=== PATIENT | female | born 1970 | race Caucasian/White ===

== ENCOUNTER 2017-09-24 22:15 | Emergency (ER) | payer MEDICARE, SELFPAY ==
[2017-09-24 22:15] VITALS: BP 140/80; PULSE 106; RESP 19; TEMP 37.3; O2SAT 94; BMI 37.3
--- NOTE | 2017-09-24 23:29 | ED.RN ---
pt reports to this rn that she has not thrown up and has just felt nauseated. pt reports nausea started less than 12hr ago. 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
--- NOTE | 2017-09-24 23:37 | ED.DCSUM_ITS ---
- ER Visit Summary Date of Service: 09/24/17 Chief Complaint: [] Nausea with diarrhea and stomach cramping History of Present Illness: The patient is a 47 F complaining of the above chest since earlier today. She is unsure if she picked something up from a friend who had a stomach flu or if she has food exposure diarrhea. No bad food she can think of however. She has mild diffuse cramps. No home treatment. No recent antibiotics. She has had 3 episodes of loose watery diarrhea Physical Examination: Vital signs reviewed General: Well-nourished well-developed Head: Normocephalic atraumatic Eyes: Pupils equal round and reactive to light extraocular movements intact ENT: TMs clear no hemotympanum no trauma Neck: Nontender full range of motion Cardiovascular: Regular rate rhythm no murmurs normal S1-S2 Respiratory: No distress clear to auscultation bilaterally chest nontender Abdomen: Soft nontender nondistended normal bowel sounds no masses Back: Nontender no CVA tenderness Extremities: Nontender active range of motion ?4 extremities no trauma Skin: Normal color no trauma Neuro alert oriented cranial nerves II through XII intact normal strength sensation reflexes Test Results: [] Emergency Department Course and Treatment: [] Is nontoxic. I do not feel she needs lab work or imaging. She was given intramuscular Toradol and oral Zofran and oral Imodium and will continue Bentyl Zofran and Imodium at home. She will follow-up as an outpatient. This is likely stomach flu. She will return if she worsens. Treatment Plan: [] Disposition: [] Impression: [] Nausea with abdominal cramping and diarrhea This note was generated with [employer] dictation software. It may contain incorrect words, spelling, and punctuation that were not noted in review of the chart prior to signing ED Disposition - Plan for ED Patient: Chief Complaint: Nausea/Vomiting/Diarrhea Referrals: Sourav Forbes MD [Primary Care Provider] -
--- NOTE | 2017-09-24 23:37 | ED.DEP ---
ED Disposition - Plan for ED Patient: Disposition: Home or Assisted Living Chief Complaint: Nausea/Vomiting/Diarrhea Instructions: ED Gastroenteritis Viral Prescriptions: Ondansetron [Zofran Odt] 4 mg PO Q8H PRN PRN #10 tab PRN Reason: Nausea Dicyclomine HCl [Bentyl] 20 mg PO TIDAC #20 cap Referrals: Sourav Forbes MD [Primary Care Provider] -
[2017-09-24] MEDS: Loperamide 2 MG Capsule 4 MG PO (23:47)
[2017-09-24] MEDS: Ketorolac 60 MG/2 ML Vial IM (23:48)
[2017-09-24] MEDS: Ondansetron ODT 4 MG Tablet PO (23:49)
== END 2017-09-24 23:54 | disposition home or self-care (01) ==
LOC: ED 23:49
PROVIDERS: Emergency Provider Emergency Medicine; Family Provider Internal Medicine; PCP Internal Medicine
DX: K52.9 Noninfective gastroenteritis and colitis, unspecified (principal); R11.0 Nausea; R10.9 Unspecified abdominal pain; R19.7 Diarrhea, unspecified; E66.9 Obesity, unspecified; E11.9 Type 2 diabetes mellitus without complications; I10 Essential (primary) hypertension; Z79.84 Long term (current) use of oral hypoglycemic drugs; Z79.899 Other long term (current) drug therapy
CPT/HCPCS: 96372; 99283

== ENCOUNTER 2018-07-26 18:13 | Emergency (ER) | payer MEDICARE, SELFPAY ==
[2018-07-26 18:13] VITALS: BP 123/73; PULSE 103; RESP 16; TEMP 36.3; O2SAT 98; BMI 37.5
--- NOTE | 2018-07-26 18:25 | ED.VISSUMM ---
- ER Visit Summary Date of Service: 07/26/18 Chief Complaint: Dizzy History of Present Illness: The patient is a 48 F who ate to [employer] and [employer], noticed she was feeling slightly dizzy took her blood sugar and it was in the 300s. She feels slightly lightheaded. She has no chest pain shortness of breath fever or chills. She is on oral hypoglycemics at home. She denies any nausea vomiting or abdominal pain. She does admit to not eating healthy recently Physical Examination: Not appear in acute distress. Slightly dry mucous membranes, no obvious facial deformity No C-spine tenderness supple neck. Regular rate and rhythm without any obvious murmurs Clear lungs bilaterally speaking in full sentences without any obvious respiratory distress Abdomen soft and nontender no guarding or rebound Moves all extremities without any difficulty or pain. Skin does not show any obvious rashes or lesions, no trauma. Alert oriented ?3 with no gross focal deficit Emergency Department Course and Treatment: Patient received IV fluids, blood work is unremarkable she feels improved I believe she can be discharged in stable condition he is to follow-up with her doctor, she has an appointment in 5 days. I educated her on somewhat healthy eating. Disposition: d/c in stable condition Impression: Hyperglycemia Dehydration This note was generated with [employer] dictation software. It may contain incorrect words, spelling, and punctuation that were not noted in review of the chart prior to signing ED Disposition - Plan for ED Patient: Disposition: Home or Assisted Living Diagnosis: DM type 2 (diabetes mellitus, type 2) Referrals: Sourav Forbes MD [Primary Care Provider] - 1 Week
[2018-07-26] MEDS: 0.9% Normal Saline 1,000 ML 1000 ML IV (18:39)
[2018-07-26 18:46] LABS: Bedside Glucose 407 mg/dL (70-110)
[2018-07-26 18:47] LABS: Absolute Lymphocyte Count 2.46 X10^3/ul (0.83-4.51); Absolute Neutrophil Count 9.9 X10^3/uL (2.0-7.7); Basophil# 0.05 X10^3/uL; Basophil% 0.4 % (0-1); Eosinophil# 0.07 X10^3/uL; Eosinophils% 0.5 % (0-5); Hematocrit 43.2 % (37-47); Hemoglobin 14.1 g/dl (12.0-15.0); Lymphocyte # 2.46 X10^3/ul (4.0); Lymphocyte % 18.4 % (19-41); Mean Corp Hgb Conc 32.6 g/gl (32-36); Mean Corpuscular Hgb 29.1 pg (27.0-32.0); Mean Corpuscular Volume 89.3 fL (81-99); Mean Platelet Vol. 10.2 fl (6.2-12.0); Monocyte# 0.91 X10^3/uL; Monocyte% 6.8 % (0-10); Neutrophil # 9.88 X10^3/uL (2.7-7.7); Neutrophil % 73.7 % (47-70); Platelet Count 466 K/mm3 (150-450); RBC Distribution Width CV 13.6 % (11.6-14.6); RBC Distribution Width SD 44.4 fl (35.1-43.9); Red Blood Count 4.84 M/mm3 (4.2-5.4); White Blood Count 13.4 K/mm3 (4.4-11.0)
[2018-07-26 18:48] LABS: POSITIVE COUNT NO; POSITIVE DIFFERENTIAL NO; POSITIVE MORPHOLOGY NO
[2018-07-26 19:02] LABS: ALB/GLOB Ratio 1.1 RATIO (0.9-2.4); AST(SGOT) 13 U/L (15-37); Alanine Aminotransfer ALT/SGPT 25 U/L (13-56); Albumin, Serum 4.2 g/dL (3.2-5.0); Alkaline Phosphatase 78 U/L (45-117); Anion Gap 14 (5-15); BUN 24 mg/dL (7-18); BUN/Creat Ratio 17.1 RATIO (10-20); Calcium,Total 9.9 mg/dL (8.5-10.1); Chloride 94 mmol/L (98-107); EST Glomerular Filtration Rate 42 mL/min (>60); Est Glom Filt Rate - Afr Amer 51 mL/min (>60); Estimated Creatinine Clearance 38.44 ml/min; Globulin 3.8 g/dL (2.2-4.2); Glucose 377 mg/dL (74-106); Potassium 3.3 mmol/L (3.5-5.1); Sodium Level 133 mmol/L (136-145)
--- NOTE | 2018-07-26 20:37 | ED.DEP ---
ED Disposition - Plan for ED Patient: Disposition: Home or Assisted Living Diagnosis: DM type 2 (diabetes mellitus, type 2) Referrals: Sourav Forbes MD [Primary Care Provider] - 1 Week
--- NOTE | 2018-07-26 20:39 | ED.DEP ---
ED Disposition - Plan for ED Patient: Disposition: Home or Assisted Living Diagnosis: DM type 2 (diabetes mellitus, type 2) Instructions: ED Hyperglycemia Diabetic Referrals: Sourav Forbes MD [Primary Care Provider] - 1 Week
[2018-07-26 21:01] VITALS: BP 125/60; PULSE 93; RESP 16; O2SAT 96
== END 2018-07-26 21:03 | disposition home or self-care (01) ==
PROVIDERS: Emergency Provider Emergency Medicine; Family Provider Internal Medicine; PCP Internal Medicine
DX: E11.65 Type 2 diabetes mellitus with hyperglycemia (principal); E86.0 Dehydration; Z79.84 Long term (current) use of oral hypoglycemic drugs
CPT/HCPCS: 80053; 82962; 85025; 96360; 96365; 99283; J7030

== ENCOUNTER 2018-12-11 21:48 | Emergency (ER) | payer MEDICARE, SELFPAY ==
[2018-12-11 21:49] VITALS: BP 128/70; PULSE 82; RESP 16; TEMP 36.7; O2SAT 97; BMI 38.9
--- NOTE | 2018-12-11 22:46 | ED.DCSUM_ITS ---
History of Present Illness Chief Complaint: Abscess Informant: Patient Narrative: Stated 5 days ago she developed a small pimple under her right breast fold. It is tender and sore. Is slightly gotten bigger over the last 5 days. No home treatment. She is never had this before. Current severity is mild. No surrounding redness. No fevers or chills.. Hurts to touch. - Past Medical History (1) Chest pain Status: Acute (2) DM type 2 (diabetes mellitus, type 2) Status: Chronic (3) HTN (hypertension), benign Status: Chronic (4) Obesity Status: Chronic Past Medical History - Allergies and Home Meds Allergies/Adverse Reactions: Allergies No Known Allergies Allergy (Verified 12/11/18 21:54) Primary Care Physician: Sourav Forbes MD [Primary Care Provider] - Prior records reviewed: Yes Past Medical History: None Surgical History: - - denies surgical history Lives: Alone Smoking Status: Never smoker Alcohol: None Drugs: None - Family History Maternal Family History: Reports: Heart Disease Paternal Family History: Reports: - - copd Review of Systems General: Denies: Chills, Fever, Sweats Eyes: Denies: Visual changes - bilaterally, Diplopia ENT: Denies: Rhinorrhea, Sore throat Cardiovascular: Denies: Chest pain, Palpitations Respiratory: Denies: Dyspnea, Cough, Dyspnea on exertion Gastrointestinal: Denies: Abdominal pain, Nausea, Vomiting, Diarrhea, Melena, Hematochezia Genitourinary: Denies: Dysuria, Hematuria, Frequency Musculoskeletal: Denies: Back pain, Extremity Pain Skin: Reports: Abscess. Denies: Rash Neurological: Denies: Headache, Weakness, Numbness Physical Exam Vital Signs/Narrative: Vital Signs Temp Pulse Resp BP Pulse Ox 12/11/18 21:49 98.0 F 82 16 128/70 H 97 General: Well nourished, Well developed, No Acute Distress Head: Normocephalic, Atraumatic Eyes: Perrl, EOMI ENT: Moist mucous membranes, No rhinorrhea Neck: Supple, Nontender Cardiovascular: Regular rate, Regular rhythm, No murmurs Respiratory: No distress, CTA bilaterally, Chest nontender Abdomen: Soft, Nontender, Nondistended, Normal bowel sounds Back: Nontender, Normal Inspection Extremities: Nontender, No edema Skin: Normal color, - - Has a superficial boil the size of a dime under her right breast at the skin fold. It is mildly tender. It is more hard than fluctuant. No surrounding cellulitis. Negative for: No rash Neurological: Alert, Oriented x3, Cranial nerves II-XII grossly intact, Normal Strength, Normal Sensation Psychological: Normal affect, Normal Mood Diagnostic/Tx/Re-eval - Medical Decision Making She consented to incision and drainage. Wound washed with chlorhexidine. Anesthetized with 5 cc of 1% lidocaine. Wound was then washed again with chlorhexidine. A linear incision approximately 1 cm was made across the 70% of the surface of the wound. There is mild purulent discharge. This was all sque ezed out. It is too superficial to place a wick. It was washed with saline and chlorhexidine. They will close by secondary intention. Given a dose of Bactrim and will continue this for the next 7 days. She is a diabetic. We will follow- up as an outpatient. ED Disposition - Plan for ED Patient: Disposition: Home or Assisted Living Diagnosis: Skin abscess, Encounter for incision and drainage procedure Instructions: ABSCESS, Incision and Drainage Prescriptions: Smz/Tmp Ds [Bactrim Ds] 1 tab PO BID #14 tab Prescription Printed Referrals: Sourav Forbes MD [Primary Care Provider] -
[2018-12-11] MEDS: Smz/Tmp Ds Tablet 1 TABLET PO (22:57)
[2018-12-11 23:31] VITALS: BP 124/76; PULSE 87; RESP 19; O2SAT 98
== END 2018-12-11 23:57 | disposition home or self-care (01) ==
PROVIDERS: Emergency Provider Emergency Medicine; Family Provider Internal Medicine; PCP Internal Medicine
DX: L02.219 Cutaneous abscess of trunk, unspecified (principal); E11.9 Type 2 diabetes mellitus without complications; I10 Essential (primary) hypertension; E66.9 Obesity, unspecified; Z79.84 Long term (current) use of oral hypoglycemic drugs; Z79.899 Other long term (current) drug therapy
CPT/HCPCS: 10060; 99283

== ENCOUNTER 2019-03-05 20:22 | Emergency (ER) | payer MEDICARE, SELFPAY ==
[2019-03-05 20:22] VITALS: BP 157/81; PULSE 85; RESP 17; TEMP 36.8; O2SAT 96; BMI 38.5
--- NOTE | 2019-03-05 20:25 | RAD_ITS ---
STUDY: X-RAY - RIGHT HAND, ATTENTION FIFTH FINGER REASON FOR EXAM: Female, 48 years old. Fall. Unable to straighten finger. TECHNIQUE: 3 view(s) of the finger were obtained. COMPARISON: None. FINDINGS: Normal metacarpal head. There is dorsal hyperextension all of the metacarpophalangeal joint. Normal proximal phalanx. Normal middle phalanx. Normal distal phalanx. There is a hallmark flexion of the proximal interphalangeal joint. Normal distal interphalangeal joint. The soft tissues are unremarkable. RAD/Finger(s) Min 2 Views IMPRESSION: Findings most suggestive of ligamentous injury along the flexor tendon sheath of the finger with hyperextension. There is no visualized fracture or dislocation. Electronically Signed: Derik Emerson DO at 20:46 EDT Tel [phone], Service support ,
--- NOTE | 2019-03-05 22:08 | DCINST.ED_ITS ---
ED Disposition - Plan for ED Patient: Instructions: Tendon Rupture, Finger Prescriptions: Hydrocodone Bitart/Apap 5-325 [[place] 5MG-325MG] 1 tab PO Q6H PRN PRN 3 Days #10 tab PRN Reason: Pain Prescription Printed Referrals: Garry Greer MD [STAFF PHYSICIAN] -
--- NOTE | 2019-03-05 22:08 | ED.DCSUM_ITS ---
- ER Visit Summary Date of Service: 03/05/19 Chief Complaint: Right pinky injury History of Present Illness: The patient is a 48 F who injured her right pinky finger when she fell today. No other injuries or complaints. Physical Examination: Right small finger is held in flexion at the patient PIP joint, and extension at the MCP joint. Skin is intact. Neurovascular intact distally. Test Results: X-rays show no fracture or dislocation. There is suggestion of a flexor tendon injury. Emergency Department Course and Treatment: Digital block was performed. Examination showed intact range of motion. No deformities. She was splinted in neutral position. Follow-up with hand surgery. Treatment Plan: As above Disposition: Discharge Impression: 1. Right small finger flexor tendon injury This note was generated with [employer] dictation software. It may contain incorrect words, spelling, and punctuation that were not noted in review of the chart prior to signing ED Disposition - Plan for ED Patient: Disposition: Home or Assisted Living Instructions: Tendon Rupture, Finger Prescriptions: Hydrocodone Bitart/Apap 5-325 [[place] 5MG-325MG] 1 tab PO Q6H PRN PRN 3 Days #10 tab PRN Reason: Pain Prescription Printed Referrals: Garry Greer MD [STAFF PHYSICIAN] -
[2019-03-05] MEDS: HYDROcodone Bitartrate/Apap 5/325 Tablet PO (22:23)
[2019-03-05 22:24] VITALS: BP 148/78; PULSE 78; RESP 16; O2SAT 99
== END 2019-03-05 22:25 | disposition home or self-care (01) ==
LOC: ED 21:39
PROVIDERS: Emergency Provider Emergency Medicine; Family Provider Internal Medicine; PCP Internal Medicine
DX: S66.104A Unspecified injury of flexor muscle, fascia and tendon of right ring finger at wrist and hand level, initial encounter (principal); W19.XXXA Unspecified fall, initial encounter; Y93.9 Activity, unspecified; Y92.9 Unspecified place or not applicable; E11.9 Type 2 diabetes mellitus without complications; I10 Essential (primary) hypertension; E78.00 Pure hypercholesterolemia, unspecified; Z79.899 Other long term (current) drug therapy; Z79.84 Long term (current) use of oral hypoglycemic drugs
CPT/HCPCS: 73140; 99282

== ENCOUNTER 2019-04-14 12:00 | Outpatient (RCR) | payer MEDICARE, SELFPAY ==
--- NOTE | 2019-03-20 10:06 | HP.OTEVAL_ITS ---
Patient's Visit Information DAYAMI MONTES is a 49 year old F, referred to Occupational Therapy by Jose Hurley MD, with a diagnosis of boutonniere deformity. Date of Evaluation: 03/19/19 Occupational Therapist: Marian Fu, JENNIFER/Rowdy, CHT - Subjective Subjective: This 49 year old female was seen for OT eval with dx of right LF Boutonniere deformiity. pt states she has increase pain if she has to use her hand. Pt states she had a fall on 03/05/19, and did see on 03/11/19. Pt states she has pain with ADls and IADLs. pt states she is using her orthosis daily. - ADLs Dressing: Bra, Shoes Fasteners: Tie shoes, Buttons, Zippers Bathing: Handle washcloth & soap, Wash hair Toileting: Perineal care Grooming: Comb hair, Squeeze toothpaste on Kitchen: Open jars, Take dish out of oven, Load/unload air conditioning specialist Miscellaneous: Open medication bottle, Write - Pain right LF 0 Pain Intensity Range: 8 - ROM MP: right LF 0/70 left 0/90 PIP: right LF 0/NT left 0/100 DIP: right LF 0/15 left 0/65 ROM Comments: with orthosis off no boutonniere deformity noted. - Strength Slat Basket Maker Machine: right NT left 40# Lateral Pinch: right 4# left 10# Tripod Pinch: right 2# left 8# - Sensation Sensation Comments: denies - Quick DASH-Disab of Arm,Shoulder& Hand Quick DASH Score: 56.8175 - Goals Goal:100% adherence to protocol: Yes Comment: Boutonniere deformity Goal:ROM equal to unaffected hand: Yes Goal:Slat Basket Maker Machine/Pinch strength at least 75% of unaffected hand: Yes Goal:No pain with affected hand use: Yes Goal:PIP Circumferences equal to unaffected hand: Yes Goal:Full use of affected hand in daily activities including: Yes - Rehabilitation General Assessment: Pt has been in orthosis for boutonniere deformity for 1 week. Current orthosis is providing good alignment and protection of PIP. Pt limited with ROM and strength while healing pt needs increase assistance with IADLs and ADLs. Pt would benefit from skilled OT services 1 x week for 6 weeks- Thapist is following acute boutonniere deformity protocol with no active PIP ROM until pt is at 6 weeks unless otherwise advised by dr. Pt demo understanding of DIP and MP ROM ex and use of orthosis and agrees to POC. Rehabilitation Potential: Good - Anticipated Interventions Anticipated Interventions: A/AAROM/PROM, Strengthening, Modalities, Orthoses, J oint Protection/Energy Conservation - Visit Plan Frequency: 1x/Week Duration: 6 Weeks TEXT: Thank you for the opportunity to evaluate your patient. For Medicare and Medicare HMO plans, please review the plan of care and approve it. It will need to be FAXED BACK to us at [phone] for Medicare purposes. Please let me know if there are questions or concerns regarding this plan of care. Physician Signature: Date:
--- NOTE | 2019-04-14 18:36 | HP.OTREVAL ---
Jose Hurley MD, It has been my pleasure to treat DAYAMI MONTES over the last 3 visits for boutonniere deformity. Please see the progress note below for an update on the occupational therapy plan of care! Subjective: pt arrives with orthosis on- states pain when she uses it- pt reports she is wearing splint at all times- pt 6 weeks post injury Objective/Function: right LF PIP .2 larger than unaffected hand. ROM of right LF PIP 0/80. pt demo with good healing and is 6 weeks injury- pt using orthosis and noted redness on dorsal PIP from orthosis. therapist rec'd pt to cont. with ROM ex and wear night orthosis for next 3 weeks. pt demo understanding. Plan Frequency: 1x/Week Duration: 3 Weeks Plan: cont with protocol Anticipated Interventions Anticipated Interventions: A/AAROM/PROM, Strengthening, Modalities, Orthoses, Joint Protection/Energy Conservation Please do not hesitate to contact me at [phone] by phone or if you have questions or concerns regarding this new plan of care! Sincerely, Marian Fu, OTR/L, CHT
--- NOTE | 2019-05-14 18:31 | HP.OT.NRP ---
HP - Discharge Summary - Patient Information DAYAMI MONTES was seen in my office for initial evaluation on 03/19/19. The following Plan of Care was established for this patient: Initial Frequency: 1x/Week Initial Duration: 3 Weeks Plan: cont with protocol - Anticipated Interventions Anticipated Interventions: A/AAROM/PROM, Strengthening, Modalities, Orthoses, Joint Protection/Energy Conservation This patient was last seen in our office 04/14/19. Pertinent comments regarding their Occupational therapy will appear below: Pt seen for 3 visits during her healing phase-pt returned to and has not scheduled further apts. due to time lapse in skilled services pt d/c at this time. At this point I will be discontinuing this patient from occupational therapy. I would be happy to see this patient again in the future if found appropriate by the physician. Thank you! Marian uF, OTR/L, CHT
== END 2019-04-14 19:00 | disposition home or self-care (01) ==
LOC: OT 12:00
PROVIDERS: Family Provider Internal Medicine; PCP Internal Medicine; Referring Provider Orthopaedic Surgery Hand Surgery; Visit Provider Orthopaedic Surgery Hand Surgery
DX: M20.021 Boutonniere deformity of right finger(s) (principal)
CPT/HCPCS: 97110; 97166; 97530

== ENCOUNTER 2019-05-28 14:05 | Emergency (ER) | payer MEDICARE, SELFPAY ==
[2019-05-28 14:06] VITALS: BP 152/103; PULSE 93; RESP 16; TEMP 36.4; O2SAT 96; BMI 38.5
--- NOTE | 2019-05-28 14:25 | VDLE_ITS ---
Reason For Study: Pain Procedure LEFT Exam performed portable in ED. GSV is normal. Lt FV distal visualized with color only, pt CFV is compressible, spontaneous, phasic, unable to tolerate compression. competent, and demonstrates normal A preliminary report was called and/or faxed augmentation. to [facility]. FV is compressible, spontaneous, phasic, competent and demonstrates normal augmentation. POP V is compressible, spontaneous, phasic, competent and demonstrates normal augmentation. T/P Trunk is compressible. PTV is compressible. LT PerV is compressible. Interpretation Summary There is no evidence of left lower extremity deep vein thrombosis. Left great saphenous vein appears patent and compressible segmentally. Limitation noted of left femoral vein distal inspection with patient unable to tolerate compression. Ordering Physician: Robyn Burgos Referring Physician: Sourav Forbes M.D. Performed By: Lynn Espinal RVT
--- NOTE | 2019-05-28 14:27 | ED.VIS.GEN ---
History of Present Illness Chief Complaint: Lower Extremity Injury Detail of Chief Complaint: Left leg pain Informant: Patient Onset: Days - 2 to 3 days Context: Gradual Onset Timing: Waxes and wanes Current Severity: Mild Maximum Severity: Moderate Narrative: Patient describes a waxing and waning pain to the posterior left knee and along the medial calf that is been ongoing for the past 2 or 3 days. She denies any known injury. No history of blood clots and no risk factors. Patient states she went to urgent care but was told they could not rule out a blood clot was sent to the emergency room. - Past Medical History (1) High cholesterol Status: Chronic (2) DM type 2 (diabetes mellitus, type 2) Status: Chronic (3) HTN (hypertension), benign Status: Chronic Past Medical History - Allergies and Home Meds Allergies/Adverse Reactions: Allergies No Known Allergies Allergy (Verified 05/28/19 14:05) Primary Care Physician: Sourav Forbes MD [Primary Care Provider] - Prior records reviewed: Yes Surgical History: - - denies surgical history Smoking Status: Never smoker - Family History Maternal Family History: Reports: Heart Disease Paternal Family History: Reports: - - copd Review of Systems General: Denies: Chills, Fever Eyes: Denies: Visual changes - bilaterally ENT: Denies: Bilateral ear pain Cardiovascular: Denies: Chest pain, Palpitations Respiratory: Denies: Dyspnea, Cough Gastrointestinal: Denies: Abdominal pain, Nausea, Vomiting Musculoskeletal: Reports: Swelling, Extremity Pain Skin: Denies: Rash Neurological: Denies: Headache Hematologic: Denies: Easy bruising Allergy: Denies: Uticaria Physical Exam Vital Signs/Narrative: Vital Signs Temp Pulse Resp BP Pulse Ox 05/28/19 14:06 97.5 F L 93 16 152/103 H 96 Inital Vital Signs reviewed: Yes General: Well nourished, Well developed Head: Normocephalic ENT: Moist mucous membranes Neck: Supple Cardiovascular: Regular rate, Regular rhythm Respiratory: No distress, CTA bilaterally Abdomen: Soft, Nontender Extremities: - - Mild tenderness palpation posterior left knee. No palpable masses. No significant edema is noted of the left leg when compared to right. No skin changes. Strong distal pulses are noted. There is good range of motion of the joints. Skin: Normal color, No rash Neurological: Alert, Oriented x3, Normal Strength, Normal Sensation Psychological: Normal affect Diagnostic/Tx/Re-eval Venous ultrasound of the left lower extremity is obtained and reveals no evidence of DVT or Acosta's cyst. - Medical Decision Making Test results are discussed with patient at bedside. She has had no recent injury do not think x-rays be beneficial. She will be given an Nicolas wrap and advised ice and elevate her knee. If symptoms worsen she is to follow-up for repeat testing. ED Disposition - Plan for ED Patient: Disposition: Home or Assisted Living Diagnosis: Knee sprain Instructions: Knee Sprain Referrals: Sourav Forbes MD [Primary Care Provider] - 1 Week if not improving
== END 2019-05-28 15:39 | disposition home or self-care (01) ==
PROVIDERS: Emergency Provider Emergency Medicine; Family Provider Internal Medicine; PCP Internal Medicine
DX: S83.92XA Sprain of unspecified site of left knee, initial encounter (principal); X58.XXXA Exposure to other specified factors, initial encounter; Y93.9 Activity, unspecified; Y92.9 Unspecified place or not applicable; E78.00 Pure hypercholesterolemia, unspecified; E11.9 Type 2 diabetes mellitus without complications; I10 Essential (primary) hypertension; Z79.84 Long term (current) use of oral hypoglycemic drugs; Z79.899 Other long term (current) drug therapy; M79.89 Other specified soft tissue disorders
CPT/HCPCS: 93971; 99282

== ENCOUNTER 2019-08-13 23:09 | Observation (INO) | payer MEDICARE, SELFPAY ==
[2019-08-13 23:10] VITALS: BP 124/61; PULSE 102; RESP 16; TEMP 36.5; O2SAT 99; BMI 39.3
--- NOTE | 2019-08-13 23:24 | RAD_ITS ---
STUDY: X-RAY CHEST REASON FOR EXAM: Female, 49 years old. cp that started tonight TECHNIQUE: Single frontal view of the chest. COMPARISON: 02/17/2017 FINDINGS: The lungs are clear and expanded. There is no demonstrated pleural abnormality. Normal size heart. Normal mediastinum and mahendra. Normal visualized pulmonary arteries. Normal visualized aortic arch and descending thoracic aorta. Normal visualized thoracic spine. Normal visualized ribs, clavicles, and shoulders. There is no demonstrated abnormality of the visualized soft tissue structures of the upper abdomen. RAD/Chest 1 View (Portable) IMPRESSION: Normal x-ray examination of the chest. Electronically Signed: Darin Butler MD at 23:44 EST Tel , Service support ,
--- NOTE | 2019-08-13 23:24 | EKG12_ITS ---
Test Reason : CP ADMISSION Blood Pressure : / mmHG Vent. Rate : 080 BPM Atrial Rate : 080 BPM P-R Int : 160 ms QRS Dur : 088 ms QT Int : 394 ms P-R-T Axes : -04 052 026 degrees QTc Int : 454 ms Normal sinus rhythm Normal ECG When compared with ECG of 14-AUG-2019 01:08, MANUAL COMPARISON REQUIRED, DATA IS UNCONFIRMED Confirmed by CASTRO [place], CHRISTA ([id number]), city editor AMARILIS GEORGE ([id number]) on 08/18/2019 2:50:50 PM Referred By: LESLIE Confirmed By:JEZ ERAZO MD
--- NOTE | 2019-08-13 23:25 | ED.VIS.GEN ---
History of Present Illness Chief Complaint: Chest Pain Informant: Patient Onset: Today Current Severity: Mild Maximum Severity: Moderate Narrative: Patient presents with epigastric and substernal chest pressure that started approximate 45 minutes prior to arrival. She states she has had decreased p.o. intake lately. She ate approximately 3 bites of her dinner and then developed this chest pressure. She has no known history of reflux disease. She does report that it feels similar to heartburn. - Past Medical History (1) DM type 2 (diabetes mellitus, type 2) Status: Chronic (2) HTN (hypertension), benign Status: Chronic (3) High cholesterol Status: Chronic (4) Obesity Status: Chronic Past Medical History - Allergies and Home Meds Allergies/Adverse Reactions: Allergies No Known Allergies Allergy (Verified 08/13/19 23:18) Primary Care Physician: Sourav Forbes MD [Primary Care Provider] - Prior records reviewed: Yes Surgical History: - - denies surgical history Lives: Spouse/ Significant Other Smoking Status: Never smoker - Family History Maternal Family History: Reports: Heart Disease Paternal Family History: Reports: - - copd Review of Systems General: Denies: Chills, Fever Eyes: Denies: Visual changes - bilaterally ENT: Denies: Bilateral ear pain Cardiovascular: Reports: Chest pain Respiratory: Denies: Dyspnea, Cough Gastrointestinal: Reports: Abdominal pain. Denies: Nausea, Vomiting, Diarrhea Musculoskeletal: Denies: Extremity Pain Skin: Denies: Rash Neurological: Denies: Headache Allergy: Denies: Uticaria Physical Exam Vital Signs/Narrative: Vital Signs Temp Pulse Resp BP Pulse Ox 08/13/19 23:10 97.7 F L 102 H 16 124/61 H 99 Inital Vital Signs reviewed: Yes General: Well nourished, Well developed Head: Normocephalic ENT: Moist mucous membranes Cardiovascular: Regular rate, Regular rhythm Respiratory: No distress, CTA bilaterally, Chest tenderness - Chest tenderness over the sternum. Abdomen: Soft, Normal bowel sounds, Tender - Epigastric tenderness.. Negative for: Guarding, Rebound tenderness Extremities: Nontender Skin: Normal color Neurological: Alert, Oriented x3 Psychological: Normal affect Diagnostic/Tx/Re-eval Impressions Chest X-Ray 08/13/19 23:24 IMPRESSION: Normal x-ray examination of the chest. Electronically Signed: Darin Butler MD at 23:44 EST Tel , Service support , 08/13/19 23:24 Chest 1 View (Portable) [RAD] Stat Laboratory Results 08/13/19 08/13/19 23:57 23:57 WBC 13.9 H RBC 4.17 L Hgb 12.9 Hct 38.7 MCV 92.8 MCH 30.9 MCHC 33.3 RDW Std Deviation 45.8 H RDW Coeff of Kaushik 13.6 Plt Count 470 H MPV 9.9 Immature Gran % (Auto) 0.300 Neut % (Auto) 61.5 Lymph % (Auto) 28.7 [place] % (Auto) 7.6 Eos % (Auto) 1.5 Baso % (Auto) 0.4 Absolute Neuts (auto) 8.5 H Absolute Lymphs (auto) 3.98 Nucleated RBC % 0 Sodium 136 Potassium 4.2 Chloride 102 Carbon Dioxide 26.0 Anion Gap 8 BUN 20 H Creatinine 0.83 Estim Creat Clear Calc 64.13 Est GFR (MDRD) Af Amer 93 Est GFR (MDRD) Non-Af 77 BUN/Creatinine Ratio 24.0 H Glucose 154 H Calcium 9.7 Troponin I < 0.015 - EKG Initial EKG Interpretation: Sinus Rhythm - Sinus at 99. No obvious ST change. - Medical Decision Making Patient was given aspirin along with a GI cocktail. On repeat evaluation she reported no change in her symptoms. Initial blood work is negative, however patient did come in very quickly after onset of symptoms. With no history of reflux and no change with GI cocktail, I cannot clearly state that this is GERD. Repeat EKG will be obtained at this time, patient be given a dose of morphine, and she will be admitted for observation overnight. ED Disposition - Plan for ED Patient: Disposition: Acute Care Hospital [facility] Diagnosis: Chest pain Referrals: Sourav Forbes MD [Primary Care Provider] -
[2019-08-13 23:46] VITALS: O2SAT 97
[2019-08-13] MEDS: Aspirin 81 MG TAB.CHEW 324 MG PO (23:52)
[2019-08-13] MEDS: Mag Hydrox/Al Hydrox/Simeth 30 ML UDC PO (23:53)
[2019-08-13] MEDS: 0.9% Normal Saline 1,000 ML 150 ML IV (23:57)
[2019-08-14] VITALS (12 sets, daily range): BP systolic 84–129; BP diastolic 42–74; PULSE 74–95; RESP 14–20; TEMP 36.5–36.7; O2SAT 94–100; BMI 39.1; BMI 39.2
[2019-08-14 00:04] LABS: Absolute Lymphocyte Count 3.98 X10^3/uL (0.83-4.51); Absolute Neutrophil Count 8.5 X10^3/uL (2.0-7.7); Basophil# 0.06 X10^3/uL; Basophil% 0.4 % (0-1); Eosinophil# 0.21 X10^3/uL; Eosinophils% 1.5 % (0-5); Hematocrit 38.7 % (37-47); Hemoglobin 12.9 g/dL (12.0-15.0); Lymphocyte # 3.98 X10^3/ul (4.0); Lymphocyte % 28.7 % (19-41); Mean Corp Hgb Conc 33.3 g/dL (32-36); Mean Corpuscular Hgb 30.9 pg (27.0-32.0); Mean Corpuscular Volume 92.8 fL (81-99); Mean Platelet Vol. 9.9 fl (6.2-12.0); Monocyte# 1.05 X10^3/uL; Monocyte% 7.6 % (0-10); NRBC Flagged by Analyzer 0 % (0-5); Neutrophil # 8.54 X10^3/uL (2.7-7.7); Neutrophil % 61.5 % (47-70); Platelet Count 470 K/mm3 (150-450); RBC Distribution Width CV 13.6 % (11.6-14.6); RBC Distribution Width SD 45.8 fl (35.1-43.9); Red Blood Count 4.17 M/mm3 (4.2-5.4); White Blood Count 13.9 K/mm3 (4.4-11.0)
[2019-08-14 00:23] LABS: Anion Gap 8 (5-15); BUN 20 mg/dL (7-18); Calcium,Total 9.7 mg/dL (8.5-10.1); Chloride 102 mmol/L (98-107); Creatinine, Serum 0.83 mg/dL (0.55-1.02); EST Glomerular Filtration Rate 77 mL/min (>60); Est Glom Filt Rate - Afr Amer 93 mL/min (>60); Estimated Creatinine Clearance 64.13 ml/min; Glucose 154 mg/dL (74-106); Potassium 4.2 mmol/L (3.5-5.1); Sodium Level 136 mmol/L (136-145)
--- NOTE | 2019-08-14 00:58 | EKG12_ITS ---
Test Reason : REPEAT Blood Pressure : / mmHG Vent. Rate : 088 BPM Atrial Rate : 088 BPM P-R Int : 150 ms QRS Dur : 088 ms QT Int : 364 ms P-R-T Axes : -03 047 015 degrees QTc Int : 440 ms Normal sinus rhythm Nonspecific ST abnormality Abnormal ECG Confirmed by CASTRO [place], CHRISTA ([id number]), scientific publications editor AMARILIS GEORGE ([id number]) on 08/18/2019 2:33:53 PM Referred By: ARCHANA Confirmed By:JEZ ERAZO MD
--- NOTE | 2019-08-14 00:58 | PCM.HP.STD ---
Problem List (1) High cholesterol Status: Chronic (2) Obesity Status: Chronic (3) HTN (hypertension), benign Status: Chronic (4) DM type 2 (diabetes mellitus, type 2) Status: Chronic (5) Chest pain Status: Acute History of Present Illness Date of Admission: 08/14/19 Chief Complaint: Chest Pain The patient is a 49 year old F with a significant history of hypertension; diabetes mellitus; hyperlipidemia; depression and arthritis who presents emergency department with progressively worsening substernal chest pain that started about 15 to 20 minutes before presentation. She describes her chest pain as sharp; and also as a heartburn.. Her chest pain worsens when she sits back. She denies any ameliorating factors. Chest pain started a few minutes (about 5 minutes) before she started eating goulash. However her chest pain worsened while she was eating to the point that she had to stop. Because of the pain she could not swallow. Her chest pain radiated from her sternum upwards. At the emergency department she was given some GI cocktail which did not help her. She also received some morphine that gave her some mild relief. She reports epigastric pain that started about 2 days ago. About 3 to 4 years ago she had a normal stress test. Past Medical History Past Medical History (Chronic Problems): Chronic Problems High cholesterol (Chronic) Obesity (Chronic) HTN (hypertension), benign (Chronic) DM type 2 (diabetes mellitus, type 2) (Chronic) Allergies No Known Allergies Allergy (Verified 08/13/19 23:18) Home Medications: Ambulatory Orders Medication Instructions Recorded Fluoxetine [Prozac] 20 mg PO DAILY 03/17/16 Hydrochlorothiazide [Hctz] 25 mg PO DAILY 03/17/16 Lisinopril [Zestril] 40 mg PO DAILY 03/17/16 Oxybutynin Chloride [Ditropan Xl] 10 mg PO DAILY 03/17/16 Pravastatin [Pravachol] 40 mg PO DAILY 03/17/16 metFORMIN HCl [Glucophage] 1,000 mg PO BID 03/17/16 Glipizide [Glipizide ER] 10 mg PO DAILY 12/11/18 Surgical History: tonsillectomy, - Lives: Spouse/ Significant Other Smoking Status: Never smoker Alcohol: None - *Family History Maternal History Items: Heart Disease - Her mother had atrial fibrillation. Paternal History Items: Pulmonary Disease - COPD, - Review of Systems Constitutional: Denies: Chills, Fever, Weight Change HEENT: Denies: Head Aches, Sinus Congestion, Sinus Drainage Cardiovascular: Reports: Chest Pain. Denies: Palpitations Respiratory: Reports: Shortness of Breath. Denies: Cough, Shortness of breath at rest, Sputum production Gastrointestinal: Denies: Abdominal Pain, Nausea, Vomiting Genitourinary: Denies: Dysuria Musculoskeletal: Denies: Joint Pain, Joint Tenderness Skin: Denies: Rash, Wounds Neurological: Denies: Numbness, Tingling, Focal weakness Psychiatric: Denies: Anxiety, Depression, Homicidal Ideations, Suicidal Ideations Hematologic/ Lymphatic: Denies: Easy Bruising, Easy Bleeding VTE Information - Inpt Only VTE Present on Admission: No VTE Mechan Device Prophylaxis: SCD's VTE Pharm Prophylaxis ordered?: No Patient Problems: Active and Suspected Problems Chest pain (Acute) - Physical Exam Vitals/I&O's: Vital Signs Temp Pulse Resp BP Pulse Ox 97.7 F L 95 19 H 121/74 H 97 08/13/19 23:10 08/14/19 00:29 08/14/19 00:29 08/14/19 00:29 08/14/19 00:29 Oxygen Delivery Method Room Air Weight: 97.6 kg Body Mass Index (BMI) 39.3 Finger Stick Blood Glucose 407 General: Alert, Oriented x3, Cooperative HEENT: Atraumatic, PERRLA, EOMI, Normocephalic Neck: Supple, No JVD, Negative Carotid Bruits Lungs: Clear to auscultation, Normal air movement, - - Tender chest Cardiovascular: Regular rate, Normal S1, Normal S2, No murmurs Abdomen: Bowel Sounds Present, Soft, Non Tender Extremities: No edema, Capillary Refill Less than 3 Seconds Skin: No rashes, No breakdown Musculoskeletal: No Tenderness to Palpation of Joints or Extremities Neurological: Cranial nerves II-XII grossly intact Psych/Mental Status: Normal Affect, Appropriate Laboratory Results 08/13/19 23:57: WBC 13.9 H, RBC 4.17 L, Hgb 12.9, Hct 38.7, MCV 92.8, MCH 30.9, MCHC 33.3, RDW Std Deviation 45.8 H, RDW Coeff of Kaushik 13.6, Plt Count 470 H, MPV 9.9, Immature Gran % (Auto) 0.300, Neut % (Auto) 61.5, Lymph % (Auto) 28.7, [place] % (Auto) 7.6, Eos % (Auto) 1.5, Baso % (Auto) 0.4, Absolute Neuts (auto) 8.5 H, Absolute Lymphs (auto) 3.98, Nucleated RBC % 0 08/13/19 23:57: Sodium 136, Potassium 4.2, Chloride 102, Carbon Dioxide 26.0, Anion Gap 8, BUN 20 H, Creatinine 0.83, Estim Creat Clear Calc 64.13, Est GFR (MDRD) Af Amer 93, Est GFR (MDRD) Non-Af 77, BUN/Creatinine Ratio 24.0 H, Glucose 154 H, Calcium 9.7, Troponin I < 0.015 Current Medications Sodium Chloride () 1,000 mls @ 150 mls/hr IV .Q6H40M ИРИНА Last Admin: 08/13/19 23:57 Dose: 150 mls/hr Documented by: Morphine Sulfate () 4 mg IV X1 ONE Stop: 08/14/19 00:58 Ondansetron HCl (Zofran) 4 mg IV X1 ONE Stop: 08/14/19 00:59 Assessment/Plan All Active Problems Chest pain (Acute) The patient is a 49 year old F with a significant history of hypertension; diabetes mellitus; hyperlipidemia; depression and arthritis who presents at the emergency department with progressively worsening substernal chest pain Chest pain Place on a monitored bed at the PCU CXR independently reviewed confirms no acute cardiopulmonary process. EKG independently reviewed confirms T wave flattening in inferior and anterior leads compared with EKG on 17 February 2017. Received aspirin 324 mg in emergency department ASA 81 mg p.o. daily ordered. Morphine as needed for pain We will check lipid panel. Statin: Continue home pravastatin. Initial cardiac enzymes was unremarkable. Serial cardiac enzymes Stat EKG as needed for chest pain Lisinopril continued. Chemical stress test in the AM if the cardiac enzymes are negative. Of note patient has bilateral knee arthritis and is not be optimal for patient to do treadmill stress test. Hypertension On presentation blood pressure was fairly stable Elevators and lisinopril continued. Trend blood pressure and adjust blood pressure medication. Depression: Prozac continued Diabetes mellitus with hyperglycemia: Glipizide continued. Hold metformin. Accu-Chek with correction scale insulin. Overactive bladder: Ditropan continued Morbid obesity: BMI of 39.4. Complicates care. DVT prophylaxis SCD while planning for cardiac work up for chest pain Code Visit OBSV E&M: 04141 Initial observation care L2
[2019-08-14] MEDS: Ondansetron 4 MG/2 ML Vial IV (01:04)
[2019-08-14] MEDS: Morphine 4 MG/ML Syringe IV (01:04)
--- NOTE | 2019-08-14 01:38 | EKG12_ITS ---
Test Reason : CP Blood Pressure : / mmHG Vent. Rate : 099 BPM Atrial Rate : 099 BPM P-R Int : 144 ms QRS Dur : 074 ms QT Int : 370 ms P-R-T Axes : 005 077 038 degrees QTc Int : 474 ms Normal sinus rhythm Nonspecific ST and T wave abnormality Abnormal ECG Confirmed by CASTRO [place], CHRISTA ([id number]), editor book AMARILIS GEORGE ([id number]) on 08/18/2019 2:33:42 PM Referred By: ARCHANA Confirmed By:JEZ ERAZO MD
[2019-08-14 06:16] LABS: Absolute Lymphocyte Count 3.45 X10^3/uL (0.83-4.51); Basophil# 0.05 X10^3/uL; Basophil% 0.5 % (0-1); Eosinophil# 0.11 X10^3/uL; Eosinophils% 1.1 % (0-5); Hematocrit 35.2 % (37-47); Hemoglobin 11.6 g/dL (12.0-15.0); Lymphocyte # 3.45 X10^3/ul (4.0); Lymphocyte % 33.3 % (19-41); Mean Corpuscular Hgb 30.5 pg (27.0-32.0); Mean Corpuscular Volume 92.6 fL (81-99); Mean Platelet Vol. 9.6 fl (6.2-12.0); Monocyte# 0.75 X10^3/uL; Monocyte% 7.2 % (0-10); NRBC Flagged by Analyzer 0 % (0-5); Neutrophil # 5.96 X10^3/uL (2.7-7.7); Neutrophil % 57.6 % (47-70); Platelet Count 396 K/mm3 (150-450); RBC Distribution Width CV 13.6 % (11.6-14.6); RBC Distribution Width SD 46.2 fl (35.1-43.9); White Blood Count 10.4 K/mm3 (4.4-11.0)
[2019-08-14] MEDS: Aspirin E.C. 81 MG Tablet PO (06:23)
[2019-08-14] MEDS: Lisinopril 40 MG Tablet PO (06:23)
[2019-08-14 06:35] LABS: Cholesterol 129 mg/dL (200); High Density Lipoprotein 61 mg/dL; Triglycerides 68 mg/dL; Very Low Density Lipoprotein 14 mg/dL (5-40)
[2019-08-14 06:45] LABS: Bedside Glucose 108 mg/dL (70-110)
--- NOTE | 2019-08-14 11:08 | STRESSREP ---
Stress Test Report Date: 08/14/2019 Procedure: Pharmacologic stress nuclear imaging study Indications: [Chest pain] Consent: Per the patient Procedure: The patient underwent pharmacologic (Regadenoson) evaluation with a peak heart rate of 106 beats per minute (62 %predicted maximal heart rate) and a peak blood pressure of 104/58 mmHg. The baseline ECG demonstrated [normal sinus rhythm]. EKG during lexiscan infusion revealed no significant ischemic changes. EKG post infusion revealed no significant ischemic changes. [There were no cardiac dysrhythmias pretest, during pharmacologic infusion, or recovery]. [There was no complaint of chest discomfort during pharmacologic infusion or recovery]. The examination was discontinued secondary to completion of protocol. Impression: 1. Lexiscan stress test test is negative for Lexiscan infusion induced EKG changes of ischemia. 2. Lexiscan stress test test is negative for Lexiscan infusion induced chest pain. 3. Results of the nuclear portion of the test is as below Myocardial perfusion imaging study: Technique: The patient was injected with 14.1 millicuries of technetium 99m Cardiolite and subsequently rest SPECT Cardiolite nuclear imaging was obtained in the horizontal long, vertical long, and short axis views. The patient underwent pharmacologic (Regadenoson) evaluation. Please see above for details. The patient was injected with 44.3 millicuries of technetium 99m Cardiolite and subsequently stress SPECT Cardiolite nuclear imaging was obtained in the horizontal long, vertical long, and short axis views. A gated Cardiolite study at peak stress was obtained. Interpretation: Rest and stress SPECT Cardiolite nuclear imaging status post realignment, normalization, and attenuation correction demonstrate normal myocardial radioisotope uptake. Gated images reveal septal hypokinesis which could be artifactual. The reported LVEF is 46 %. Impression: 1. There is no evidence of ischemia or infarction. 2. Estimated ejection fraction is 46%. Consider 2D echo for correlation. This note was generated with [employer] software. It may contain incorrect words, spelling, and punctuation that were not noted in checking the note before signing.
--- NOTE | 2019-08-14 11:19 | ECHOCS_ITS ---
Reason For Study: CHEST PAIN Procedure This was a 2D Doppler, Color Flow transthoracic echocardiogram. The study was technically difficult. Contrast injection was performed. Exam performed portable in patient room. Left Ventricle Normal LV size. The estimated ejection fraction is 55 %. Normal diastology for age. No regional wall motion abnormalities noted. Right Ventricle Normal RV size. Normal systolic function. Atria Normal left atrium. Normal right atrium. No doppler evidence for ASD. Mitral Valve There is no mitral valve stenosis. No mitral valve insufficiency. Tricuspid Valve There is no tricuspid stenosis. Trivial tricuspid valve insufficiency. Unable to estimate RV systolic pressure due to insufficient tricuspid regurgitant envelope. Aortic Valve Trisinus/trileaflet aortic valve. There is no aortic stenosis. No aortic valve insufficiency. Pulmonic Valve There is no pulmonic valvular stenosis. No pulmonic valve insufficiency. Great Vessels Normal aortic root. Pericardium/Pleural No pericardial effusion. Medication Diluted definity 4.0ml given slow IV push to enhance endocardial definition. MMode/2D Measurements & Calculations LVIDd: 5.1 cm IVSd: 0.73 cm Ao root diam: 2.9 cm LVIDs: 3.5 cm LVPWd: 0.81 cm RVDd: 3.5 cm FS: 31.7 % LAV(MOD-bp): 40.1 ml EDV(MOD-sp4): 110.8 ml EDV(MOD-sp2): 108.2 ml LAV(MOD-bp) Indexed: 20.4 ml/m2 ESV(MOD-sp4): 43.1 ml EF(MOD-sp2): 57.0 % LAV(MOD-sp2): 35.2 ml EF(MOD-sp4): 61.1 % LAV(MOD-sp4): 39.7 ml SV(MOD-sp4): 67.7 ml SV(MOD-sp2): 61.7 ml LA A4 area: 16.6 cm2 LA dimension(2D): 3.7 cm RA A4 area: 13.9 cm2 Time Measurements MV dec time: 0.21 sec Doppler Measurements & Calculations MV E max magdi: 80.1 cm/sec Lat Peak E' Magdi: 15.6 cm/sec Med Peak E' Magdi: 8.5 cm/sec MV A max magdi: 93.3 cm/sec E/E' lat: 5.1 E/E' med: 9.5 MV E/A: 0.86 Ao V2 max: 140.3 cm/sec LV V1 max: 102.9 cm/sec PA V2 max: 127.9 cm/sec Ao max P.9 mmHg LV V1 max P.2 mmHg TR max magdi: 246.6 cm/sec TR max P.3 mmHg Interpretation Summary The estimated ejection fraction is 55 %. Normal diastology for age. Ordering Physician: Jatin Mathews Referring Physician: Sourav Forbes M.D. Performed By: Karen Hernandez, CABRERA, RVT
[2019-08-14] MEDS: FLUoxetine 20 MG Capsule PO (11:55)
[2019-08-14] MEDS: glipiZIDE XL 5 MG Tablet 10 MG PO (11:55)
[2019-08-14] MEDS: Tolterodine Tartrate 2 MG CAP.SA PO (11:55)
[2019-08-14 12:06] LABS: Bedside Glucose 108 mg/dL (70-110)
--- NOTE | 2019-08-14 13:50 | PN_ITS ---
<Jatin Matehws - Last Filed: 08/14/19 13:50> Patient Problems: Active and Suspected Problems Chest pain (Acute) Reason for Visit: chest pain Subjective: chest pain resolved today. Pt resting comfortably in bed NAD. Stress test this AM with no ischemia however possible hypokinesis and echo recommended. Pt now awaiting echo. Vitals/I&O's: Vital Signs Temp Pulse Resp BP Pulse Ox 97.8 F 78 16 101/43 L 95 08/14/19 13:46 08/14/19 13:46 08/14/19 13:46 08/14/19 13:46 08/14/19 13:46 Oxygen Delivery Method Room Air Weight: 214 lb 1.102 oz Body Mass Index (BMI) 39.1 Finger Stick Blood Glucose 407 Intake and Output for Last 24 Hours 08/12/19 08/13/19 08/14/19 23:59 23:59 23:59 Intake Total 857.5 / 857.5 Balance 857.5 / 857.5 General: Alert, Oriented x3, Cooperative HEENT: Atraumatic, PERRLA, EOMI, Normocephalic Neck: Supple, No JVD, Negative Carotid Bruits Lungs: Clear to auscultation, Normal air movement Cardiovascular: Regular rate, No murmurs Abdomen: Bowel Sounds Present, Soft, Non Tender Extremities: No edema, Capillary Refill Less than 3 Seconds Skin: No rashes, No breakdown Musculoskeletal: No Tenderness to Palpation of Joints or Extremities Neurological: Cranial nerves II-XII grossly intact Psych/Mental Status: Normal Affect, Appropriate, Alert and oriented to time, place, person, mood and affect Laboratory Results 08/13/19 23:57: WBC 13.9 H, RBC 4.17 L, Hgb 12.9, Hct 38.7, MCV 92.8, MCH 30.9, MCHC 33.3, RDW Std Deviation 45.8 H, RDW Coeff of Kaushik 13.6, Plt Count 470 H, MPV 9.9, Immature Gran % (Auto) 0.300, Neut % (Auto) 61.5, Lymph % (Auto) 28.7, [place] % (Auto) 7.6, Eos % (Auto) 1.5, Baso % (Auto) 0.4, Absolute Neuts (auto) 8.5 H, Absolute Lymphs (auto) 3.98, Nucleated RBC % 0 08/13/19 23:57: Sodium 136, Potassium 4.2, Chloride 102, Carbon Dioxide 26.0, Anion Gap 8, BUN 20 H, Creatinine 0.83, Estim Creat Clear Calc 64.13, Est GFR (MDRD) Af Amer 93, Est GFR (MDRD) Non-Af 77, BUN/Creatinine Ratio 24.0 H, Glucose 154 H, Calcium 9.7, Troponin I < 0.015 08/14/19 03:06: Troponin I < 0.015 08/14/19 05:55: WBC 10.4, RBC 3.80 L, Hgb 11.6 L, Hct 35.2 L, MCV 92.6, MCH 30.5, MCHC 33.0, RDW Std Deviation 46.2 H, RDW Coeff of Kaushik 13.6, Plt Count 396, MPV 9.6, Immature Gran % (Auto) 0.300, Neut % (Auto) 57.6, Lymph % (Auto) 33.3, [place] % (Auto) 7.2, Eos % (Auto) 1.1, Baso % (Auto) 0.5, Absolute Neuts (auto) 6.0, Absolute Lymphs (auto) 3.45, Nucleated RBC % 0 08/14/19 05:55: Troponin I < 0.015, Triglycerides 68, Cholesterol 129, LDL Cholesterol 54, VLDL Cholesterol 14, HDL Cholesterol 61 08/14/19 06:23: POC Glucose 108 08/14/19 11:58: POC Glucose 108 Current Medications Acetaminophen (Tylenol) 650 mg PO Q6H PRN PRN PRN Reason: Pain Score 1-10/Temp > 100.7 F Aspirin (Ecotrin) 81 mg PO DAILY@0800 [facility] Last Admin: 08/14/19 06:23 Dose: 81 mg Documented by: Fluoxetine HCl (Prozac) 20 mg PO DAILY [facility] Last Admin: 08/14/19 11:55 Dose: 20 mg Documented by: Glipizide (Glucotrol Xl) 10 mg PO DAILYCM [facility] Last Admin: 08/14/19 11:55 Dose: 10 mg Documented by: Glucagon () 1 mg IM .X1 PRN PRN Reason: Hypoglycemia Hydrochlorothiazide (Hctz) 25 mg PO DAILY [facility] Last Admin: 08/14/19 11:53 Dose: Not Given Documented by: Sodium Chloride () 250 mls @ 15 mls/hr IV .[id number] PRN PRN Reason: Saline Flush Sodium Chloride () 250 mls @ 15 mls/hr IV .[id number] PRN PRN Reason: Additional IVPB Infusion Dextrose (Dextrose 10%-Water) 250 mls @ 999 mls/hr IV .Q16M PRN; Protocol PRN Reason: HYPOGLYCEMIA Insulin Human Lispro (Humalog Kwikpen (Bkc)) 0 unit SC Q6 [facility]; Protocol Last Admin: 08/14/19 11:59 Dose: Not Given Documented by: Lisinopril (Zestril) 40 mg PO DAILY [facility] Last Admin: 08/14/19 06:23 Dose: 40 mg Documented by: Melatonin (Melatonin) 3 mg PO QHS PRN PRN PRN Reason: INSOMNIA Morphine Sulfate () 2 mg IV Q3H PRN PRN PRN Reason: Pain Score 6-10/10 Ondansetron HCl (Zofran) 4 mg IV Q8H PRN PRN PRN Reason: NAUSEA/VOMITING Pravastatin Sodium (Pravachol) 40 mg PO DAILY@2200 [facility] Senna/Docusate Sodium (Senokot-S, Cecilia-Colace) 2 tablet PO BID PRN PRN PRN Reason: Constipation Sodium Chloride () 10 - 40 ml IV UD PRN PRN Reason: SALINE FLUSH Tolterodine Tartrate (Detrol La) 2 mg PO DAILY [facility] Last Admin: 08/14/19 11:55 Dose: 2 mg Documented by: STROKE Vital Signs/Narrative: Vital Signs Temp Pulse Resp BP Pulse Ox 08/14/19 13:46 97.8 F 78 16 101/43 L 95 08/14/19 11:49 97.9 F 74 14 84/42 L 94 Medical Necessity - Tobacco Use Smoking Status: Never smoker Assessment/Plan All Active Problems Chest pain (Acute) 1. Chest pain - trop neg x 3, SR on monitor. Neg EKG, neg CXR. Stres test shows no evidence of ischemia however noted decreased LVEF and possible septal hypokinesis. Echo pending. Risk factors include HTN, HLD, DMt2, + family hx, obesity, exposure to secondhand smoke as child -continue aspirin + home BP meds. 2. HTN - lisinopril, hctz 3. HLD - pravastatin 4. DMt2 with morbid obesity - glipizide, SSI 5. Depression - prozac 6. Overactive bladder - detrol DVT ppx: DC planning: This patient was seen by Jatin Mathews PA-C under the supervision of Dr. Llody. <Trae Lloyd - Last Filed: 08/14/19 15:11> Subjective: still with midsternal chest pain. Concerned, as it seems to have started when she started phentermine Vitals/I&O's: Vital Signs Temp Pulse Resp BP Pulse Ox 36.6 C 78 16 101/43 L 95 08/14/19 13:46 08/14/19 13:46 08/14/19 13:46 08/14/19 13:46 08/14/19 13:46 Oxygen Delivery Method Room Air Weight: 97.1 kg Body Mass Index (BMI) 39.1 Finger Stick Blood Glucose 407 Intake and Output for Last 24 Hours 08/12/19 08/13/19 08/14/19 23:59 23:59 23:59 Intake Total 857.5 / 857.5 Balance 857.5 / 857.5 General: Alert, Cooperative HEENT: Atraumatic, Normocephalic Neck: No Nodes, Trachea Midline Lungs: Clear to auscultation, Normal air movement, No rhonchi, No wheeze, No rales Cardiovascular: Regular rate, Regular Rhythm, Normal S1, Normal S2, No murmurs Abdomen: Bowel Sounds Present, Soft, Non Tender, Non-Distended Extremities: No edema, No Calf Tenderness Psych/Mental Status: Normal Affect, Appropriate Laboratory Results 08/13/19 23:57: WBC 13.9 H, RBC 4.17 L, Hgb 12.9, Hct 38.7, MCV 92.8, MCH 30.9, MCHC 33.3, RDW Std Deviation 45.8 H, RDW Coeff of Kaushik 13.6, Plt Count 470 H, MPV 9.9, Immature Gran % (Auto) 0.300, Neut % (Auto) 61.5, Lymph % (Auto) 28.7, [place] % (Auto) 7.6, Eos % (Auto) 1.5, Baso % (Auto) 0.4, Absolute Neuts (auto) 8.5 H, Absolute Lymphs (auto) 3.98, Nucleated RBC % 0 08/13/19 23:57: Sodium 136, Potassium 4.2, Chloride 102, Carbon Dioxide 26.0, Anion Gap 8, BUN 20 H, Creatinine 0.83, Estim Creat Clear Calc 64.13, Est GFR (MDRD) Af Amer 93, Est GFR (MDRD) Non-Af 77, BUN/Creatinine Ratio 24.0 H, Glucose 154 H, Calcium 9.7, Troponin I < 0.015 08/14/19 03:06: Troponin I < 0.015 08/14/19 05:55: WBC 10.4, RBC 3.80 L, Hgb 11.6 L, Hct 35.2 L, MCV 92.6, MCH 30.5, MCHC 33.0, RDW Std Deviation 46.2 H, RDW Coeff of Kaushik 13.6, Plt Count 396, MPV 9.6, Immature Gran % (Auto) 0.300, Neut % (Auto) 57.6, Lymph % (Auto) 33.3, [place] % (Auto) 7.2, Eos % (Auto) 1.1, Baso % (Auto) 0.5, Absolute Neuts (auto) 6.0, Absolute Lymphs (auto) 3.45, Nucleated RBC % 0 08/14/19 05:55: Troponin I < 0.015, Triglycerides 68, Cholesterol 129, LDL C holesterol 54, VLDL Cholesterol 14, HDL Cholesterol 61 08/14/19 06:23: POC Glucose 108 08/14/19 11:58: POC Glucose 108 Current Medications Acetaminophen (Tylenol) 650 mg PO Q6H PRN PRN PRN Reason: Pain Score 1-10/Temp > 100.7 F Aspirin (Ecotrin) 81 mg PO DAILY@0800 [facility] Last Admin: 08/14/19 06:23 Dose: 81 mg Documented by: Fluoxetine HCl (Prozac) 20 mg PO DAILY [facility] Last Admin: 08/14/19 11:55 Dose: 20 mg Documented by: Glipizide (Glucotrol Xl) 10 mg PO DAILYCM [facility] Last Admin: 08/14/19 11:55 Dose: 10 mg Documented by: Glucagon () 1 mg IM .X1 PRN PRN Reason: Hypoglycemia Hydrochlorothiazide (Hctz) 25 mg PO DAILY [facility] Last Admin: 08/14/19 11:53 Dose: Not Given Documented by: Sodium Chloride () 250 mls @ 15 mls/hr IV .[id number] PRN PRN Reason: Saline Flush Sodium Chloride () 250 mls @ 15 mls/hr IV .[id number] PRN PRN Reason: Additional IVPB Infusion Dextrose (Dextrose 10%-Water) 250 mls @ 999 mls/hr IV .Q16M PRN; Protocol PRN Reason: HYPOGLYCEMIA Insulin Human Lispro (Humalog Kwikpen (Bkc)) 0 unit SC Q6 [facility]; Protocol Last Admin: 08/14/19 11:59 Dose: Not Given Documented by: Lisinopril (Zestril) 40 mg PO DAILY [facility] Last Admin: 08/14/19 06:23 Dose: 40 mg Documented by: Melatonin (Melatonin) 3 mg PO QHS PRN PRN PRN Reason: INSOMNIA Morphine Sulfate () 2 mg IV Q3H PRN PRN PRN Reason: Pain Score 6-10/10 Ondansetron HCl (Zofran) 4 mg IV Q8H PRN PRN PRN Reason: NAUSEA/VOMITING Pravastatin Sodium (Pravachol) 40 mg PO DAILY@2200 [facility] Senna/Docusate Sodium (Senokot-S, Cecilia-Colace) 2 tablet PO BID PRN PRN PRN Reason: Constipation Sodium Chloride () 10 - 40 ml IV UD PRN PRN Reason: SALINE FLUSH Tolterodine Tartrate (Detrol La) 2 mg PO DAILY [facility] Last Admin: 08/14/19 11:55 Dose: 2 mg Documented by: STROKE Vital Signs/Narrative: Vital Signs Temp Pulse Resp BP Pulse Ox 08/14/19 13:46 36.6 C 78 16 101/43 L 95 08/14/19 11:49 36.6 C 74 14 84/42 L 94 Assessment/Plan Patient seen and examined independently. Data reviewed. I agree with the above note by the physician credit control assistant. 1. chest pain: atypical. stress normal, but low EF. Will check echo to see if may be an error. Suspect GI. Code Visit OBSV E&M: 36146 Subsequent observation care L2
--- NOTE | 2019-08-14 17:15 | DCINST_ITS ---
- Discharge Diagnoses Current Active Problems: Current Active and Chronic Problems Chest pain (Acute) You will use the following diet at home:: Calorie/Carbohydrate Controlled (specify 1200, 1400, etc) - 1800 sean / day, Cardiac Your food should be the consistency of: Regular Your liquids should be the consistency of: Regular/Thin Discharge Activity: Return to Normal Activity Call your doctor if you observe: Chest pain Allergies/Adverse Reactions: Allergies No Known Allergies Allergy (Verified 08/13/19 23:18) Medications to take at Discharge Fluoxetine [Prozac] 20 mg PO DAILY 03/17/16 Hydrochlorothiazide [Hctz] 25 mg PO DAILY 03/17/16 Lisinopril [Zestril] 40 mg PO DAILY 03/17/16 Oxybutynin Chloride [Ditropan Xl] 10 mg PO DAILY 03/17/16 Pravastatin [Pravachol] 40 mg PO DAILY 03/17/16 metFORMIN HCl [Glucophage] 1,000 mg PO BID 03/17/16 Glipizide [Glipizide ER] 10 mg PO DAILY 12/11/18 Phentermine HCl 15 mg PO DAILY 08/14/19 Semaglutide [Ozempic] 1 mg SQ QWEEK 08/14/19 Primary Care Physician: Sourav Forbes MD [Primary Care Provider] - Please follow up with your Primary Care Physician in: 1-2 weeks Test Results: Test results from this visit will be discussed in further detail at your follow- up appointment, if applicable. Proposed Discharge Date: 08/14/19
--- NOTE | 2019-08-14 17:18 | DS.PCM_ITS ---
Discharge Date and Diagnosis - Problem List Patient Problems: Active and Suspected Problems Chest pain (Acute) Date of Admission: 08/14/19 Date of Discharge: 08/14/19 - Primary Discharge Diagnosis Active and Suspected Problems Chest pain (Acute), musculoskeletal HTN HLD DMt2 with morbid obesity - Secondary Discharge Diagnosis Chronic Problems High cholesterol (Chronic) Obesity (Chronic) HTN (hypertension), benign (Chronic) DM type 2 (diabetes mellitus, type 2) (Chronic) Hospital Course and Treatment Imaging Results: DIAGNOSTICS Stress test: Impression: 1. There is no evidence of ischemia or infarction. 2. Estimated ejection fraction is 46%. Consider 2D echo for correlation. 08/14/19 11:19 Echo Complete W/ Contrast [ECHO] Routine Interpretation Summary The estimated ejection fraction is 55 %. Normal diastology for age. RAD/Chest 1 View (Portable) IMPRESSION: Normal x-ray examination of the chest. Operations: None Procedures: 2-D Echocardiogram, Stress test Summary of Care Provided: Hospital Course: The patient is a 49 year old F with pmhx of HTN, HLD, DMt2, obesity who presented to the ER with c/o chest pain. This was described as a substernal sharp pain occurring right as she sat down to start eating goulash. She took several bites and the pain became worse. She described it as heartburn. It was worse sitting back. In the ER, troponin was negative, CXR was negative, and EKG was negative. She was admitted for CP workup. No events on tele. Trop neg x 3. Stress test the following morning showed no ischemia, however it showed EF of 46% and possible septal hypokinesis possibly artifact, and an echo was suggested. This was obtained and was unremarkable. I recommended the patient follow up with her PCP in 1-2 weeks. I recommended that she try over the counter omeprazole if the symptoms return. This may be related to heartburn or musculoskeletal pain, it is unclear at this time. She was discharged home in stable condition. This patient was seen by Jatin Mathews PA-C under the supervision of Dr. Lloyd. [] Patient Problems: Active and Suspected Problems Chest pain (Acute) - Physical Exam Vitals/I&O's: Vital Signs Temp Pulse Resp BP Pulse Ox 97.8 F 85 16 101/43 L 95 08/14/19 13:46 08/14/19 15:00 08/14/19 13:46 08/14/19 13:46 08/14/19 13:46 Oxygen Delivery Method Room Air Weight: 214 lb 1.102 oz Body Mass Index (BMI) 39.1 Finger Stick Blood Glucose 407 Intake and Output for Last 24 Hours 08/12/19 08/13/19 08/14/19 23:59 23:59 23:59 Intake Total 857.5 / 857.5 Balance 857.5 / 857.5 General: Alert, Oriented x3, Cooperative HEENT: Atraumatic, PERRLA, EOMI, Normocephalic Neck: Supple, No JVD, Negative Carotid Bruits Lungs: Clear to auscultation, Normal air movement Cardiovascular: Regular rate, No murmurs Abdomen: Bowel Sounds Present, Soft, Non Tender, Obese Extremities: No edema, Capillary Refill Less than 3 Seconds Skin: No rashes, No breakdown Musculoskeletal: No Tenderness to Palpation of Joints or Extremities Neurological: Cranial nerves II-XII grossly intact Psych/Mental Status: Normal Affect, Appropriate Laboratory Results 08/13/19 23:57: WBC 13.9 H, RBC 4.17 L, Hgb 12.9, Hct 38.7, MCV 92.8, MCH 30.9, MCHC 33.3, RDW Std Deviation 45.8 H, RDW Coeff of Kaushik 13.6, Plt Count 470 H, MPV 9.9, Immature Gran % (Auto) 0.300, Neut % (Auto) 61.5, Lymph % (Auto) 28.7, [place] % (Auto) 7.6, Eos % (Auto) 1.5, Baso % (Auto) 0.4, Absolute Neuts (auto) 8.5 H, Absolute Lymphs (auto) 3.98, Nucleated RBC % 0 08/13/19 23:57: Sodium 136, Potassium 4.2, Chloride 102, Carbon Dioxide 26.0, Anion Gap 8, BUN 20 H, Creatinine 0.83, Estim Creat Clear Calc 64.13, Est GFR (MDRD) Af Amer 93, Est GFR (MDRD) Non-Af 77, BUN/Creatinine Ratio 24.0 H, Glucose 154 H, Calcium 9.7, Troponin I < 0.015 08/14/19 03:06: Troponin I < 0.015 08/14/19 05:55: WBC 10.4, RBC 3.80 L, Hgb 11.6 L, Hct 35.2 L, MCV 92.6, MCH 30.5, MCHC 33.0, RDW Std Deviation 46.2 H, RDW Coeff of Kaushik 13.6, Plt Count 396, MPV 9.6, Immature Gran % (Auto) 0.300, Neut % (Auto) 57.6, Lymph % (Auto) 33.3, [place] % (Auto) 7.2, Eos % (Auto) 1.1, Baso % (Auto) 0.5, Absolute Neuts (auto) 6.0, Absolute Lymphs (auto) 3.45, Nucleated RBC % 0 08/14/19 05:55: Troponin I < 0.015, Triglycerides 68, Cholesterol 129, LDL Cholesterol 54, VLDL Cholesterol 14, HDL Cholesterol 61 08/14/19 06:23: POC Glucose 108 08/14/19 11:58: POC Glucose 108 Current Medications Acetaminophen (Tylenol) 650 mg PO Q6H PRN PRN PRN Reason: Pain Score 1-10/Temp > 100.7 F Aspirin (Ecotrin) 81 mg PO DAILY@0800 [facility] Last Admin: 08/14/19 06:23 Dose: 81 mg Documented by: Fluoxetine HCl (Prozac) 20 mg PO DAILY [facility] Last Admin: 08/14/19 11:55 Dose: 20 mg Documented by: Glipizide (Glucotrol Xl) 10 mg PO DAILYCM [facility] Last Admin: 08/14/19 11:55 Dose: 10 mg Documented by: Glucagon () 1 mg IM .X1 PRN PRN Reason: Hypoglycemia Hydrochlorothiazide (Hctz) 25 mg PO DAILY [facility] Last Admin: 08/14/19 11:53 Dose: Not Given Documented by: Sodium Chloride () 250 mls @ 15 mls/hr IV .[id number] PRN PRN Reason: Saline Flush Sodium Chloride () 250 mls @ 15 mls/hr IV .[id number] PRN PRN Reason: Additional IVPB Infusion Dextrose (Dextrose 10%-Water) 250 mls @ 999 mls/hr IV .Q16M PRN; Protocol PRN Reason: HYPOGLYCEMIA Insulin Human Lispro (Humalog Kelseypen (Bkc)) 0 unit SC Q6 [facility]; Protocol Last Admin: 08/14/19 11:59 Dose: Not Given Documented by: Lisinopril (Zestril) 40 mg PO DAILY [facility] Last Admin: 08/14/19 06:23 Dose: 40 mg Documented by: Melatonin (Melatonin) 3 mg PO QHS PRN PRN PRN Reason: INSOMNIA Morphine Sulfate () 2 mg IV Q3H PRN PRN PRN Reason: Pain Score 6-10/10 Ondansetron HCl (Zofran) 4 mg IV Q8H PRN PRN PRN Reason: NAUSEA/VOMITING Pravastatin Sodium (Pravachol) 40 mg PO DAILY@2200 [facility] Senna/Docusate Sodium (Senokot-S, Cecilia-Colace) 2 tablet PO BID PRN PRN PRN Reason: Constipation Sodium Chloride () 10 - 40 ml IV UD PRN PRN Reason: SALINE FLUSH Tolterodine Tartrate (Detrol La) 2 mg PO DAILY [facility] Last Admin: 08/14/19 11:55 Dose: 2 mg Documented by: Discharge Diet: Low fat/ Low Cholesterol, 1800 Calorie Control Diet, 2000 mg Sodium Diet Discharge Activity: Return to Normal Activity Call your doctor if you observe: Chest pain Home Medications: Medications to take at Discharge Fluoxetine [Prozac] 20 mg PO DAILY 03/17/16 Hydrochlorothiazide [Hctz] 25 mg PO DAILY 03/17/16 Lisinopril [Zestril] 40 mg PO DAILY 03/17/16 Oxybutynin Chloride [Ditropan Xl] 10 mg PO DAILY 03/17/16 Pravastatin [Pravachol] 40 mg PO DAILY 03/17/16 metFORMIN HCl [Glucophage] 1,000 mg PO BID 03/17/16 Glipizide [Glipizide ER] 10 mg PO DAILY 12/11/18 Phentermine HCl 15 mg PO DAILY 08/14/19 Semaglutide [Ozempic] 1 mg SQ QWEEK 08/14/19 Primary Care Physician: Sourav Forbes MD [Primary Care Provider] - Please follow up with your Primary Care Physician in: 1-2 weeks Disposition: Home Minutes spent on discharge:: 35 Patient Condition:: Stable Medical Necessity - Tobacco Use Smoking Status: Never smoker Meaningful Use Info Meaningful Use Diagnoses (Choose all that apply): None applicable
== END 2019-08-14 17:16 | disposition home or self-care (01) ==
LOC: ED 08-14 00:52 → PCU 08-14 01:42
PROVIDERS: Admitting Provider Hospitalist; Emergency Provider Emergency Medicine; PCP Internal Medicine
DX: R07.89 Other chest pain (principal); I10 Essential (primary) hypertension; E66.9 Obesity, unspecified; E11.65 Type 2 diabetes mellitus with hyperglycemia; M19.90 Unspecified osteoarthritis, unspecified site; E78.5 Hyperlipidemia, unspecified; F32.9 Major depressive disorder, single episode, unspecified; N32.81 Overactive bladder; E66.01 Morbid (severe) obesity due to excess calories; Z68.39 Body mass index [BMI] 39.0-39.9, adult; Z71.3 Dietary counseling and surveillance; Z79.899 Other long term (current) drug therapy; Z79.84 Long term (current) use of oral hypoglycemic drugs
CPT/HCPCS: 36415; 71045; 78452; 80048; 80061; 82962; 84484; 85025; 93005; 93017; 93306; 96361; 96374; 96375; 99218; 99285; A9500; J7030; J7040; Q9957; A4216; C8929; G0378; J2405; J2785

== ENCOUNTER → 2019-12-31 | Outpatient (CLI) | payer MEDICARE, SELFPAY ==
[2019-08-14 01:55] VITALS: BMI 39.1
== END | disposition home or self-care (01) ==
LOC: LABSPEC 17:39
PROVIDERS: PCP Internal Medicine; Referring Provider Internal Medicine; Visit Provider Internal Medicine
DX: R11.2 Nausea with vomiting, unspecified (principal); R43.2 Parageusia
CPT/HCPCS: 87635; G2023; U0003

== ENCOUNTER 2020-02-03 01:07 | Emergency (ER) | payer MEDICARE, SELFPAY ==
[2020-01-28 09:05] VITALS: BMI 39.1
[2020-02-03 01:10] VITALS: BP 132/84; PULSE 110; RESP 16; TEMP 36.6; O2SAT 94; BMI 36.8
[2020-02-03 01:16] LABS: Bedside Glucose > 500 mg/dL (70-110)
--- NOTE | 2020-02-03 01:37 | ED.VIS.GEN ---
History of Present Illness Chief Complaint: Hyperglycemia Informant: Patient Onset: Today - Last several hours Context: Gradual Onset Timing: Continuous Quality: Sweaty Location: All over Current Severity: Mild Maximum Severity: Moderate Worsened by: Unknown Relieved by: Nothing Associated Symptoms: None acutely Narrative: Patient states she checked her blood sugar and it was 574 at home, hence coming to the hospital. She felt sweaty and thought maybe it was going to be low as a result. In the past month or so, she lost her sense of smell and taste. She was tested for COVID-19 as a result and it was negative. She has had a hard time eating, but states today she ate some potato sticks as well as Jell-O and orange sherbet and suspects maybe that is why her blood sugar is high. She denies any recent illness symptoms otherwise. She has had urinary frequency but that is not new, she states she has an overactive bladder and she drinks a lot of water each day. She is compliant with her medications, which includes metformin for diabetes, she is not on insulin. - Past Medical History (1) DM type 2 (diabetes mellitus, type 2) Status: Chronic (2) HTN (hypertension), benign Status: Chronic (3) High cholesterol Status: Chronic Past Medical History - Allergies and Home Meds Allergies/Adverse Reactions: Allergies No Known Allergies Allergy (Verified 02/03/20 01:12) Primary Care Physician: Sourav Forbes MD [Primary Care Provider] - Surgical History: tonsillectomy, - Smoking Status: Never smoker - Family History Maternal Family History: Family History (Last Updated 01/28/20 @ 08:58 by Tavia Mccoy) Mother Hypertension Heart disease Family History: Reports: Heart Disease Paternal Family History: Family History (Last Updated 01/28/20 @ 08:58 by Tavia Mccoy) Mother Hypertension Heart disease Family History: Reports: Pulmonary Disease, - Review of Systems General: Reports: Malaise, Sweats. Denies: Chills, Fever Eyes: Denies: Visual changes - bilaterally, Diplopia ENT: Denies: Rhinorrhea, Sore throat Cardiovascular: Denies: Chest pain, Palpitations Respiratory: Denies: Dyspnea, Cough, Dyspnea on exertion Gastrointestinal: Denies: Abdominal pain, Nausea, Vomiting, Diarrhea, Melena, Hematochezia Genitourinary: Reports: Frequency. Denies: Dysuria, Hematuria Musculoskeletal: Denies: Back pain, Swelling, Extremity Pain Skin: Denies: Rash, Wounds Neurological: Denies: Headache, Weakness, Numbness Physical Exam Vital Signs/Narrative: Vital Signs Temp Pulse Resp BP Pulse Ox 02/03/20 01:10 97.9 F 110 H 16 132/84 H 94 Inital Vital Signs reviewed: Yes General: Well nourished, Well developed, Obese, No Acute Distress Head: Normocephalic, Atraumatic Eyes: Perrl, EOMI ENT: Moist mucous membranes, No rhinorrhea Neck: Supple, Nontender Cardiovascular: Regular rate, Regular rhythm, No murmurs, Tachycardia Respiratory: No distress, CTA bilaterally, Chest nontender Abdomen: Soft, Nontender, Nondistended, Normal bowel sounds Back: Nontender, Normal Inspection Extremities: Nontender, No edema. Negative for: Calf Tenderness Skin: Normal color, No rash, No Trauma Neurological: Alert, Oriented x3, Cranial nerves II-XII grossly intact, Normal Strength, Normal Sensation, Normal Gait Psychological: Normal affect, Normal Mood Diagnostic/Tx/Re-eval Laboratory Tests 02/03/20 02/03/20 02/03/20 Range/Units 01:50 01:45 01:45 WBC 12.2 H (4.4-11.0) K/mm3 RBC 4.68 (4.2-5.4) M/mm3 Hgb 14.2 (12.0-15.0) g/dL Hct 43.1 (37-47) % MCV 92.1 (81-99) fL MCH 30.3 (27.0-32.0) pg MCHC 32.9 (32-36) g/dL RDW Std Deviation 44.6 H (35.1-43.9) fl RDW Coeff of Kaushik 13.2 (11.6-14.6) % Plt Count 300 (150-450) K/mm3 MPV 11.7 (6.2-12.0) fl Immature Gran % (Auto) 0.300 (0.0-0.9) % Neut % (Auto) 65.4 (47-70) % Lymph % (Auto) 24.1 (19-41) % [place] % (Auto) 9.2 (0-10) % Eos % (Auto) 0.6 (0-5) % Baso % (Auto) 0.4 (0-1) % Absolute Neuts (auto) 8.0 H (2.0-7.7) X10^3/uL Absolute Lymphs (auto) 2.94 (0.83-4.51) X10^3/uL Nucleated RBC % 0 (0-5) % Differential Comment SCANNED Sodium 128 L (136-145) mmol/L Potassium 4.4 (3.5-5.1) mmol/L Chloride 93 L (98-107) mmol/L Carbon Dioxide 24.0 (21.0-32.0) mmol/L Anion Gap 11 (5-15) BUN 7 (7-18) mg/dL Creatinine 1.14 H (0.55-1.02) mg/dL Estim Creat Clear Calc 46.69 ml/min Est GFR (MDRD) Af Amer 65 (>60) mL/min Est GFR (MDRD) Non-Af 53 L (>60) mL/min BUN/Creatinine Ratio 6.1 L (10-20) RATIO Glucose 646 H* (74-106) mg/dL Calcium 10.4 H (8.5-10.1) mg/dL Urine Color Yellow (Yellow) Urine Clarity Clear (Clear) Urine pH 6.0 (5.0 - 8.0) Ur Specific [place] 1.010 (1.002-1.030) Urine Protein Negative (Negative) mg/dl Urine Glucose (UA) 1000 H (Normal) mg/dl Urine Ketones 5 H (Negative) mg/dl Urine Occult Blood Negative (Negative) /ul Urine Nitrite Negative (Negative) Urine Bilirubin Negative (Negative) mg/dL Urine Urobilinogen Normal (Normal) mg/dl Ur Leukocyte Esterase 25 H (Negative) /ul Urine RBC 0 SEEN (0-5) /hpf Urine WBC 0-5 SEEN (0-5) /hpf Ur Squamous Epith Cells 5-10 SEEN (5-10) /hpf Urine Bacteria 0 SEEN (None Seen) /hpf Urine Mucus 0 SEEN (<or=2+) /hpf POC Glucose (70-110) mg/dL 02/03/20 Range/Units 01:11 WBC (4.4-11.0) K/mm3 RBC (4.2-5.4) M/mm3 Hgb (12.0-15.0) g/dL Hct (37-47) % MCV (81-99) fL MCH (27.0-32.0) pg MCHC (32-36) g/dL RDW Std Deviation (35.1-43.9) fl RDW Coeff of Kaushik (11.6-14.6) % Plt Count (150-450) K/mm3 MPV (6.2-12.0) fl Immature Gran % (Auto) (0.0-0.9) % Neut % (Auto) (47-70) % Lymph % (Auto) (19-41) % [place] % (Auto) (0-10) % Eos % (Auto) (0-5) % Baso % (Auto) (0-1) % Absolute Neuts (auto) (2.0-7.7) X10^3/uL Absolute Lymphs (auto) (0.83-4.51) X10^3/uL Nucleated RBC % (0-5) % Differential Comment Sodium (136-145) mmol/L Potassium (3.5-5.1) mmol/L Chloride (98-107) mmol/L Carbon Dioxide (21.0-32.0) mmol/L Anion Gap (5-15) BUN (7-18) mg/dL Creatinine (0.55-1.02) mg/dL Estim Creat Clear Calc ml/min Est GFR (MDRD) Af Amer (>60) mL/min Est GFR (MDRD) Non-Af (>60) mL/min BUN/Creatinine Ratio (10-20) RATIO Glucose (74-106) mg/dL Calcium (8.5-10.1) mg/dL Urine Color (Yellow) Urine Clarity (Clear) Urine pH (5.0 - 8.0) Ur Specific [place] (1.002-1.030) Urine Protein (Negative) mg/dl Urine Glucose (UA) (Normal) mg/dl Urine Ketones (Negative) mg/dl Urine Occult Blood (Negative) /ul Urine Nitrite (Negative) Urine Bilirubin (Negative) mg/dL Urine Urobilinogen (Normal) mg/dl Ur Leukocyte Esterase (Negative) /ul Urine RBC (0-5) /hpf Urine WBC (0-5) /hpf Ur Squamous Epith Cells (5-10) /hpf Urine Bacteria (None Seen) /hpf Urine Mucus (<or=2+) /hpf POC Glucose > 500 H* (70-110) mg/dL - Medical Decision Making Labs show glucose in the 620s. With 14 units of lispro, we were able to get her down to the 300s. She feels better. Urine shows no infection. She does have mildly elevated calcium at 10.4. This will need to be reevaluated as an outpatient. Advised to follow-up, she is comfortable with that plan and does feel better. Of note, we were not able to get an IV on her easily, or to give her IV fluids as a result of that, but she is well-hydrated and able to drink. ED Disposition - Plan for ED Patient: Disposition: Home or Assisted Living Diagnosis: Hyperglycemia, DM type 2 (diabetes mellitus, type 2), Hypercalcemia Instructions: ED Diabetic Hyperglycemia, ED DIET Diabetic Referrals: Sourav Forbes MD [Primary Care Provider] - 3-5 Days
[2020-02-03] MEDS: Insulin Lispro 100 UNIT/ML INSULN.PEN 14 UNIT SC (01:47)
[2020-02-03 01:57] LABS: Bacteria 0 SEEN /hpf (None Seen); Mucous, Urine 0 SEEN /hpf (<or=2+); Red Blood Cells-Urine 0 SEEN /hpf (0-5)
[2020-02-03 01:59] LABS: Absolute Lymphocyte Count 2.94 X10^3/uL (0.83-4.51); Basophil# 0.05 X10^3/uL; Basophil% 0.4 % (0-1); Eosinophil# 0.07 X10^3/uL; Eosinophils% 0.6 % (0-5); Hematocrit 43.1 % (37-47); Hemoglobin 14.2 g/dL (12.0-15.0); Lymphocyte # 2.94 X10^3/ul (4.0); Lymphocyte % 24.1 % (19-41); Mean Corp Hgb Conc 32.9 g/dL (32-36); Mean Corpuscular Hgb 30.3 pg (27.0-32.0); Mean Corpuscular Volume 92.1 fL (81-99); Mean Platelet Vol. 11.7 fl (6.2-12.0); Monocyte# 1.12 X10^3/uL; Monocyte% 9.2 % (0-10); NRBC Flagged by Analyzer 0 % (0-5); Neutrophil # 7.97 X10^3/uL (2.7-7.7); Neutrophil % 65.4 % (47-70); POSITIVE COUNT YES; Platelet Count 300 K/mm3 (150-450); RBC Distribution Width CV 13.2 % (11.6-14.6); RBC Distribution Width SD 44.6 fl (35.1-43.9); Red Blood Count 4.68 M/mm3 (4.2-5.4); White Blood Count 12.2 K/mm3 (4.4-11.0)
[2020-02-03 01:59] LABS: Color, Urine Yellow (Yellow); Glucose, Dipstick 1000 mg/dl (Normal); Ketone-Dipstick 5 mg/dl (Negative); Leukocyte Esterase-Dipstick 25 /ul (Negative); Nitrite-Dipstick Negative (Negative); Occult Blood-Urine Negative /ul (Negative); Protein-Dipstick Negative (Negative); Urine Bilirubin Dipstick Negative (Negative); Urine Clarity Clear (Clear); Urine Urobilinogen Normal (Normal)
[2020-02-03 02:02] LABS: Differential Indicated SCAN CRITERIA MET
[2020-02-03 02:11] LABS: Squamous Epithelial Cells - UA 5-10 SEEN /hpf (5-10); White Blood Cells 0-5 SEEN /hpf (0-5)
[2020-02-03 02:18] LABS: Differential Comment SCANNED
[2020-02-03 02:27] LABS: Anion Gap 11 (5-15); BUN 7 mg/dL (7-18); BUN/Creat Ratio 6.1 RATIO (10-20); Calcium,Total 10.4 mg/dL (8.5-10.1); Chloride 93 mmol/L (98-107); Creatinine, Serum 1.14 mg/dL (0.55-1.02); EST Glomerular Filtration Rate 53 mL/min (>60); Est Glom Filt Rate - Afr Amer 65 mL/min (>60); Estimated Creatinine Clearance 46.69 ml/min; Glucose 646 mg/dL (74-106); Potassium 4.4 mmol/L (3.5-5.1); Sodium Level 128 mmol/L (136-145)
[2020-02-03 03:26] LABS: Bedside Glucose 326 mg/dL (70-110)
[2020-02-03 03:54] VITALS: BP 159/89; PULSE 110; RESP 18; O2SAT 100
== END 2020-02-03 03:54 | disposition home or self-care (01) ==
PROVIDERS: Emergency Provider Emergency Medicine; PCP Internal Medicine
DX: E11.65 Type 2 diabetes mellitus with hyperglycemia (principal); E83.52 Hypercalcemia; E66.9 Obesity, unspecified; I10 Essential (primary) hypertension; E78.00 Pure hypercholesterolemia, unspecified; Z79.84 Long term (current) use of oral hypoglycemic drugs; Z79.899 Other long term (current) drug therapy
CPT/HCPCS: 80048; 81001; 82962; 85025; 96372; 99283; J7040; A4216

== ENCOUNTER → 2020-02-19 13:00 | Outpatient (CLI) | payer MEDICARE, SELFPAY ==
--- NOTE | 2020-01-28 09:19 | HP_ITS ---
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 Accompanied by: Is patient in pain?: No Allergies No Known Allergies Allergy (Verified 01/28/20 09:00) Medications Fluoxetine [Prozac] 20 mg PO DAILY 03/17/16 [History Confirmed 01/28/20] Hydrochlorothiazide [Hctz] 25 mg PO DAILY 03/17/16 [History Confirmed 01/28/20] Lisinopril [Zestril] 40 mg PO DAILY 03/17/16 [History Confirmed 01/28/20] Oxybutynin Chloride [Ditropan Xl] 10 mg PO DAILY 03/17/16 [History Confirmed 01/28/20] Pravastatin [Pravachol] 40 mg PO DAILY 03/17/16 [History Confirmed 01/28/20] metFORMIN HCl [Glucophage] 1,000 mg PO BID 03/17/16 [History Confirmed 01/28/20] Glipizide [Glipizide ER] 10 mg PO DAILY 12/11/18 [History Confirmed 01/28/20] Semaglutide [Ozempic] 1 mg SQ QWEEK 08/14/19 [History Confirmed 01/28/20] acetaminophen 325 mg capsule 325 mg PO Q4H PRN cap 01/28/20 [History Confirmed 01/28/20] aspirin 81 mg tablet,delayed release 81 mg PO DAILY 01/28/20 [History Confirmed 01/28/20] sucralfate 1 gram tablet 1 g PO QACHS #100 tab 01/28/20 [Rx Confirmed 01/28/20] PFSH Medical History High cholesterol (Chronic) Obesity (Chronic) HTN (hypertension), benign (Chronic) DM type 2 (diabetes mellitus, type 2) (Chronic) Chest pain (Acute) Arthritis (Acute) Biliary dyskinesia (Acute) Depression (Acute) Sleep apnea (Acute) Surgical History (Updated 01/28/20 @ 08:58 by Tavia Mccoy) No history of previous surgery (Acute) Family History (Updated 01/28/20 @ 08:58 by Tavia Mccoy) Mother Hypertension Heart disease Social History (Updated 01/28/20 @ 09:[address] Angel Mittal MD) Smoking Status: Never smoker alcohol intake: never substance use type: does not use HPI HPI HPI: DAYAMI MONTES, is a 49 F who presents to the office today for HPI HPI Surgical H&P: Yes HPI: DAYAMI MONTES, is a 49 F who presents to the office today for Epigastric pain and right upper quadrant pain. The patient has been having epigastric and right upper quadrant pain for some time now. She does say that she vomited once. She is not having any melena or blood in her stool. She describes the pain as aching and it happens whenever she eats certain foods. She says she is able to tolerate ice cream well but she is not able to eat Posta. She says this usually happens when she eats. ROS General General: Yes weight change; no appetite, fatigue, colon cancer, breast cancer or weakness HEENT HEENT: No difficulty swallowing, eye injury, eye surgery, swollen glands or hoarseness Endo Endocrine: Yes diabetes mellitus; no thyroid disease, thyroid cancer, Hair loss, heat intolerance or cold intolerance Skin Skin: No rash or changing moles Breast Breast: No left breast lump, right breast lump, nipple discharge, breast pain, abnormal mammogram, abnormal US or breast enlargement Musc Musculoskeletal: Yes arthritis; no back problems, rheumatoid arthritis, gout or joint pain Cardio Cardiovascular: Yes high blood pressure; no murmur, pacemaker, heart disease, atrial fibrillation, heart attack, heart stent, palpitations, shortness of breat with exertion or chest pain Psych Psychiatric: Yes depression; no anxiety or hearing voices Resp Respiratory: No shortness of breath, Yes sleep apnea, No cough, No COPD, No asthma, No emphysema, No wheezing Gastro Gastrointestinal: Yes abdominal pain, No nausea or vomiting, No diarrhea, No constipation, No blood in stool, No acid reflux, No hemorrhoids, No ulcers, Yes gallbladder problem, No black,tarry stools Johnathon Hematologic: No blood thinners, No blood disorders, No bleeding, No anemia, No blood clots Neuro Neurologic: No system reviewed and no additional complaints, except as docu, No as per HPI, No abnormal walking, No abnormal hearing, No abnormal movements, No abnormal speech, No behavioral changes, No burning sensations, No confusion, No seizure-like activity, No unsteadiness, No dizziness, No localized weakness, No frequent falls, No headache(s), No lack of coordination, No loss of vision, No memory loss, No numbness, No other visual disturbances, No radiating pain, No restless legs, No sensory deficit, No fainting, No tingling, No tremor(s), No weakness, No other Exam Const General: cooperative Orientation: alert, oriented x3 Chest Breast Palpation: No nipple discharge Resp Effort & Inspection: normal respiratory effort Auscultation: clear to auscultation bilaterally Cardio Rate: regular rate Rhythm: regular rhythm Heart Sounds: no murmurs GI Inspection: non-distended Palpation: soft, tender in the epigastrum and in the RUQ Assessment & Plan Problems 1. Screen for colon cancer Z12.11 2. Epigastric pain R10.13 3. Abnormal biliary HIDA scan R94.8 Plan The patient is having epigastric and right upper quadrant pain. It is that her tolerated diet includes ice cream but she is unable to tolerate Posta. The symptoms more point toward gastritis and peptic ulcer disease. The patient says that when she tried a PPI she felt very nauseous and stopped it and the nausea went away when she stopped her PPI. I recommend performing an EGD before performing laparoscopic cholecystectomy. The patient had an ultrasound which did not show any stones and she had a HIDA scan which showed an ejection fraction of 22%. If EGD is normal I will proceed with laparoscopic cholecystectomy. I also prescribed the patient some Carafate to try in the interim before her scopes could be performed. Patient has never had screening colonoscopy. Recommend perform a colonoscopy at the same time as EGD. I explained endoscopy in detail to the patient. I explained the risks including but not limited to stroke or heart attack with anesthesia, perforation of the GI tract, bleeding, infection. I explained that any of these could necessitate further emergency surgery. The patient understands and all questions were answered sufficiently. The patient wishes to proceed with procedure. We discussed the current risks associated with COVID-19. While it is understood that there is a community spread of COVID-19, the risk of diana COVID-19 while at [facility] ([facility] is very low; however, the risk cannot be completely mitigated because of the community spread of the disease. We discussed in detail the risk of exposure to and/or potential harm posed by the COVID-19 virus with having a surgery/procedure at this time versus the risk of delaying the surgery/procedure. It is not possible to know either the risk of delaying the surgery or procedure or chance of getting an infection with perfect accuracy, but a joint decision was made to proceed at this time with the scheduled surgery/procedure as indicated on the consent form. Patient was notified that we will need to comply with any screening or testing [facility] wishes to perform or that surgery may be delayed for any positive results. Angel Mittal MD Pager: [facility] [address] [place] [address], [address] [place] [address] Office: Orders Orders: Colonoscopy Today Z12.11 EGD Today R10.13 Medications New: sucralfate (Carafate) 1 g PO QACHS 100 tabs 0RF Coding Level of Care Code Off vis,new,level 4 Diagnoses Screen for colon cancer Z12.11 Epigastric pain R10.13 Abnormal biliary HIDA scan R94.8 Time Spent (min) 45 01/28/20 0919 <Electronically signed by Angel box MD> Date _ Angel Mittal MD
[2020-02-13 09:16] VITALS: BMI 35.5
--- NOTE | 2020-02-20 10:15 | EKG12_ITS ---
Test Reason : PRE-OP Blood Pressure : / mmHG Vent. Rate : 077 BPM Atrial Rate : 077 BPM P-R Int : 156 ms QRS Dur : 088 ms QT Int : 398 ms P-R-T Axes : 021 050 039 degrees QTc Int : 450 ms Normal sinus rhythm Normal ECG Confirmed by KARYN COLORADO, SANDRA ([id number]), news copy editor AMARILIS GEORGE ([id number]) on 02/23/2020 1:57:34 PM Referred By: Angel Mittal Confirmed By:SANDRA BOSS MD
[2020-02-20 10:35] LABS: Prothrombin Time (Protime)PT. 12.5 SECONDS (11.7-14.9)
[2020-02-20 10:36] LABS: Partial Thromboplast Time 25.8 Seconds (24.1-36.2)
[2020-02-20 11:04] LABS: AST(SGOT) 17 U/L (15-37); Alanine Aminotransfer ALT/SGPT 34 U/L (13-56); Albumin, Serum 3.4 g/dL (3.2-5.0); Alkaline Phosphatase 67 U/L (45-117); Anion Gap 4 (5-15); BUN 10 mg/dL (7-18); BUN/Creat Ratio 19.1 RATIO (10-20); Bilirubin, Direct 0.12 mg/dL (0.00-0.30); Calcium,Total 9.3 mg/dL (8.5-10.1); Chloride 101 mmol/L (98-107); Creatinine, Serum 0.52 mg/dL (0.55-1.02); EST Glomerular Filtration Rate 131 mL/min (>60); Est Glom Filt Rate - Afr Amer 159 mL/min (>60); Globulin 3.4 g/dL (2.2-4.2); Glucose 308 mg/dL (74-106); Protein, Total 6.8 g/dL (6.4-8.2); Sodium Level 132 mmol/L (136-145)
[2020-02-20 11:06] LABS: Hemoglobin A1c 12.4 % (3.8-5.6)
== END ==
LOC: PAT 03-26 13:12
PROVIDERS: Anesthesiology; PCP Internal Medicine; Referring Provider Surgery; Visit Provider Surgery
DX: Z01.818 Encounter for other preprocedural examination (principal); Z11.59 Encounter for screening for other viral diseases
CPT/HCPCS: 36415; 80048; 80076; 83036; 85610; 85730; 93005; 94799

== ENCOUNTER → 2020-02-20 10:40 | Outpatient (CLI) | payer MEDICARE, SELFPAY ==
[2020-01-28 09:05] VITALS: BMI 39.1
--- NOTE | 2020-01-28 09:19 | HP_ITS ---
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 Accompanied by: Is patient in pain?: No Allergies No Known Allergies Allergy (Verified 01/28/20 09:00) Medications Fluoxetine [Prozac] 20 mg PO DAILY 03/17/16 [History Confirmed 01/28/20] Hydrochlorothiazide [Hctz] 25 mg PO DAILY 03/17/16 [History Confirmed 01/28/20] Lisinopril [Zestril] 40 mg PO DAILY 03/17/16 [History Confirmed 01/28/20] Oxybutynin Chloride [Ditropan Xl] 10 mg PO DAILY 03/17/16 [History Confirmed 01/28/20] Pravastatin [Pravachol] 40 mg PO DAILY 03/17/16 [History Confirmed 01/28/20] metFORMIN HCl [Glucophage] 1,000 mg PO BID 03/17/16 [History Confirmed 01/28/20] Glipizide [Glipizide ER] 10 mg PO DAILY 12/11/18 [History Confirmed 01/28/20] Semaglutide [Ozempic] 1 mg SQ QWEEK 08/14/19 [History Confirmed 01/28/20] acetaminophen 325 mg capsule 325 mg PO Q4H PRN cap 01/28/20 [History Confirmed 01/28/20] aspirin 81 mg tablet,delayed release 81 mg PO DAILY 01/28/20 [History Confirmed 01/28/20] sucralfate 1 gram tablet 1 g PO QACHS #100 tab 01/28/20 [Rx Confirmed 01/28/20] PFSH Medical History High cholesterol (Chronic) Obesity (Chronic) HTN (hypertension), benign (Chronic) DM type 2 (diabetes mellitus, type 2) (Chronic) Chest pain (Acute) Arthritis (Acute) Biliary dyskinesia (Acute) Depression (Acute) Sleep apnea (Acute) Surgical History (Updated 01/28/20 @ 08:58 by Tavia Mccoy) No history of previous surgery (Acute) Family History (Updated 01/28/20 @ 08:58 by Tavia Mccoy) Mother Hypertension Heart disease Social History (Updated 01/28/20 @ 09:[address] Angel Mittal MD) Smoking Status: Never smoker alcohol intake: never substance use type: does not use HPI HPI HPI: DAYAMI MONTES, is a 49 F who presents to the office today for HPI HPI Surgical H&P: Yes HPI: DAYAMI MONTES, is a 49 F who presents to the office today for Epigastric pain and right upper quadrant pain. The patient has been having epigastric and right upper quadrant pain for some time now. She does say that she vomited once. She is not having any melena or blood in her stool. She describes the pain as aching and it happens whenever she eats certain foods. She says she is able to tolerate ice cream well but she is not able to eat Posta. She says this usually happens when she eats. ROS General General: Yes weight change; no appetite, fatigue, colon cancer, breast cancer or weakness HEENT HEENT: No difficulty swallowing, eye injury, eye surgery, swollen glands or hoarseness Endo Endocrine: Yes diabetes mellitus; no thyroid disease, thyroid cancer, Hair loss, heat intolerance or cold intolerance Skin Skin: No rash or changing moles Breast Breast: No left breast lump, right breast lump, nipple discharge, breast pain, abnormal mammogram, abnormal US or breast enlargement Musc Musculoskeletal: Yes arthritis; no back problems, rheumatoid arthritis, gout or joint pain Cardio Cardiovascular: Yes high blood pressure; no murmur, pacemaker, heart disease, atrial fibrillation, heart attack, heart stent, palpitations, shortness of breat with exertion or chest pain Psych Psychiatric: Yes depression; no anxiety or hearing voices Resp Respiratory: No shortness of breath, Yes sleep apnea, No cough, No COPD, No asthma, No emphysema, No wheezing Gastro Gastrointestinal: Yes abdominal pain, No nausea or vomiting, No diarrhea, No constipation, No blood in stool, No acid reflux, No hemorrhoids, No ulcers, Yes gallbladder problem, No black,tarry stools Johnathon Hematologic: No blood thinners, No blood disorders, No bleeding, No anemia, No blood clots Neuro Neurologic: No system reviewed and no additional complaints, except as docu, No as per HPI, No abnormal walking, No abnormal hearing, No abnormal movements, No abnormal speech, No behavioral changes, No burning sensations, No confusion, No seizure-like activity, No unsteadiness, No dizziness, No localized weakness, No frequent falls, No headache(s), No lack of coordination, No loss of vision, No memory loss, No numbness, No other visual disturbances, No radiating pain, No restless legs, No sensory deficit, No fainting, No tingling, No tremor(s), No weakness, No other Exam Const General: cooperative Orientation: alert, oriented x3 Chest Breast Palpation: No nipple discharge Resp Effort & Inspection: normal respiratory effort Auscultation: clear to auscultation bilaterally Cardio Rate: regular rate Rhythm: regular rhythm Heart Sounds: no murmurs GI Inspection: non-distended Palpation: soft, tender in the epigastrum and in the RUQ Assessment & Plan Problems 1. Screen for colon cancer Z12.11 2. Epigastric pain R10.13 3. Abnormal biliary HIDA scan R94.8 Plan The patient is having epigastric and right upper quadrant pain. It is that her tolerated diet includes ice cream but she is unable to tolerate Posta. The symptoms more point toward gastritis and peptic ulcer disease. The patient says that when she tried a PPI she felt very nauseous and stopped it and the nausea went away when she stopped her PPI. I recommend performing an EGD before performing laparoscopic cholecystectomy. The patient had an ultrasound which did not show any stones and she had a HIDA scan which showed an ejection fraction of 22%. If EGD is normal I will proceed with laparoscopic cholecystectomy. I also prescribed the patient some Carafate to try in the interim before her scopes could be performed. Patient has never had screening colonoscopy. Recommend perform a colonoscopy at the same time as EGD. I explained endoscopy in detail to the patient. I explained the risks including but not limited to stroke or heart attack with anesthesia, perforation of the GI tract, bleeding, infection. I explained that any of these could necessitate further emergency surgery. The patient understands and all questions were answered sufficiently. The patient wishes to proceed with procedure. We discussed the current risks associated with COVID-19. While it is understood that there is a community spread of COVID-19, the risk of diana COVID-19 while at [facility] ([facility]) is very low; however, the risk cannot be completely mitigated because of the community spread of the disease. We discussed in detail the risk of exposure to and/or potential harm posed by the COVID-19 virus with having a surgery/procedure at this time versus the risk of delaying the surgery/procedure. It is not possible to know either the risk of delaying the surgery or procedure or chance of getting an infection with perfect accuracy, but a joint decision was made to proceed at this time with the scheduled surgery/procedure as indicated on the consent form. Patient was notified that we will need to comply with any screening or testing [facility] wishes to perform or that surgery may be delayed for any positive results. Angel Mittal MD Pager: [facility] [address] [place] [address], [address] [place] [address] Office: Orders Orders: Colonoscopy Today Z12.11 EGD Today R10.13 Medications New: sucralfate (Carafate) 1 g PO QACHS 100 tabs 0RF Coding Level of Care Code Off vis,new,level 4 Diagnoses Screen for colon cancer Z12.11 Epigastric pain R10.13 Abnormal biliary HIDA scan R94.8 Time Spent (min) 45 01/28/20 0919 <Electronically signed by Angel box MD> Date _ Angel Mittal MD I have re-examined the patient. There are no clinical changes since date of exam.
[2020-02-03 01:10] VITALS: BMI 36.8
[2020-02-13] VITALS (7 sets, daily range): BP systolic 116–146; BP diastolic 63–75; PULSE 69–90; RESP 16; TEMP 36.1–36.9; O2SAT 96–98; BMI 35.5
--- NOTE | 2020-02-13 | GASB_PTH ---
PATIENT: DAYAMI MONTES [place]: [facility] [place] U[place][id number] AGE/SX: 55/F ROOM: RE02/20/[address]: Dr. Angel Mittal MD : 1970 BED: DIS: SPEC #: [id number] RECD: 02/13/20 13:45 STATUS: CORRINA RAS #: [id number] LANE: 02/13/20 00:[address]: Angel Mittal DEPT: SURGICAL PATHOLOGY RECD BY: Nicolás Bradshaw ENTERED: 02/13/20 13:45 SP TYPE: Gastric Bx OTHR DR: Dr. Sourav Forbes MD Tissues: Gastric mucous membrane Procedures: Surgery Specimen Level IV HEADER OPERATION: Colonoscopy, EGD [place] [place] PRE-OP DIAGNOSIS: Abnormal biliary HIDA, epigastric pain, screening TISSUE SUBMITTED: Antrum biopsy for H. pylori and path MICROSCOPIC DIAGNOSIS Antrum biopsy: Mild gastritis. See microscopic description and comment. SJ:miguelina 02/16/20 COMMENT The results of immunohistochemistry for Helicobacter pylori will be reported separately ([id number]). MICROSCOPIC DESCRIPTION Slides are reviewed. The specimen shows fragments of gastric mucosa with chronic inflammatory cell infiltrates in the lamina propria consisting of lymphocytes and plasma cells, consistent with mild chronic gastritis. GROSS DESCRIPTION Received in fixative is one container labeled with the patient's name and designated antrum biopsy. The specimen consists of one irregular fragment of light palmer soft tissue that measures 0.5 x 0.3 x 0.1 cm. The specimen is totally submitted in one cassette. / LANDY:miguelina 02/13/20 TC:3 CPT: 98756
[2020-02-13 09:20] LABS: Internal QC Validated? YES +Cl - CLEAR BKGD; Pregnancy, Urine Negative Negative
[2020-02-13] MEDS: Lactated Ringers 1,000 ML 100 ML IV (09:21)
--- NOTE | 2020-02-13 10:00 | IMM_PTH ---
PATIENT: DAYAMI MONTES [place] [facility] [place][id number] AGE/SX: 55/F ROOM: RE02/20/[address]: Dr. Angel Mittal MD : 1970 BED: DIS: SPEC #: [id number] RECD: 02/13/20 14:03 STATUS: CORRINA REYasmeen #: [id number] LANE: 02/13/20 10:[address]: Angel Mittal DEPT: IMMUNOHISTOCHEMISTRY RECD BY: Anais Sierra ENTERED: 02/13/20 14:03 SP TYPE: IMMUNO OTHR DR: Dr. Sourav Forbes MD Tissues: Stomach, NOS Procedures: H Pylori (initial) PHYSICIAN & INSTITUTION [place] [id number] SPECIMEN INFORMATION: Tissue Source: Antrum biopsy Clinical Info: Abnormal biliary HIDA, epigastric pain, screening Specimen Number: [id number] CPT code: 60029 METHODOLOGY: Deparaffinized sections of prefer/formalin-fixed tissue or PAP/DQ stained slides are incubated with monoclonal/polyclonal antibodies/oligonucleotide probes. Localization is made via biotin free immunoperoxidase method. Appropriate controls are performed and reacted as expected. Results on target cell population are indicated in the following table: RESULTS: ANTIBODY / CLONE RESULT H Pylori (polyclonal) negative These tests were developed and their performance characteristics determined by [facility]. They may not have been cleared or approved by the U.S. Food and Drug Administration. The FDA has determined that such clearance or approval is not necessary. INTERPRETATION: Antrum biopsy: Negative for Helicobacter pylori organisms. LANDY:miguelina 02/17/20
[2020-02-13 11:00] LABS: Bedside Glucose 328 mg/dL (70-110)
--- NOTE | 2020-02-13 11:13 | OP.EGD_ITS ---
Patient Name: Jenn Adair Procedure Date: 02/13/2020 10:11 AM Date of : 1970 Age: 49 Procedure: Upper GI endoscopy Indications: Epigastric abdominal pain, Abdominal pain in the right upper quadrant Providers: Angel Mittal MD Referring MD: Sourav Forbes Medicines: Monitored Anesthesia Care Patient Profile: This is a 49 year old female. Refer to note in patient chart for documentation of history and physical. Complications: No immediate complications. Procedure: Pre-Anesthesia Assessment: - Prior to the procedure, a History and Physical was performed, and patient medications and allergies were reviewed. The patient's tolerance of previous anesthesia was also reviewed. The risks and benefits of the procedure and the sedation options and risks were discussed with the patient. All questions were answered, and informed consent was obtained. Prior Anticoagulants: The patient has taken no previous anticoagulant or antiplatelet agents. After reviewing the risks and benefits, the patient was deemed in satisfactory condition to undergo the procedure. After obtaining informed consent, the endoscope was passed under direct vision. Throughout the procedure, the patient's blood pressure, pulse, and oxygen saturations were monitored continuously. The gastroscope was introduced through the mouth, and advanced to the second part of duodenum. The upper GI endoscopy was accomplished without difficulty. The patient tolerated the procedure well. Scope In: 10:26:10 AM Scope Out: 10:28:59 AM Total Procedure Duration Time 0 hours 2 minutes 49 seconds Findings: The esophagus was normal. The stomach was normal. The examined duodenum was normal. Biopsies were taken with a cold forceps in the gastric antrum for Helicobacter pylori testing. Impression: - Normal esophagus. - Normal stomach. - Normal examined duodenum. - Biopsies were taken with a cold forceps for Helicobacter pylori testing. Recommendation: - Discharge patient to home. - Resume previous diet. - Continue present medications. Procedure Code(s): --- Professional --- 31165, Esophagogastroduodenoscopy, flexible, transoral; with biopsy, single or multiple Diagnosis Code(s): --- Professional --- R10.13, Epigastric pain R10.11, Right upper quadrant pain CPT copyright 2017 [employer]. All rights reserved. The codes documented in this report are preliminary and upon docent coordinator review may be revised to meet current compliance requirements. Angel Mittal MD 02/13/2020 11:13:30 AM This report has been signed electronically. Number of Addenda: 0 Note Initiated On: 02/13/2020 10:11 AM
--- NOTE | 2020-02-13 11:14 | OP.CCLET_ITS ---
02/13/2020 Sourav Forbes [address] [place] [address] Re : Upper GI endoscopy procedure for Jenn Adair Dear Dr. Forbes This procedure was performed on Thursday, February 13, 2020. My impressions and recommendations are as follows: Impressions : - Normal esophagus. - Normal stomach. - Normal examined duodenum. - Biopsies were taken with a cold forceps for Helicobacter pylori testing. Recommendations : - Discharge patient to home. - Resume previous diet. - Continue present medications. My findings are described in the full procedure note, which is enclosed. If I can be of further assistance, please feel free to contact me at Doctor phone number(s): , Work: . Sincerely, Angel Mittal MD 02/13/2020 11:13:30 AM This report has been signed electronically.
--- NOTE | 2020-02-13 11:15 | OP.CCLET_ITS ---
02/13/2020 Sourav Forbes [address] [place] [address] Re : Colonoscopy procedure for Jenn Adair Dear Dr. Forbes This procedure was performed on Thursday, February 13, 2020. My impressions and recommendations are as follows: Impressions : - The entire examined colon is normal on direct and retroflexion views. - No specimens collected. Recommendations : - Discharge patient to home. - Resume previous diet. - Continue present medications. - Repeat colonoscopy in 10 years for screening purposes. My findings are described in the full procedure note, which is enclosed. If I can be of further assistance, please feel free to contact me at Doctor phone number(s): , Work: . Sincerely, Angel Mittal MD 02/13/2020 11:14:50 AM This report has been signed electronically.
--- NOTE | 2020-02-13 11:15 | OP.COLON_ITS ---
Patient Name: Jenn Adair Procedure Date: 02/13/2020 10:29 AM Date of : 1970 Age: 49 Procedure: Colonoscopy Indications: Screening for colorectal malignant neoplasm Providers: Angel Mittal MD Referring MD: Sourav Forbes Medicines: Monitored Anesthesia Care Patient Profile: This is a 49 year old female. Refer to note in patient chart for documentation of history and physical. Last Colonoscopy: none. The patient's first colonoscopy is today. Complications: No immediate complications. Procedure: Pre-Anesthesia Assessment: - Prior to the procedure, a History and Physical was performed, and patient medications and allergies were reviewed. The patient's tolerance of previous anesthesia was also reviewed. The risks and benefits of the procedure and the sedation options and risks were discussed with the patient. All questions were answered, and informed consent was obtained. Prior Anticoagulants: The patient has taken no previous anticoagulant or antiplatelet agents. After reviewing the risks and benefits, the patient was deemed in satisfactory condition to undergo the procedure. After I obtained informed consent, the scope was passed under direct vision. Throughout the procedure, the patient's blood pressure, pulse, and oxygen saturations were monitored continuously. The colonoscope was introduced through the anus and advanced to the cecum, identified by appendiceal orifice and ileocecal valve. The colonoscopy was performed without difficulty. The patient tolerated the procedure well. The quality of the bowel preparation was adequate. Scope In: 10:31:05 AM Scope Withdrawal Time 0 hours 6 minutes 43 seconds Scope Out: 10:42:07 AM Total Procedure Duration Time 0 hours 11 minutes 2 seconds Findings: The entire examined colon appeared normal on direct and retroflexion views. Impression: - The entire examined colon is normal on direct and retroflexion views. - No specimens collected. Recommendation: - Discharge patient to home. - Resume previous diet. - Continue present medications. - Repeat colonoscopy in 10 years for screening purposes. Procedure Code(s): --- Professional --- 00204, Colonoscopy, flexible; diagnostic, including collection of specimen(s) by brushing or washing, when performed (separate procedure) Diagnosis Code(s): --- Professional --- Z12.11, Encounter for screening for malignant neoplasm of colon CPT copyright 2017 [employer]. All rights reserved. The codes documented in this report are preliminary and upon drop count associate review may be revised to meet current compliance requirements. Angel Mittal MD 02/13/2020 11:14:50 AM This report has been signed electronically. Number of Addenda: 0 Note Initiated On: 02/13/2020 10:29 AM
== END ==
LOC: EN 02-13 08:53 → AC 02-13 08:54 → SDC 10:40
PROVIDERS: Anesthesiology; PCP Internal Medicine; Referring Provider Internal Medicine; Visit Provider Surgery
PROC: 0DJD8ZZ Inspection of Lower Intestinal Tract, Via Natural or Artificial Opening Endoscopic (ICD-10-PCS; CPT 45378; principal; 2020-02-13 09:55)
DX: Z12.11 Encounter for screening for malignant neoplasm of colon (principal); K29.70 Gastritis, unspecified, without bleeding; Z11.59 Encounter for screening for other viral diseases; I10 Essential (primary) hypertension; E78.00 Pure hypercholesterolemia, unspecified; E66.9 Obesity, unspecified; Z68.36 Body mass index [BMI] 36.0-36.9, adult; E11.9 Type 2 diabetes mellitus without complications; M19.90 Unspecified osteoarthritis, unspecified site; G47.30 Sleep apnea, unspecified; F41.9 Anxiety disorder, unspecified; F32.9 Major depressive disorder, single episode, unspecified; Z79.82 Long term (current) use of aspirin; Z79.84 Long term (current) use of oral hypoglycemic drugs; Z79.899 Other long term (current) drug therapy
CPT/HCPCS: 43239; G0121; 81025; 82962; 87635; 88305; 88342; 94799; J7120; J2405; U0003

== ENCOUNTER 2020-06-10 11:00 | Outpatient (RCR) | payer MEDICARE, SELFPAY ==
[2020-02-13 09:16] VITALS: BMI 35.5
== END 2020-06-24 23:59 ==
LOC: DC 11:00
PROVIDERS: PCP Internal Medicine; Visit Provider Orthopaedic Surgery
DX: Z71.3 Dietary counseling and surveillance (principal); E11.9 Type 2 diabetes mellitus without complications; E66.9 Obesity, unspecified; Z68.41 Body mass index [BMI] 40.0-44.9, adult
CPT/HCPCS: 97802; G0108

== ENCOUNTER 2020-06-28 10:37 | Outpatient (RCR) | payer MEDICARE, SELFPAY ==
[2020-02-13 09:16] VITALS: BMI 35.5
== END 2020-07-25 23:59 ==
LOC: DC 10:37
PROVIDERS: PCP Internal Medicine; Visit Provider Orthopaedic Surgery
DX: Z71.3 Dietary counseling and surveillance (principal); E11.9 Type 2 diabetes mellitus without complications; Z68.41 Body mass index [BMI] 40.0-44.9, adult
CPT/HCPCS: 97803

== ENCOUNTER 2020-07-06 10:02 | Day surgery (SDC) | payer MEDICARE, SELFPAY ==
[2020-02-13 09:16] VITALS: BMI 35.5
--- NOTE | 2020-06-30 12:42 | PCM.HP.BLA ---
History and Physical Date of Admission: 07/06/20 HISTORY AND PHYSICAL Jenn Adair 1970 REFERRING PHYSICIAN: Sourav Forbes MD CHIEF COMPLAINT: No chief complaint on file. HPI: The patient is a 50 year old female presents with complaint of epigastric abdominal pain. She describes the pain as a severe ache, with occasional sharp twinges. She has noted this for about a year. She also notes acid indigestion and heartburn, but rare, about twice per month. She denies nausea/emesis. She states that pain is worsened with eating, lasting most of the day. Sleeping makes the pain better, it is usually better in the night. Trigger foods - meat and spicy foods US RUQ abdomen 01/10/2020 IMPRESSION: Hepatic steatosis. No evidence for cholelithiasis. HIDA scan 01/22/2020 IMPRESSION: DECREASED GALLBLADDER RESPONSE TO CCK (After CCK was administered IV, the calculated gallbladder ejection fraction was 22% (normal range, >35%). COMPATIBLE WITH CHRONIC CHOLECYSTITIS IN THE APPROPRIATE CLINICAL SETTING. NO SCINTIGRAPHIC EVIDENCE TO SUPPORT THE DIAGNOSIS OF ACUTE CHOLECYSTITIS. NO EVIDENCE FOR DUODENOGASTRIC BILIARY REFLUX. PAST MEDICAL HISTORY Diagnosis Date ? Bilateral chronic knee pain 04/22/2012 ? Depression 04/22/2012 ? Diabetes mellitus (HCC) 03/14/2012 ? HTN (hypertension) 03/14/2012 ? Hyperlipidemia 03/14/2012 ? Lumbago ? RODGER on CPAP 07/26/2012 ? Osteoarthrosis involving, or with mention of more than one site, but not specified as generalized, site unspecified(715.80) ARTHRITIS MULTIPLE SITES (NOT GENERL)( Site Unspecified) ? Urge incontinence of urine 04/22/2012 ? Urinary calculus, unspecified Renal stones ? Urinary tract infection, site not specified Recurrent UTI's PAST SURGICAL HISTORY Procedure Laterality Date ? COLONOSCOP W/ OR W/O BRSH SPEC 02/13/2020 Colonoscopy repeat in 10 years ? EGD 02/13/2020 mild gastritis, Hpylori negative ? GLOBAL ESWL KIDNEY Left side ? REMOVE TONSILS/ADENOIDS,12+ Y/O 1982 T/A (over age 11 years) Current Outpatient Medications Medication Sig ? semaglutide (OZEMPIC) 0.25 mg or 0.5 mg(2 mg/1.5 mL) pnij Inject 0.5 mg subcutaneously one time a week. ? insulin lispro (HUMALOG KWIKPEN INSULIN) 100 unit/mL Inject 8 Units subcutaneously three times daily with meals. ? ibuprofen (MOTRIN) 800 mg tablet Take 1 tablet by mouth every 8 hours as needed for Pain (with food.). ? oxybutynin ER (DITROPAN XL) 10 mg 24 hr tablet Take 1 tablet by mouth every evening ? metFORMIN (GLUCOPHAGE) 1,000 mg tablet Take 1 tablet by mouth twice daily with meals. ? hydroCHLOROthiazide (HYDRODIURIL, ESIDRIX) 25 mg tablet Take 1 tablet by mouth once daily. ? insulin needles, DISPOSABLE, (PEN NEEDLE) 31 gauge x 5/16 Use one needle per dose. once per day. ? blood sugar diagnostic (BLOOD GLUCOSE TEST) test strip Test blood sugar(s) 2 times daily. Dx: Type 2 DM - Uncontrolled E11.65 Insulin: Yes ? cyclobenzaprine (FLEXERIL) 10 mg tablet Take 1 tablet by mouth three times daily as needed for Muscle Spasm. ? insulin glargine (LANTUS SOLOSTAR U-100 INSULIN) 100 unit/mL (3 mL) Inject 15 Units subcutaneously daily at bedtime. ? oxybutynin ER (DITROPAN XL) 15 mg 24 hr Extended Rel Tab Take 1 tablet by mouth every morning ? pravastatin (PRAVACHOL) 40 mg tablet Take 1 tablet by mouth once daily. ? FLUoxetine (PROZAC) 20 mg capsule Take 1 capsule by mouth once daily. ? lisinopril (ZESTRIL) 40 mg tablet Take 1 tablet by mouth once daily. ? COMPOUNDED PRESCRIPTION Weight goal: 200 pounds. ? aspirin, enteric coated (ASPIR-LOW) 81 mg EC tablet Take 1 tablet by mouth once daily. ALLERGIES: Patient has no known allergies. PERSONAL HISTORY: Social History Tobacco Use ? Smoking status: Never Smoker ? Smokeless tobacco: Never Used Substance Use Topics ? Alcohol use: No ? Drug use: No FAMILY HISTORY Problem Relation Age of Onset ? Hypertension Mother ? Heart Mother Heart failure. A.fib. ? COPD Father ? Diabetes Maternal Grandmother ? Breast Cancer Maternal Aunt ? None Brother ? None Brother REVIEW OF SYSTEMS: General - denies fevers/chills, denies anorexia, denies weight loss Cardiovascular - denies chest pain, denies history of SD Pulmonary - has shortness of breath with exertion, denies coughing up blood Gastrointestinal -see HPI, denies hematemesis, denies blood in stools Neurological - has neuropathy due to diabetes, denies seizures, denies chronic numbness/weakness of extremities except for diabetic neuropathy Genitourinary - stress urinary incontinence, denies burning with urination, denies blood in urine Hematological - denies spontaneous/prolonged bleeding Skin - denies nonhealing skin wounds Musculoskeletal - no new muscle/bone pain Endocrine - has diabetes, no thyroid problems, last menstrual period 10/08/2019 Psychological ? has known depression disorder, denies hallucinations PHYSICAL EXAMINATION: General: The patient is 50 year old female, well nourished, well hydrated in no acute distress. The patient is oriented to time, place, and person. VITALS: Pulse 96, temperature 36.3 ?C (97.4 ?F), temperature source Temporal Artery, weight 102.7 kg (226 lb 6.4 oz), SpO2 98 %. Body mass index is 41.41 kg/m?. Head ? Normocephalic. EOM intact with sclera clear and no icterus noted. Mouth with mucus membranes moist. Neck - supple with no jugular venous distention noted. Trachea is midline. Lungs ? clear to auscultation. Normal breath sounds. No rales/rhonchi/wheezing noted. No labored breathing noted, such as retractions. No cough heard. Heart ? normal S1 and S2 auscultated. No rubs/clicks/murmurs noted. Regular rate. Abdomen ? soft and benign. Normal bowel sounds. No abdominal bruits noted. Difficult to determine if any masses or organomegaly due to body habitus. Extremities ? no calf tenderness noted. No pitting edema noted. Skin ? normal skin integrity. Neurological ? gait normal, no focal deficits noted. Psych ? calm and appropriate RADIOLOGIC STUDIES: As Noted IMPRESSION: epigastric abdominal pain, abnormal HIDA scan PLAN: I have discussed the above with the patient. I have offered laparoscopic cholecystectomy, possible cholangiograms I have explained the procedure to the patient. I have counseled the patient as to the risks of the procedure, including but not limited to: infection, bleeding, injury to any blood vessels/nerves, scar tissue, injury to any intrabdominal organs, injury to bowel/bladder, injury to the common bile duct/biliary tree, bile leakage, intraabdominal abscess/bleeding, hernias at incisional sites, wound infections, complications of anesthesia, non resolution of symptoms, etc. ? the patient understands. . The patient was offered a surgery/procedure The provider and patient have discussed in detail the risk of exposure to and/or potential harm posed by the COVID-19 virus with having a surgery/procedure at this time versus the risk of delaying the surgery/procedure. It is not possible to know either the risk of delaying the surgery or procedure or chance of getting an infection with perfect accuracy, but a joint decision was made between the patient and the provider to proceed at this time with the scheduled surgery/procedure. The patient wishes to proceed. Told patient to stop taking aspirin on Sunday. Patient acknowledges above. I have answered all questions to the patient?s satisfaction and the patient has no further questions. . Diagnoses: (R10.13) Epigastric abdominal pain (primary encounter diagnosis) (R94.8) Abnormal biliary HIDA scan (Z79.82) On aspirin at home (E66.01) Morbid obesity (HCC) Return to Clinic: The patient is instructed to follow-up with me after the procedure
--- NOTE | 2020-07-01 09:06 | EKG12_ITS ---
Test Reason : PRE OP Blood Pressure : / mmHG Vent. Rate : 079 BPM Atrial Rate : 079 BPM P-R Int : 154 ms QRS Dur : 086 ms QT Int : 388 ms P-R-T Axes : -07 042 029 degrees QTc Int : 444 ms Sinus rhythm with occasional Premature ventricular complexes Otherwise normal ECG Confirmed by SUDHIR COLORADO, JUSTO ([id number]), editor at large AMARILIS GEORGE ([id number]) on 07/02/2020 8:29:09 AM Referred By: Erica Dailey Confirmed By:JUSTO PEGUERO MD
[2020-07-01 09:58] LABS: Hematocrit 39.3 % (37-47); Hemoglobin 12.6 g/dL (12.0-15.0); Mean Corp Hgb Conc 32.1 g/dL (32-36); Mean Corpuscular Hgb 29.8 pg (27.0-32.0); Mean Corpuscular Volume 92.9 fL (81-99); Mean Platelet Vol. 9.6 fl (6.2-12.0); Platelet Count 518 K/mm3 (150-450); RBC Distribution Width CV 13.1 % (11.6-14.6); RBC Distribution Width SD 44.8 fl (35.1-43.9); Red Blood Count 4.23 M/mm3 (4.2-5.4); White Blood Count 8.9 K/mm3 (4.4-11.0)
[2020-07-01 10:31] LABS: Anion Gap 4 (5-15); BUN 26 mg/dL (7-18); BUN/Creat Ratio 43.4 RATIO (10-20); Calcium,Total 9.5 mg/dL (8.5-10.1); Chloride 104 mmol/L (98-107); EST Glomerular Filtration Rate 112 mL/min (>60); Est Glom Filt Rate - Afr Amer 136 mL/min (>60); Glucose 130 mg/dL (74-106); Potassium 3.8 mmol/L (3.5-5.1); Sodium Level 137 mmol/L (136-145)
[2020-07-06] VITALS (11 sets, daily range): BP systolic 120–151; BP diastolic 63–75; PULSE 76–94; RESP 14–16; TEMP 36.4–36.6; O2SAT 94–98; BMI 41.2
--- NOTE | 2020-07-06 | GALL_PTH ---
PATIENT: DAYAMI MONTES LOC: [facility] [place] U#:[id number] AGE/SX: 50/F ROOM: RE07/06/[address]: Dr. Erica Dailey MD : 1970 BED: DIS: 07/06/2020 SPEC #: [id number] RECD: 07/06/20 14:45 STATUS: CORRINA REYasmeen #: [id number] LANE: 07/06/20 00:[address]: Erica Dailey DEPT: SURGICAL PATHOLOGY RECD BY: Nicolás Bradshaw ENTERED: 07/07/20 08:47 SP TYPE: ABAD TSE DR: Dr. Sourav Forbes MD Tissues: Gallbladder, NOS Procedures: Surgery Specimen Level III HEADER OPERATION: Laparoscopic cholecystectomy with IOC PRE-OP DIAGNOSIS: Epigastric abdominal pain, abnormal HIDA scan TISSUE SUBMITTED: Gallbladder MICROSCOPIC DIAGNOSIS Gallbladder, cholecystectomy: Chronic cholecystitis and cholesterolosis. No stones are identified in the container or in the gallbladder. SJ:miguelina 07/08/2020 MICROSCOPIC DESCRIPTION Slides are reviewed. GROSS DESCRIPTION Received is one container labeled with the patient's name and designated gallbladder. The specimen consists of a gallbladder measuring 7 x 2.5 x 1 cm. The external surface is smooth and glistening. Focally, it is granular, hemorrhagic and contains cautery artifact. The lumen of the gallbladder contains yellow-green mucoid bile and no calculi. The mucosa is bile-stained and without any mass lesions. The gallbladder wall averages 0.2 cm in thickness and is free of mass lesions. Ship Construction Teacher sections of the gallbladder and the cystic duct at margin of resection are submitted in one cassette. / AM:miguelina 07/07/20 TC:3 CPT: 54408
[2020-07-06 10:38] LABS: Internal QC Validated? YES +Cl - CLEAR BKGD; Pregnancy, Urine Negative Negative
[2020-07-06] MEDS: Lactated Ringers 1,000 ML 75 ML IV ×2 (10:48→14:56)
[2020-07-06 11:05] LABS: Bedside Glucose 102 mg/dL (70-110)
--- NOTE | 2020-07-06 11:27 | PCM.DC.GB ---
Discharge Diet: No Restrictions - drink plenty of fluids, avoid carbonated beverages for a couple of days Discharge Activity: Return to Normal Activity Lifting Restrictions: no lifting greater than 20 pounds for two weeks Call your doctor if your incision/area has: Continuous Slow Oozing, Foul Smelling Discharge Additional Instructions: Recommended pain control regimen - May take 600 mg ibuprofen (Motrin) and then in 3-4 hours, may take 650 mg acetaminophen (Tylenol), then in 3-4 hours may take 600 mg ibuprofen, then in 3-4 hours may take 650 mg acetaminophen and so on for 2-3 days May take narcotic pain medication for pain that is not controlled by above and at night for comfort through the night Leave dressings in place May get dressings wet in shower - do not scrub in the area and pat dry Do not soak - no tub baths/swimming If dressing appears to be soiled/open at one end/no longer sealed - may remove dressing but leave site uncovered (do not replace with any type of dressing) - leave steristrips in place - may get wet but do not scrub in the area and pat dry Allergies/Adverse Reactions: Allergies No Known Allergies Allergy (Verified 07/06/20 10:15) Medications to take at Discharge Fluoxetine [Prozac] 20 mg PO DAILY 03/17/16 Hydrochlorothiazide [Hctz] 25 mg PO DAILY 03/17/16 Lisinopril [Zestril] 40 mg PO DAILY 03/17/16 Oxybutynin Chloride [Ditropan Xl] 10 mg PO DAILY 03/17/16 Pravastatin [Pravachol] 40 mg PO DAILY 03/17/16 metFORMIN HCl [Glucophage] 1,000 mg PO BID 03/17/16 Glipizide [Glipizide ER] 10 mg PO DAILY 12/11/18 Semaglutide [Ozempic] 1 mg SQ QWEEK 08/14/19 acetaminophen 325 mg capsule 325 mg PO Q4H PRN cap 01/28/20 aspirin 81 mg tablet,delayed release 81 mg PO DAILY 01/28/20 Hydrocodone Bitart/Apap 5-325 [[place] 5MG-325MG] 1 tablet PO Q8H PRN PRN 5 Days #15 tablet 07/06/20 The following prescriptions were given: Hydrocodone Bitart/Apap 5-325 [[place] 5MG-325MG] 1 tablet PO Q8H PRN PRN 5 Days #15 tablet PRN Reason: Pain Score 4-10 Transmission Status: Sent to [facility] #30 Primary Care Physician: Sourav Forbes MD [Primary Care Provider] - Test Results: Test results from this visit will be discussed in further detail at your follow-up appointment, if applicable. Please Follow Up With: Erica Dailey MD - When: to be seen in 1-2 weeks, please call for date and time, thank you
--- NOTE | 2020-07-06 11:45 | RAD_ITS ---
STUDY: INTRAOPERATIVE CHOLANGIOGRAM. REASON FOR EXAM: Female, 50 years old. PAIN. IOC. 1 IMAGE FLUOROSCOPY TIME (if supplied): ( 1.5 seconds ) minutes/seconds TECHNIQUE: An intraoperative cholangiogram was performed by the surgeon. A single image was submitted. COMPARISON: None. FINDINGS: The visualized intrahepatic biliary ducts as well as the common bile duct are unremarkable. No intraluminal filling defects are seen. RAD/Cholangiogram/ O R,Initial IMPRESSION: Unremarkable intraoperative cholangiogram. Electronically Signed: Andres Morgan, at 14:18 EST , Service support ,
[2020-07-06] MEDS: Bupiv/Epi 0.25% 30 ML Vial (12:26)
[2020-07-06] MEDS: Ketorolac 15 MG/ML Vial IV (13:21)
[2020-07-06 13:50] LABS: Bedside Glucose 189 mg/dL (70-110)
--- NOTE | 2020-07-06 15:04 | OP.PCM_ITS ---
Report of Operation Date of Procedure: 07/06/20 Pre-Operative Diagnosis: RUQ abdominal pain, abnormal biliary HIDA scan Post-Operative Diagnosis: same Surgery/Procedure Performed:: laparoscopic cholecystectomy with intraoperative cholangiograms Description of Surgical Findings:: normal intraoperative cholangiograms acoustical installer: James Carter Type of Anesthesia:: General Anesthesiologist: Kaveh Bonner Specimen's removed: gallbladder and contents Estimated Blood Loss (mL): < 20 ml Fluids Replaced: see anesthesia note Description of Procedure: After informed consent was given, the patient was brought to the Operating Room. Appropriate time out protocol was followed. The patient was placed in the supine position. The patient was then placed under general endotracheal anesthesia by the anesthesia provider. The abdomen was then prepped with a ster ile surgical skin preparation and sterile surgical drapes were placed. An area superior to the umbilical dimple was grasped with penetrating clamps and the skin and subcutaneous tissues were infiltrated with 0.25% marcaine with epinephrine. A skin incision was then made with a 15 blade scalpel. The anterior abdominal wall was elevated. Under direct visualization, the fascia was divided sharply until the intraabdominal cavity was entered. An 11 mm trocar was then placed in the intraabdominal cavity. A CO2 pneumoperitoneum was then created. A 10mm laparoscope was then inserted into the trocar and careful attention was directed to the intraabdominal contents. There was no evidence of injury to any intraabdominal organs from insertion of the trocar. Under direct visualization, a 5mm subxiphoid trocar and two lateral 5mm right subcostal trocars were placed. The skin and subcutaneous tissues at these sites were infiltrated with 0.25% marcaine with epinephrine prior to placement of these trocars. Attention was then directed to the right upper quadrant of the abdomen. Graspers were placed in the lateral trocars to grasp the distal aspect of the gallbladder and direct it cephalad and to grasp the gallbladder at Hernández?s pouch and direct it laterally. There was some omental adhesions to the gallbladder on its free surface proximally. Dissection then began on the proximal gallbladder continuing down to the area of the triangle of Calot to bluntly dissect out the cystic duct. The neck of the gallbladder was identified and blunt dissection continued to dissect out a segment of the cystic duct. A clip was then placed on the neck of the gallbladder. A small ductotomy was then made. A Ranfac catheter was brought in through a separate skin incision and placed into the cystic duct. An intraoperative cholangiogram was performed under fluoroscopy. The xray revealed no lesions in the common bile duct, arborization of the biliary tree and good flow into the duodenum. The Ranfac catheter was then removed and two clips were placed proximal to the ductotomy and the cystic duct was then transected. The cystic artery was visualized and bluntly isolated and then two clips were placed proximally and one clip distally and then it was transected between the proximal and distal clips. The gallbladder was then from the liver bed using electrocautery. Once from the liver bed, it was placed in an Endobag. It was then brought out via the umbilical port. It was then forwarded to pathology for analysis. The liver bed was carefully examined. There was no evidence of bile leakage or bleeding. The cystic duct stump and cystic artery stump had their clips intact and there was no evidence of bile leakage or bleeding. The remainder of the abdomen was grossly normal. The CO2 was released and all trocars removed intact. The periumbilical fascia was approximated with a [id number] 0 vicryl suture. All skin incision were closed with 4-0 monocryl in a subdermal fashion. Cavilol and Steristrips were used to reinforce the skin closure. Sterile dressings were applied to all wounds. Sponge, needle and instrument count was verified and correct at time of skin closure. The patient was extubated and brought to the Recovery Room in stable condition. - Complications none noted - Admit VTE Documentation VTE Present on Admission: Yes VTE Mechan Device Prophylaxis: SCD's
[2020-07-06] MEDS: HYDROcodone Bitartrate/Apap 5/325 Tablet PO (18:03)
--- NOTE | 2020-07-06 18:35 | SUR.PHASEII ---
spoke to patient about going home without voiding. Patient states she does not feel comfortable going home without urinating first. Informed patient that according to the bladder scan she only has a little over 200cc in bladder and that Dr Dailey feels she would be fine to go home without voiding. Pt states that she has never had trouble voiding after a procedure in the past. Pt states she would rather be straight cathed. Straight cathed patient for 200 cc boni urine
== END 2020-07-06 18:39 | disposition home or self-care (01) ==
LOC: SDC 10:12 → AC 10:12
PROVIDERS: Anesthesiology; PCP Internal Medicine; Referring Provider Surgery; Visit Provider Surgery
PROC: (CPT 47610; principal; 2020-07-06 11:30)
DX: K81.1 Chronic cholecystitis (principal); Z20.828 Contact with and (suspected) exposure to other viral communicable diseases; E66.01 Morbid (severe) obesity due to excess calories; F32.9 Major depressive disorder, single episode, unspecified; I10 Essential (primary) hypertension; E78.5 Hyperlipidemia, unspecified; E11.9 Type 2 diabetes mellitus without complications; G47.33 Obstructive sleep apnea (adult) (pediatric); E78.00 Pure hypercholesterolemia, unspecified; Z87.440 Personal history of urinary (tract) infections; Z79.4 Long term (current) use of insulin; Z79.899 Other long term (current) drug therapy
CPT/HCPCS: 00790; 47563; 36415; 74300; 76000; 80048; 81025; 82962; 83036; 85027; 87426; 88304; 93005; C9803; J7120; J2405

== ENCOUNTER 2020-07-29 10:49 | Outpatient (RCR) | payer MEDICARE, SELFPAY ==
[2020-07-06 10:48] VITALS: BMI 41.2
== END 2020-07-29 23:59 | disposition home or self-care (01) ==
LOC: DC 10:49
PROVIDERS: PCP Internal Medicine; Visit Provider Orthopaedic Surgery
DX: Z71.3 Dietary counseling and surveillance (principal); E11.9 Type 2 diabetes mellitus without complications; E66.9 Obesity, unspecified; Z68.41 Body mass index [BMI] 40.0-44.9, adult
CPT/HCPCS: 97803

== ENCOUNTER 2020-10-08 20:30 | Emergency (ER) | payer MEDICARE, SELFPAY ==
[2020-07-06 10:48] VITALS: BMI 41.2
[2020-10-08 20:31] VITALS: BP 160/73; PULSE 98; RESP 18; TEMP 36.4; O2SAT 97; BMI 41.7
[2020-10-08 20:52] VITALS: O2SAT 97
--- NOTE | 2020-10-08 21:05 | ED.DCSUM_ITS ---
History of Present Illness Chief Complaint: Cough Informant: Patient Onset: Days - 5 Narrative: 5-day history of nonproductive cough sinus congestion. No fevers myalgias headaches rhinorrhea or sore throat. No vomiting or diarrhea. Denies any dyspnea. States seen in urgent care yesterday told us a head cold with no testing. However states her significant other had symptoms the next day that were similar and was tested in urgent care and it returned positive. History of hypertension and diabetes. History of sleep apnea. Denies tobacco history. Denies any immunosuppression history. Prior similar symptoms: No Past Medical History - Allergies and Home Meds Allergies/Adverse Reactions: Allergies No Known Allergies Allergy (Verified 10/08/20 20:33) Primary Care Physician: Sourav Forbes MD [Primary Care Provider] - Past Medical History: - - Hypertension, diabetes, sleep apnea Surgical History: tonsillectomy, - Smoking Status: Never smoker - Family History Maternal Family History: Family History (Last Updated 01/28/20 @ 08:58 by Tavia Mccoy) Mother Hypertension Heart disease Family History: Reports: Heart Disease Paternal Family History: Family History (Last Updated 01/28/20 @ 08:58 by Tavia Mccoy) Mother Hypertension Heart disease Family History: Reports: Pulmonary Disease, - Review of Systems General: Denies: Chills, Fever, Sweats Eyes: Denies: Visual changes - bilaterally, Diplopia ENT: Denies: Rhinorrhea, Sore throat Cardiovascular: Denies: Chest pain, Palpitations Respiratory: Reports: Cough. Denies: Dyspnea, Dyspnea on exertion Gastrointestinal: Denies: Abdominal pain, Nausea, Vomiting, Diarrhea, Melena, Hematochezia Genitourinary: Denies: Dysuria, Hematuria, Frequency Musculoskeletal: Denies: Back pain, Extremity Pain Skin: Denies: Rash, Wounds Neurological: Denies: Headache, Weakness, Numbness Physical Exam Vital Signs/Narrative: Vital Signs Temp Pulse Resp BP Pulse Ox 10/08/20 20:31 97.6 F L 98 18 160/73 H 97 Inital Vital Signs reviewed: Yes General: Well nourished, Well developed, No Acute Distress Head: Normocephalic, Atraumatic Eyes: Perrl, EOMI ENT: Moist mucous membranes, No rhinorrhea Neck: Supple, Nontender Cardiovascular: Regular rate, Regular rhythm, No murmurs Respiratory: No distress, CTA bilaterally, Chest nontender Abdomen: Soft, Nontender, Nondistended, Normal bowel sounds Back: Nontender, Normal Inspection Extremities: Nontender, No edema Skin: Normal color, No rash Neurological: Alert, Oriented x3, Cranial nerves II-XII grossly intact, Normal Strength, Normal Sensation Psychological: Normal affect, Normal Mood Diagnostic/Tx/Re-eval - Medical Decision Making Patient nontoxic vital signs stable. Pulse ox 97% on room air. No respiratory symptoms. Covid testing obtained and returned positive. She does not require oxygen she is a diabetic, discussed with patient that she is a possible candidate for monoclonal antibody treatment as an outpatient. She agrees to be evaluated therefore referral was placed in the system to contact the patient. Patient is currently on day 5. Isolation precautions and strict return precau tions. Patient is being discharged under pandemic conditions under declared global, national and state disaster activation, with limited medical resources. Patient and community understands this. Results discussed in layman's terms to the patient satisfaction. All questions answered in layman's terms. Patient understands importance of follow-up care as directed. Patient has been instructed to return to the ED immediately if new symptoms, problems, or questions occur. We mutually agree with the plan of disposition. The patient understand that they may call or return with any questions or concerns at any time. ED Disposition - Plan for ED Patient: Disposition: Home or Assisted Living Diagnosis: COVID-19 virus infection Instructions: Coronavirus Disease 2019 (COVID-19): Caring for Yourself or Others Referrals: Sourav Forbes MD [Primary Care Provider] - 5-7 Days Additional Instructions: Referral made to contact you for potential monoclonal antibody treatment as an outpatient.
[2020-10-08 22:14] VITALS: RESP 18
== END 2020-10-08 22:15 | disposition home or self-care (01) ==
PROVIDERS: Emergency Provider Emergency Medicine; PCP Internal Medicine
DX: U07.1 COVID-19 (principal); I10 Essential (primary) hypertension; E11.9 Type 2 diabetes mellitus without complications; G47.30 Sleep apnea, unspecified; Z79.4 Long term (current) use of insulin; Z79.82 Long term (current) use of aspirin; Z79.899 Other long term (current) drug therapy
CPT/HCPCS: 87426; 99283

== ENCOUNTER 2020-11-06 23:58 | Emergency (ER) | payer MEDICARE, SELFPAY ==
[2020-11-06 23:59] VITALS: BP 161/81; PULSE 83; RESP 16; TEMP 37.2; O2SAT 95; BMI 41.3
--- NOTE | 2020-11-07 00:32 | EX.ED.DYSGE1 ---
HPI History of Present Illness Chief Complaint: Abd Pain Narrative Narrative: Presents with abdominal discomfort. Is been bothering her since dinnertime approximately 7 hours ago. Describes as sharp pain in the left upper quadrant. No nausea or vomiting. No radiation. Reproducible with pushing on it. No history of gastritis or GERD per patient. She has recently several months ago had her gallbladder taken out. She denies any pain on the opposite side. Comes in for further evaluation. No home treatment. Current severity is mild to moderate. [facility] Medical History Arthritis Biliary dyskinesia Chest pain Depression DM type 2 (diabetes mellitus, type 2) High cholesterol HTN (hypertension), benign Obesity Sleep apnea Home Medications fluoxetine 20 mg PO DAILY 03/17/16 [History Last Taken Unknown] hydrochlorothiazide 25 mg PO DAILY 03/17/16 [History Last Taken Unknown] lisinopril 40 mg PO DAILY 03/17/16 [History Last Taken 07/06/20] metformin 1,000 mg PO BID 03/17/16 [History Last Taken Unknown] oxybutynin chloride 10 mg PO DAILY 03/17/16 [History Last Taken Unknown] pravastatin 40 mg PO DAILY 03/17/16 [History Last Taken Unknown] glipizide 10 mg PO DAILY 12/11/18 [History Last Taken Unknown] semaglutide 1 mg SQ QWEEK 08/14/19 [History Last Taken Unknown] acetaminophen 325 mg capsule 325 mg PO Q4H PRN cap 01/28/20 [History Last Taken Unknown] aspirin 81 mg tablet,delayed release 81 mg PO DAILY 01/28/20 [History Last Taken Unknown] insulin glargine 18 units SQ QHS 10/08/20 [History Last Taken Unknown] insulin lispro 8 unit SQ TIDCM 10/08/20 [History Last Taken Unknown] meclizine 12.5 mg PO 10/08/20 [History Last Taken Unknown] Allergy/AdvReac Type Severity Reaction Status Date / Time No Known Allergies Allergy Verified 11/07/20 00:00 Family History Mother Hypertension Heart disease Surgical History No history of previous surgery Social History Smoking Status: Never smoker alcohol intake: never substance use type: does not use ROS ROS ED ROS Narrative ROS General: Denies fever, chills, sweats Eyes: Denies visual changes, blurred vision, double vision ENT: Denies ear pain, rhinorrhea, sore throat Cardiovascular: Denies chest pain, palpitations, heart racing Respiratory: Denies dyspnea, cough, sputum, dyspnea on exertion, orthopnea,PND GI: See HPI : Denies dysuria, hematuria, frequency Musculoskeletal: Denies myalgias, arthralgias, neck pain, back pain Skin: Denies rash, abscess, abrasions Neuro: Denies headache, weakness, paresthesia Psych: Denies depression, anxiety Endo: Denies polyuria, polydipsia, polyphagia Heme: Denies easy bruising, easy bleeding, lymphadenopathy Allergy: Denies hives, swelling EXAM Physical Exam Narrative Exam Narrative: Vital signs reviewed General: Well-nourished well-developed Head: Normocephalic atraumatic Eyes: Pupils equal round and reactive to light extraocular movements intact ENT: TMs clear no hemotympanum no trauma Neck: Nontender full range of motion Cardiovascular: Regular rate rhythm no murmurs normal S1-S2 Respiratory: No distress clear to auscultation bilaterally chest nontender Abdomen: Soft tender left upper quadrant without guarding or rebound nondistended normal bowel sounds no masses Back: Nontender no CVA tenderness Extremities: Nontender active range of motion ?4 extremities no trauma Skin: Normal color no trauma Neuro alert oriented cranial nerves II through XII intact normal strength sensation reflexes Const Vital Signs: 11/06/20 23:59 Temperature 98.9 F Temperature Source Temporal Pulse Rate 83 Respiratory Rate 16 Blood Pressure 161/81 H Blood Pressure Mean 107 Pulse Ox 95 Oxygen Delivery Method Room Air MDM MDM MDM Narrative Medical decision making narrative: IV established and given Toradol morphine and GI cocktail. Lab work obtained. Patient felt much better after treatment. Still with some very mild left upper quadrant discomfort. Lab work shows a very mild leukocytosis without left shift. Liver function test lipase electrolytes unremarkable. At this time I feel she can be discharged. Will be given a short course of Bentyl and Zofran. This may be gastritis related. Have a low suspicion for acute coronary syndrome PE or dissection. No chest discomfort noted. We will follow-up as an outpatient Lab Data Labs: Laboratory Results - last 24 hr 11/07/20 11/07/20 00:49 00:49 WBC 11.6 H RBC 4.37 Hgb 13.2 Hct 40.6 MCV 92.9 MCH 30.2 MCHC 32.5 RDW Std Deviation 45.1 H RDW Coeff of Kaushik 13.2 Plt Count 455 H MPV 10.0 Immature Gran % (Auto) 0.300 Neut % (Auto) 56.3 Lymph % (Auto) 34.7 [place] % (Auto) 6.4 Eos % (Auto) 1.8 Baso % (Auto) 0.5 Absolute Neuts (auto) 6.5 Absolute Lymphs (auto) 4.02 Nucleated RBC % 0 Sodium 138 Potassium 3.7 Chloride 103 Carbon Dioxide 29.0 Anion Gap 6 BUN 13 Creatinine 0.69 Estim Creat Clear Calc 76.29 Est GFR (MDRD) Af Amer 114 Est GFR (MDRD) Non-Af 94 BUN/Creatinine Ratio 18.7 Glucose 266 H Calcium 10.0 Total Bilirubin 0.20 AST 11 L ALT 22 Alkaline Phosphatase 101 Total Protein 7.7 Albumin 3.6 Globulin 4.1 Albumin/Globulin Ratio 0.9 Lipase 49 L Discharge Plan Triage Chief Complaint: Abd Pain ED Provider: Tino Damon Dx/Rx/DC Orders Prescriptions: No Action aspirin [Adult Low Dose Aspirin] 81 mg tablet,delayed release (DR/EC) 81 mg PO DAILY RF: 0 acetaminophen [Tylenol] 325 mg capsule 325 mg PO Q4H PRN (Reason: Pain Or Fever) RF: 0 oxybutynin chloride 10 MG tablet extended release 24hr 10 mg PO DAILY RF: 0 pravastatin 40 MG tablet 40 mg PO DAILY RF: 0 metformin 1,000 MG tablet 1,000 mg PO BID RF: 0 hydrochlorothiazide 25 MG tablet 25 mg PO DAILY RF: 0 lisinopril 40 MG tablet 40 mg PO DAILY RF: 0 fluoxetine 20 MG capsule 20 mg PO DAILY RF: 0 glipizide 10 MG tablet extended release 24hr 10 mg PO DAILY RF: 0 semaglutide 1 MG/0.75 ML pen injector 1 mg SQ QWEEK RF: 0 meclizine 12.5 MG tablet 12.5 mg PO RF: 0 insulin lispro 100 UNIT/ML insulin pen 8 unit SQ TIDCM RF: 0 insulin glargine 100 UNITS/ML insulin pen 18 units SQ QHS RF: 0 Primary Care Provider: Sourav Forbes
[2020-11-07] MEDS: Mag Hydrox/Al Hydrox/Simeth 30 ML UDC PO (00:47)
[2020-11-07] MEDS: Ketorolac 15 MG/ML Vial IV (00:49)
[2020-11-07] MEDS: Morphine 4 MG/ML Syringe IV (00:50)
[2020-11-07 00:56] LABS: Absolute Lymphocyte Count 4.02 X10^3/uL (0.83-4.51); Absolute Neutrophil Count 6.5 X10^3/uL (2.0-7.7); Basophil# 0.06 X10^3/uL; Basophil% 0.5 % (0-1); Eosinophil# 0.21 X10^3/uL; Eosinophils% 1.8 % (0-5); Hematocrit 40.6 % (37-47); Hemoglobin 13.2 g/dL (12.0-15.0); Lymphocyte # 4.02 X10^3/ul (0.83-4.51); Lymphocyte % 34.7 % (19-41); Mean Corp Hgb Conc 32.5 g/dL (32-36); Mean Corpuscular Hgb 30.2 pg (27.0-32.0); Mean Corpuscular Volume 92.9 fL (81-99); Monocyte# 0.74 X10^3/uL; Monocyte% 6.4 % (0-10); NRBC Flagged by Analyzer 0 % (0-5); Neutrophil # 6.52 X10^3/uL (2.7-7.7); Neutrophil % 56.3 % (47-70); Platelet Count 455 K/mm3 (150-450); RBC Distribution Width CV 13.2 % (11.6-14.6); RBC Distribution Width SD 45.1 fl (35.1-43.9); Red Blood Count 4.37 M/mm3 (4.2-5.4); White Blood Count 11.6 K/mm3 (4.4-11.0)
[2020-11-07 01:11] LABS: ALB/GLOB Ratio 0.9 RATIO (0.9-2.4); AST(SGOT) 11 U/L (15-37); Alanine Aminotransfer ALT/SGPT 22 U/L (13-56); Albumin, Serum 3.6 g/dL (3.2-5.0); Alkaline Phosphatase 101 U/L (45-117); Anion Gap 6 (5-15); BUN 13 mg/dL (7-18); BUN/Creat Ratio 18.7 RATIO (10-20); Chloride 103 mmol/L (98-107); Creatinine, Serum 0.69 mg/dL (0.55-1.02); EST Glomerular Filtration Rate 94 mL/min (>60); Est Glom Filt Rate - Afr Amer 114 mL/min (>60); Estimated Creatinine Clearance 76.29 ml/min; Globulin 4.1 g/dL (2.2-4.2); Glucose 266 mg/dL (74-106); Lipase 49 U/L (73-393); Potassium 3.7 mmol/L (3.5-5.1); Protein, Total 7.7 g/dL (6.4-8.2); Sodium Level 138 mmol/L (136-145)
[2020-11-07 01:46] VITALS: BP 120/72; PULSE 78; RESP 16; O2SAT 98
== END 2020-11-07 01:47 | disposition home or self-care (01) ==
PROVIDERS: Emergency Provider Emergency Medicine; PCP Internal Medicine
DX: R10.12 Left upper quadrant pain (principal); I10 Essential (primary) hypertension; E11.9 Type 2 diabetes mellitus without complications; E66.9 Obesity, unspecified; Z68.41 Body mass index [BMI] 40.0-44.9, adult; K82.8 Other specified diseases of gallbladder; E78.00 Pure hypercholesterolemia, unspecified; F32.9 Major depressive disorder, single episode, unspecified; G47.30 Sleep apnea, unspecified; M19.90 Unspecified osteoarthritis, unspecified site; Z79.4 Long term (current) use of insulin; Z79.82 Long term (current) use of aspirin; Z79.899 Other long term (current) drug therapy
CPT/HCPCS: 80053; 83690; 85025; 96374; 96375; 99285; A4216

== ENCOUNTER 2021-03-02 14:55 | Emergency (ER) | payer MEDICARE, SELFPAY ==
[2021-03-02 14:56] VITALS: BP 150/95; PULSE 99; RESP 18; TEMP 36.6; O2SAT 90; BMI 42.1
[2021-03-02 14:58] VITALS: O2SAT 100
== END 2021-03-02 16:33 | disposition left against medical advice (07) ==
LOC: ED 16:34
PROVIDERS: PCP Internal Medicine
DX: Z53.21 Procedure and treatment not carried out due to patient leaving prior to being seen by health care provider (principal)

== ENCOUNTER 2021-07-02 00:32 | Emergency (ER) | payer MEDICARE, SELFPAY ==
[2021-07-02 00:33] VITALS: BP 156/94; PULSE 89; RESP 16; TEMP 35.6; O2SAT 96; BMI 44.9
--- NOTE | 2021-07-02 01:14 | CT_ITS ---
HISTORY: dizziness TECHNIQUE: Multiple axial images were obtained of the brain without intravenous contrast. Coronal and sagittal reformats obtained. Bone algorithm axial images obtained. A radiation dose optimization technique was used for this scan. COMPARISON: None FINDINGS: # of images incl. paperwork: 231 HEMORRHAGE: No evidence of acute intracranial hemorrhage. CEREBRAL PARENCHYMA: --Volume: Unremarkable for age. --White matter: Unremarkable. --Mass: Nonspecific 7 x 5 x 8 mm focal hyperattenuation is seen along the right anterior falx is above the cribriform plate, axial image 15 and sagittal image 35. --Stroke: Sofia-white matter differentiation is preserved. VENTRICULAR SYSTEM: No hydrocephalus. MASS EFFECT: No midline shift or focal sulci effacement. Basal cisterns are preserved. SCALP: No large scalp hematoma. CALVARIUM/SKULL BASE: No fracture. PARANASAL SINUSES: Clear. MASTOID AIR CELLS: Clear. ORBITS: Imaged portions are unremarkable. VESSELS: Carotid and vertebral atherosclerosis. ASPECTS acute stroke score: 10 CT/Brain/Head without Contrast IMPRESSION: No CT evidence of acute intracranial hemorrhage or injury. Possible 8 mm mass versus artifact along the anterior inferior right falx, most commonly represent meningioma though not seen on prior CT. Follow-up brain MRI with IV contrast recommended to further evaluate when clinically able. Individualized dose optimization techniques were used for this CT. at 0301 Reported and signed by: Moisés Adames MD N.B. : Galen Bull DO, confirmed on 07/02/2021 03:43:11 (ET) that the healthcare facility has received the radiology report. Electronically Signed: Moisés Adames MD at 2:59 EST Tel , Service support ,
--- NOTE | 2021-07-02 01:14 | EKG12_ITS ---
Test Reason : DYSRHYTHMIA Blood Pressure : / mmHG Vent. Rate : 083 BPM Atrial Rate : 083 BPM P-R Int : 142 ms QRS Dur : 084 ms QT Int : 398 ms P-R-T Axes : -11 059 028 degrees QTc Int : 467 ms Normal sinus rhythm Normal ECG Confirmed by SUDHIR COLORADO, JUSTO ([id number]), social media editor AMARILIS GEORGE ([id number]) on 07/06/2021 11:36:46 AM Referred By: GRETTA Confirmed By:JUSTO PEGUERO MD
[2021-07-02] MEDS: diazePAM 5 MG Tablet PO (01:33)
[2021-07-02] MEDS: 0.9% Normal Saline 1,000 ML 999 ML IV (01:33)
--- NOTE | 2021-07-02 03:25 | MRI_ITS ---
STUDY: MRI BRAIN WITH AND WITHOUT CONTRAST REASON FOR EXAM: Female, [address], brain mass TECHNIQUE: Standardized multiplanar fat and water weighted pulse sequences were obtained. IV Dotarem 20ml was administered for the contrast portion of the examination. COMPARISON: CT FINDINGS: Normal size of the ventricles and extra-axial spaces for the patient''s age. Normal white matter tracts of the supratentorial brain. There is no evidence for recent intracranial ischemia or other cause of cytotoxic edema on diffusion weighted imaging (DWI). Normal T2* images of the brain without demonstrated susceptibility artifact. There is no demonstrated hemosiderin stain. There is 1.1 x 0.9 cm enhancing extra-axial mass of the right frontal region adjacent to the falx, corresponding to the CT abnormality, series 13 image 56/136 through 61/136. Normal bilateral basal ganglia. Normal thalami. There is no extra-axial fluid accumulation. Normal flow voids within the major intracranial circulation suggesting patency by spin echo criteria. Normal venous enhancement. Normal sella turcica, pituitary gland, infundibular stalk, optic chiasm and hypothalamus. Normal tectal plate and pineal gland. Normal midbrain, devi and medulla. Normal cerebellum. Normal basal cisterns. Normal bilateral temporal bones. Normal bilateral internal auditory canals. No demonstrated orbital abnormality, within the constraints of a routine brain study. Normal visualized paranasal sinuses. Normal calvarium and skull base. Normal visualized soft tissue structures. Normal visualized upper cervical spine. MRI/Brain W/WO Contrast IMPRESSION: No acute intracranial abnormality. Right frontal extra-axial mass with probable meningioma. Electronically Signed: Thiago Quiroga MD at 10:58 EST , Service support ,
[2021-07-02 03:28] LABS: Absolute Neutrophil Count 9.5 X10^3/uL (2.0-7.7); Basophil# 0.06 X10^3/uL; Basophil% 0.4 % (0-1); Eosinophils% 1.4 % (0-5); Hematocrit 39.8 % (37-47); Hemoglobin 12.7 g/dL (12.0-15.0); Lymphocyte % 24.1 % (19-41); Mean Corp Hgb Conc 31.9 g/dL (32-36); Mean Corpuscular Hgb 29.7 pg (27.0-32.0); Mean Corpuscular Volume 93.2 fL (81-99); Mean Platelet Vol. 9.7 fl (6.2-12.0); Monocyte# 0.86 X10^3/uL; Monocyte% 6.1 % (0-10); NRBC Flagged by Analyzer 0 % (0-5); Neutrophil # 9.52 X10^3/uL (2.7-7.7); Neutrophil % 67.5 % (47-70); Platelet Count 417 K/mm3 (150-450); RBC Distribution Width CV 12.8 % (11.6-14.6); RBC Distribution Width SD 43.8 fl (35.1-43.9); Red Blood Count 4.27 M/mm3 (4.2-5.4); White Blood Count 14.1 K/mm3 (4.4-11.0)
[2021-07-02 04:09] LABS: Anion Gap 7 (5-15); BUN 17 mg/dL (7-18); Calcium,Total 8.8 mg/dL (8.5-10.1); Chloride 105 mmol/L (98-107); Creatinine, Serum 0.68 mg/dL (0.55-1.02); EST Glomerular Filtration Rate 97 mL/min (>60); Est Glom Filt Rate - Afr Amer 117 mL/min (>60); Estimated Creatinine Clearance 73.03 ml/min; Glucose 127 mg/dL (74-106); Potassium 3.5 mmol/L (3.5-5.1); Sodium Level 141 mmol/L (136-145); Troponin-I HS 4 pg/mL (3.0-54.0)
--- NOTE | 2021-07-02 07:07 | EDS_ITS ---
HPI History of Present Illness Chief Complaint: Dizziness Narrative Narrative: Patient is a 51-year-old female with hypertension hyperlipidemia and diabetes. She states around 1130 this evening she was sitting on her boyfriend's couch watching TV when she felt flushed and developed lig htheadedness/dizziness. She states she was concerned her sugar may be low so she checked it and it was normal at 150. She states her dizziness was persisting however and secondary to this her boyfriend advised her to come to the hospital for evaluation. Patient denies any chest pain or palpitations associated with the dizziness/lightheadedness she denies any tinnitus or recent head trauma. She also denies any sick symptoms [facility] Medical History Arthritis Biliary dyskinesia Chest pain Depression DM type 2 (diabetes mellitus, type 2) High cholesterol HTN (hypertension), benign Obesity Sleep apnea Home Medications fluoxetine 20 mg PO DAILY 03/17/16 [History Last Taken Unknown] hydrochlorothiazide 25 mg PO DAILY 03/17/16 [History Last Taken Unknown] lisinopril 40 mg PO DAILY 03/17/16 [History Last Taken 07/06/20] metformin 1,000 mg PO BID 03/17/16 [History Last Taken Unknown] oxybutynin chloride 10 mg PO DAILY 03/17/16 [History Last Taken Unknown] pravastatin 40 mg PO DAILY 03/17/16 [History Last Taken Unknown] glipizide 10 mg PO DAILY 12/11/18 [History Last Taken Unknown] semaglutide 1 mg SQ QWEEK 08/14/19 [History Last Taken Unknown] acetaminophen 325 mg capsule 325 mg PO Q4H PRN cap 01/28/20 [History Last Taken Unknown] aspirin 81 mg tablet,delayed release 81 mg PO DAILY 01/28/20 [History Last Taken Unknown] insulin glargine 18 units SQ QHS 10/08/20 [History Last Taken Unknown] insulin lispro 8 unit SQ TIDCM 10/08/20 [History Last Taken Unknown] meclizine 12.5 mg PO 10/08/20 [History Last Taken Unknown] dicyclomine 10 mg PO BID #10 cap 11/07/20 [Rx Last Taken Unknown] ondansetron HCl [Zofran] 4 mg PO Q8H #10 tab 11/07/20 [Rx Last Taken Unknown] Allergy/AdvReac Type Severity Reaction Status Date / Time No Known Allergies Allergy Verified 11/07/20 00:00 Family History Mother Hypertension Heart disease Surgical History No history of previous surgery Social History Smoking Status: Never smoker alcohol intake: never substance use type: does not use ROS ROS ED Constitutional Constitutional ED: Denies chills or fever(s) Eyes Eyes: Denies change in vision ENT ENT ED: Denies ear pain or sore throat Cardiovascular Cardiovascular: Denies chest pain, palpitations or racing heartbeat Respiratory/Chest Respiratory/Chest: Denies cough or dyspnea Gastrointestinal Gastrointestinal: Denies abdominal pain, diarrhea, nausea or vomiting Genitourinary Genitourinary ED: Denies dysuria Musculoskeletal Musculoskeletal: Denies myalgias Integumentary Denies rash Neurologic Neurologic: Reports other Details: Positive dizziness/lightheadedness ; Denies headache(s) Hematologic/Lymphatic Hematologic/Lymphatic: Denies easy bleeding or easy bruising EXAM Physical Exam Const Vital Signs: 07/02/21 00:33 07/02/21 00:36 Temperature 96.0 F L Temperature Source Temporal Pulse Rate 89 Respiratory Rate 16 Respiratory Pattern Normal Blood Pressure 156/94 H Blood Pressure Mean 114 Pulse Ox 96 Oxygen Delivery Method Room Air Positive well nourished, well developed and obese General Appearance ED: well developed Nutritional Appearance: obese HEENT Reports dry mucous membranes Mouth ED: Yes dry mucous membranes Mouth: dry mucous membranes Eyes PERRL and EOMs intact bilaterally Neck supple Resp normal respiratory effort and clear to auscultation bilaterally Cardio regular rate and regular rhythm Rate: other Other Details: Radial pulses are plus 2 out of 4 bilaterally are equal and symmetric GI normal to inspection, nondistended, normoactive bowel sounds, non-tender, non- distended and no masses Auscultation: normoactive bowel sounds Palpation: soft Extremity normal to inspection Neuro oriented x3 and CN's II-XII intact bilaterally Neuro Narrative: Patient has horizontal nystagmus noted as well as positive Hallpike [place] exam on right. She does state that she has resolution of her dizziness if she is not moving. Cranial nerves II through XII are grossly intact without focal neurologic deficit. No pronator drift or truncal ataxia or dysmetria noted. Sensorium / Orientation: alert Motor Exam: strength 5/5 throughout Psych mental status grossly normal Skin no rashes or lesions noted MDM MDM MDM Narrative Medical decision making narrative: Patient presented to the ER with dizziness that seem to worsen with motion. She also reported resolution of the dizziness while at rest. Her vitals are stable with a slightly hypertensive blood pressure but patient does have a history of hypertension. Clinically she presents more as a peripheral vertigo with her positive Hallpike [place] exam and horizontal nystagmus. However as she does have multiple risk factors such as hypertension hyperlipidemia and diabetes I elected perform basic labs and a head CT. Labs revealed no clinically significant findings but head CT showed a brain mass and recommended patient get an MRI with IV contrast. Patient was informed of this mass present on CT and that we will perform an MRI early this morning as her exam does not show changes consistent with any type of acute stroke. Patient was made aware that she may need transfer to a facility where they have neurology and neurosurgery based on the MRI and states she is agreeable with this plan Lab Data Attestation: I reviewed the patient's lab results. Labs: Laboratory Results - last 24 hr 07/02/21 07/02/21 03:15 03:15 WBC 14.1 H RBC 4.27 Hgb 12.7 Hct 39.8 MCV 93.2 MCH 29.7 MCHC 31.9 L RDW Std Deviation 43.8 RDW Coeff of Kaushik 12.8 Plt Count 417 MPV 9.7 Immature Gran % (Auto) 0.500 Neut % (Auto) 67.5 Lymph % (Auto) 24.1 [place] % (Auto) 6.1 Eos % (Auto) 1.4 Baso % (Auto) 0.4 Absolute Neuts (auto) 9.5 H Absolute Lymphs (auto) 3.40 Nucleated RBC % 0 Sodium 141 Potassium 3.5 Chloride 105 Carbon Dioxide 29.0 Anion Gap 7 BUN 17 Creatinine 0.68 Estim Creat Clear Calc 73.03 Est GFR (MDRD) Af Amer 117 Est GFR (MDRD) Non-Af 97 BUN/Creatinine Ratio 25.0 H Glucose 127 H Calcium 8.8 Troponin I High Sens 4 Radiography Diagnostic Testing: Clinical Impression(s) from Imaging Studies Brain CT 07/02/21 01:14 IMPRESSION: No CT evidence of acute intracranial hemorrhage or injury. Possible 8 mm mass versus artifact along the anterior inferior right falx, most commonly represent meningioma though not seen on prior CT. Follow-up brain MRI with IV contrast recommended to further evaluate when clinically able. Individualized dose optimization techniques were used for this CT. at 0301 Reported and signed by: Moisés Adames MD Electronically Signed: Moisés Adames MD at 2:59 EST Tel , Service support , ADDENDUM: 07/02/21 0350 IMPRESSION: No CT evidence of acute intracranial hemorrhage or injury. Possible 8 mm mass versus artifact along the anterior inferior right falx, most commonly represent meningioma though not seen on prior CT. Follow-up brain MRI with IV contrast recommended to further evaluate when clinically able. Individualized dose optimization techniques were used for this CT. at 0301 Reported and signed by: Moisés Adames MD N.B. : Galen Bull DO, confirmed on 07/02/2021 03:43:11 (ET) that the healthcare facility has received the radiology report. Electronically Signed: Moisés Adames MD at 2:59 EST Tel , Service support , Discharge Plan Triage Chief Complaint: Dizziness ED Provider: Galen Bull Dx/Rx/DC Orders Clinical Impression: Peripheral vertigo, Brain mass Prescriptions: No Action aspirin [Adult Low Dose Aspirin] 81 mg tablet,delayed release (DR/EC) 81 mg PO DAILY RF: 0 acetaminophen [Tylenol] 325 mg capsule 325 mg PO Q4H PRN (Reason: Pain Or Fever) RF: 0 oxybutynin chloride 10 MG tablet extended release 24hr 10 mg PO DAILY RF: 0 pravastatin 40 MG tablet 40 mg PO DAILY RF: 0 metformin 1,000 MG tablet 1,000 mg PO BID RF: 0 hydrochlorothiazide 25 MG tablet 25 mg PO DAILY RF: 0 lisinopril 40 MG tablet 40 mg PO DAILY RF: 0 fluoxetine 20 MG capsule 20 mg PO DAILY RF: 0 glipizide 10 MG tablet extended release 24hr 10 mg PO DAILY RF: 0 semaglutide 1 MG/0.75 ML pen injector 1 mg SQ QWEEK RF: 0 meclizine 12.5 MG tablet 12.5 mg PO RF: 0 insulin lispro 100 UNIT/ML insulin pen 8 unit SQ TIDCM RF: 0 insulin glargine 100 UNITS/ML insulin pen 18 units SQ QHS RF: 0 dicyclomine 10 mg capsule 10 mg PO BID Qty: 10 RF: 0 ondansetron HCl [Zofran] 4 mg tablet 4 mg PO Q8H Qty: 10 RF: 0 Primary Care Provider: Sourav Forbes Referrals: Sourav Forbes MD [Primary Care Provider] -
[2021-07-02 07:28] VITALS: RESP 16
[2021-07-02 08:17] VITALS: BP 145/63; PULSE 84; RESP 16; O2SAT 98
[2021-07-02 08:51] LABS: Bedside Glucose 159 mg/dL (70-110)
--- NOTE | 2021-07-02 11:36 | EX.ED.DYSGE1 ---
HPI History of Present Illness Chief Complaint: Dizziness Detail of Chief Complaint: Vertigo/dizziness Informant: patient Narrative Narrative: Care of patient turned over to me by Dr. Bull awaiting results of MRI. MRI showed a meningioma measuring 1.1 x 0.9 cm right frontal lobe believed to be meningioma. I did discuss case with Dr. Waters who recommended follow-up with primary care physician and repeat imaging in 6 months as likely no further treatment will be required. [facility] Medical History Arthritis Biliary dyskinesia Chest pain Depression DM type 2 (diabetes mellitus, type 2) High cholesterol HTN (hypertension), benign Obesity Sleep apnea Home Medications fluoxetine 20 mg PO DAILY 03/17/16 [History Last Taken Unknown] hydrochlorothiazide 25 mg PO DAILY 03/17/16 [History Last Taken Unknown] lisinopril 40 mg PO DAILY 03/17/16 [History Last Taken 07/06/20] metformin 1,000 mg PO BID 03/17/16 [History Last Taken Unknown] oxybutynin chloride 10 mg PO DAILY 03/17/16 [History Last Taken Unknown] pravastatin 40 mg PO DAILY 03/17/16 [History Last Taken Unknown] glipizide 10 mg PO DAILY 12/11/18 [History Last Taken Unknown] semaglutide 1 mg SQ QWEEK 08/14/19 [History Last Taken Unknown] acetaminophen 325 mg capsule 325 mg PO Q4H PRN cap 01/28/20 [History Last Taken Unknown] aspirin 81 mg tablet,delayed release 81 mg PO DAILY 01/28/20 [History Last Taken Unknown] insulin glargine 50 units SQ QHS 10/08/20 [History Last Taken Unknown] insulin lispro 10 unit SQ TIDCM 10/08/20 [History Last Taken Unknown] dicyclomine 10 mg PO BID #10 cap 11/07/20 [Rx Last Taken Unknown] meclizine 25 mg PO TID PRN #20 tab 07/02/21 [Rx Last Taken Unknown] Allergy/AdvReac Type Severity Reaction Status Date / Time No Known Allergies Allergy Verified 11/07/20 00:00 Family History Mother Hypertension Heart disease Surgical History No history of previous surgery Social History Smoking Status: Never smoker alcohol intake: never substance use type: does not use EXAM Physical Exam Const Vital Signs: 07/02/21 00:33 07/02/21 00:36 07/02/21 07:28 Temperature 96.0 F L Temperature Source Temporal Pulse Rate 89 Respiratory Rate 16 16 Respiratory Pattern Normal Blood Pressure 156/94 H Blood Pressure Mean 114 Pulse Ox 96 Oxygen Delivery Method Room Air 07/02/21 08:17 Temperature Temperature Source Pulse Rate 84 Respiratory Rate 16 Respiratory Pattern Blood Pressure 145/63 H Blood Pressure Mean 90 Pulse Ox 98 Oxygen Delivery Method Room Air MDM MDM MDM Narrative Medical decision making narrative: Patient to follow-up with primary care physician in 6 months for repeat imaging of her meningioma. Patient was believed to have benign positional vertigo otherwise. She will be written for Antivert. Lab Data Labs: Laboratory Results - last 24 hr 07/02/21 07/02/21 07/02/21 03:15 03:15 08:44 WBC 14.1 H RBC 4.27 Hgb 12.7 Hct 39.8 MCV 93.2 MCH 29.7 MCHC 31.9 L RDW Std Deviation 43.8 RDW Coeff of Kaushik 12.8 Plt Count 417 MPV 9.7 Immature Gran % (Auto) 0.500 Neut % (Auto) 67.5 Lymph % (Auto) 24.1 [place] % (Auto) 6.1 Eos % (Auto) 1.4 Baso % (Auto) 0.4 Absolute Neuts (auto) 9.5 H Absolute Lymphs (auto) 3.40 Nucleated RBC % 0 Sodium 141 Potassium 3.5 Chloride 105 Carbon Dioxide 29.0 Anion Gap 7 BUN 17 Creatinine 0.68 Estim Creat Clear Calc 73.03 Est GFR (MDRD) Af Amer 117 Est GFR (MDRD) Non-Af 97 BUN/Creatinine Ratio 25.0 H Glucose 127 H Calcium 8.8 Troponin I High Sens 4 POC Glucose 159 H Radiography Diagnostic Testing: Clinical Impression(s) from Imaging Studies Brain CT 07/02/21 01:14 IMPRESSION: No CT evidence of acute intracranial hemorrhage or injury. Possible 8 mm mass versus artifact along the anterior inferior right falx, most commonly represent meningioma though not seen on prior CT. Follow-up brain MRI with IV contrast recommended to further evaluate when clinically able. Individualized dose optimization techniques were used for this CT. at 0301 Reported and signed by: Moisés Adames MD N.B. : Galen Bull DO, confirmed on 07/02/2021 03:43:11 (ET) that the healthcare facility has received the radiology report. Electronically Signed: Moisés Adames MD at 2:59 EST Tel , Service support , Brain MRI 07/02/21 03:25 IMPRESSION: No acute intracranial abnormality. Right frontal extra-axial mass with probable meningioma. Electronically Signed: Thiago Quiroga MD at 10:58 EST , Service support , Discharge Plan Triage Chief Complaint: Dizziness ED Provider: Galen Bull Dx/Rx/DC Orders Clinical Impression: Peripheral vertigo, Brain mass Instructions: ED Vertigo, Unspecified Prescriptions: New meclizine 25 mg tablet 25 mg PO TID PRN (Reason: dizziness) Qty: 20 RF: 0 No Action aspirin [Adult Low Dose Aspirin] 81 mg tablet,delayed release (DR/EC) 81 mg PO DAILY RF: 0 acetaminophen [Tylenol] 325 mg capsule 325 mg PO Q4H PRN (Reason: Pain Or Fever) RF: 0 oxybutynin chloride 10 MG tablet extended release 24hr 10 mg PO DAILY RF: 0 pravastatin 40 MG tablet 40 mg PO DAILY RF: 0 metformin 1,000 MG tablet 1,000 mg PO BID RF: 0 hydrochlorothiazide 25 MG tablet 25 mg PO DAILY RF: 0 lisinopril 40 MG tablet 40 mg PO DAILY RF: 0 fluoxetine 20 MG capsule 20 mg PO DAILY RF: 0 glipizide 10 MG tablet extended release 24hr 10 mg PO DAILY RF: 0 semaglutide 1 MG/0.75 ML pen injector 1 mg SQ QWEEK RF: 0 insulin lispro 100 UNIT/ML insulin pen 10 unit SQ TIDCM RF: 0 insulin glargine 100 UNITS/ML insulin pen 50 units SQ QHS RF: 0 dicyclomine 10 mg capsule 10 mg PO BID Qty: 10 RF: 0 Primary Care Provider: Sourav Forbes Referrals: Sourav Forbes MD [Primary Care Provider] - 3-5 Days Disposition Disposition: Home, Self Care
[2021-07-02 12:14] VITALS: RESP 18
== END 2021-07-02 12:14 | disposition home or self-care (01) ==
PROVIDERS: Emergency Provider Emergency Medicine; PCP Internal Medicine; Visit Provider Emergency Medicine
DX: R42 Dizziness and giddiness (principal); E11.9 Type 2 diabetes mellitus without complications; Z79.4 Long term (current) use of insulin; G93.9 Disorder of brain, unspecified; E78.00 Pure hypercholesterolemia, unspecified; I10 Essential (primary) hypertension; F32.A Depression, unspecified; Z79.899 Other long term (current) drug therapy; Z79.82 Long term (current) use of aspirin; Z79.84 Long term (current) use of oral hypoglycemic drugs
CPT/HCPCS: 36415; 70450; 70553; 80048; 82962; 84484; 85025; 93005; 96360; 96361; 99283; A9575; J7030; A4216

== ENCOUNTER 2022-10-14 23:44 | Emergency (ER) | payer MEDICARE, SELFPAY ==
[2022-10-14 23:45] VITALS: BP 134/73; PULSE 96; RESP 18; TEMP 36; O2SAT 98; BMI 46.7
--- NOTE | 2022-10-15 00:15 | CT_ITS ---
INDICATION: flank pain EXAMINATION: CT ABDOMEN AND PELVIS WITHOUT CONTRAST - CT Abdomen And Pelvis W/O Contrast Injection TECHNIQUE: Helically acquired images were obtained of the abdomen and pelvis without oral or IV contrast. A radiation dose optimization technique was used for this scan. IV Contrast dosage and agent: None. Oral contrast: None. RADIATION DOSAGE (If Supplied By Facility): CTDIvol = ( 21.97 ) mGy, DLP = ( 1136.18 ) mGycm COMPARISON: FINDINGS: LOWER CHEST: Lung bases are clear. No cardiomegaly or pericardial effusion. LIVER: Homogeneous. No focal mass. No intra- or extrahepatic biliary ductal dilation. PANCREAS: No focal cystic or solid mass. SPLEEN: Normal size without focal cystic or solid mass. ADRENAL GLANDS: No nodules. KIDNEYS AND URETERS: There is nonobstructive stone in the left kidney measures 4 mm. Normal renal size and position. No hydronephrosis. PERITONEUM: No ascites or free air. No other fluid collection. BOWEL: No evidence of acute appendicitis. No stomach or bowel distension. No focal inflammatory change. LYMPH NODES: No enlarged mesenteric or retroperitoneal lymph nodes. VESSELS: Aorta is non-dilated. URINARY BLADDER: Unremarkable. REPRODUCTIVE ORGANS: No pelvic masses. ABDOMINAL WALL: No discrete abdominal or pelvic wall hernia. BONES: No lytic or blastic abnormality. CT/Abdomen/Pelvis without Cont IMPRESSION: There is nonobstructive stone in the left kidney measures 4 mm. Electronically Signed: Javier Chin MD at 1:20 EDT ,
--- NOTE | 2022-10-15 00:41 | EDS_ITS ---
HPI HPI - Female History of Present Illness Chief Complaint: Flank Pain Informant: patient and spouse/S.O. Narrative Narrative: Sudden left upper abdomen flank pain 11 PM 90 minutes prior to arrival. Resting when symptoms happen. History of 2 kidney stones in the past both requiring lithotripsy. She is unclear when her last one was. No nausea or vomiting. No urine symptoms. No fevers or chills. Denies any abdominal surgery history. [facility] Medical History Arthritis Biliary dyskinesia Chest pain Depression DM type 2 (diabetes mellitus, type 2) High cholesterol HTN (hypertension), benign Obesity Sleep apnea Home Medications fluoxetine 20 mg capsule 20 mg PO DAILY depression 03/17/16 [History Last Taken Unknown] hydrochlorothiazide 25 mg tablet 25 mg PO DAILY water pill 03/17/16 [History Last Taken Unknown] lisinopril 40 mg tablet 40 mg PO DAILY blood pressure 03/17/16 [History Last Taken 07/06/20] metformin 1,000 mg tablet 1,000 mg PO BID diabetes 03/17/16 [History Last Taken Unknown] oxybutynin chloride 10 mg tablet,extended release 24 hr 10 mg PO DAILY bladder 03/17/16 [History Last Taken Unknown] pravastatin 40 mg tablet 40 mg PO DAILY cholesterol 03/17/16 [History Last Taken Unknown] glipizide 10 mg tablet, extended release 24 hr 10 mg PO DAILY diabetes 12/11/18 [History Last Taken Unknown] semaglutide 1 mg/dose (2 mg/1.5 mL) subcutaneous pen injector 1 mg SQ MO weight loss 08/14/19 [History Last Taken Unknown] acetaminophen 325 mg capsule (Tylenol) 325 mg PO Q4H PRN Pain Or Fever 01/28/20 [History Last Taken Unknown] aspirin 81 mg tablet,delayed release (Adult Low Dose Aspirin) 81 mg PO DAILY 01/28/20 [History Last Taken Unknown] insulin glargine 100 unit/mL (3 mL) subcutaneous pen 50 units SQ QHS 10/08/20 [History Last Taken Unknown] insulin lispro 100 unit/mL subcutaneous pen 10 unit SQ TIDCM 10/08/20 [History Last Taken Unknown] meclizine 25 mg tablet 25 mg PO TID PRN dizziness #20 tabs 07/02/21 [Rx Last Taken Unknown] Allergy/AdvReac Type Severity Reaction Status Date / Time No Known Allergies Allergy Verified 10/14/22 23:47 Family History Mother Hypertension Heart disease Surgical History No history of previous surgery Social History Smoking Status: Never smoker alcohol intake: never substance use type: does not use ROS ROS ED Constitutional Constitutional ED: Denies chills, fever(s) or sweats Eyes Eyes: Denies change in vision ENT ENT ED: Denies dysphagia or sore throat Cardiovascular Cardiovascular: Denies chest pain, leg edema, palpitations or racing heartbeat Respiratory/Chest Respiratory/Chest: Denies cough, dyspnea or dyspnea on exertion Gastrointestinal Gastrointestinal: Reports abdominal pain; Denies diarrhea, nausea or vomiting Genitourinary Genitourinary ED: Denies dysuria, hematuria or urinary frequency Musculoskeletal Musculoskeletal: Reports back pain; Denies extremity pain or neck pain Integumentary Denies rash or wounds Neurologic Neurologic: Denies headache(s), paresthesias or weakness EXAM Physical Exam Const Vital Signs: 10/14/22 23:45 10/14/22 23:51 10/15/22 01:45 Temperature 96.8 F L Temperature Source Temporal Pulse Rate 96 81 Respiratory Rate 18 16 Respiratory Effort Short of Breath Respiratory Pattern Normal Blood Pressure 134/73 H 139/62 H Blood Pressure Mean 93 Pulse Ox 98 100 Oxygen Delivery Method Room Air Positive well nourished and well developed General Appearance ED: well developed and NAD HEENT Reports moist mucous membranes normocephalic and atraumatic Eyes PERRL, EOMs intact bilaterally and conjunctivae normal General Eye ED: Yes normal appearance of both eyes Neck no lymphadenopathy and supple General: Negative for tenderness Chest Wall Chest: Negative for tenderness Resp normal respiratory effort and normal air movement Effort and Inspection: symmetric chest movement; Negative for respiratory distress Cardio regular rate, regular rhythm and no murmurs Peripheral Pulses: pulses 2+ throughout GI normal to inspection, nondistended, normoactive bowel sounds GI Narrative: Mild tenderness left upper abdomen to the side, there is no rash. Negative Quiles's or McBurney's tenderness. Palpation: Negative for guarding or rebound tenderness present Back/Spine no CVA tenderness and no thoracic nor lumbar tenderness Back/Spine Narrative: No rash Extremity normal to inspection General Extremety ED: Negative for edema or tenderness General Extremity: Negative for edema Neuro oriented x3 and no sensory deficits noted Sensorium / Orientation: awake and alert Skin no rashes or lesions noted and no wounds MDM MDM MDM Narrative Medical decision making narrative: Interventions / MDM: Differential diagnosis: Kidney stones, nonspecific abdominal pain Diagnosis considered but do not suspect: Shingles, however no rash My EKG interpretation: N/A Imaging independently reviewed and interpreted by myself: CT abdomen pelvis: Left nephrolithiasis with no obstructive uropathy. No other acute findings. External documents reviewed: N/A Test considered but not ordered:N/A ED course: Patient nontoxic, left side abdominal flank pain. Renal stone protocol with her history. She given Toradol. Labs White count 12.1 liver and signs and lipase are urine negative for infection or blood. CT scan nonobstructive kidney stone. Feeling better on reevaluation abdomen soft. She will monitor for rash, she will continue NSAIDs at home. Outpatient follow-up with return precautions. All questions were answered. Re-evaluation: stable Disposition discussed with patient/family/significant other: Patient and significant other Case discussed with consulting clinician: N/A Lab Data Attestation: I reviewed the patient's lab results. Labs: Laboratory Results - last 24 hr 10/15/22 10/15/22 10/15/22 00:40 00:40 00:55 WBC 12.3 H RBC 4.34 Hgb 12.8 Hct 39.8 MCV 91.7 MCH 29.5 MCHC 32.2 RDW Std Deviation 48.6 H RDW Coeff of Kaushik 14.4 Plt Count 409 MPV 9.8 Immature Gran % (Auto) 0.300 Neut % (Auto) 59.5 Lymph % (Auto) 30.4 [place] % (Auto) 7.6 Eos % (Auto) 1.6 Baso % (Auto) 0.6 Absolute Neuts (auto) 7.3 Absolute Lymphs (auto) 3.73 Nucleated RBC % 0 Sodium 137 Potassium 4.5 Chloride 107 Carbon Dioxide 27.0 Anion Gap 3 L BUN 16 Creatinine 0.80 Estim Creat Clear Calc 61.37 Est GFR (MDRD) Af Amer 96 Est GFR (MDRD) Non-Af 80 BUN/Creatinine Ratio 20.0 Glucose 283 H Calcium 9.3 Total Bilirubin 0.10 L AST 16 ALT 20 Alkaline Phosphatase 88 Total Protein 7.0 Albumin 3.2 Globulin 3.8 Albumin/Globulin Ratio 0.8 L Lipase 24 Urine Color Yellow Urine Clarity Clear Urine pH 6.0 Ur Specific [place] 1.020 Urine Protein 15 H Urine Glucose (UA) 1000 H Urine Ketones Negative Urine Occult Blood Negative Urine Nitrite Negative Urine Bilirubin Negative Urine Urobilinogen Normal Ur Leukocyte Esterase Negative Urine RBC 0 SEEN Urine WBC 0-5 SEEN Ur Squamous Epith Cells 0-5 SEEN Urine Bacteria RARE Urine Mucus 0 SEEN Radiography Diagnostic Testing: Clinical Impression(s) from Imaging Studies Abdomen/Pelvis CT 10/15/22 00:15 IMPRESSION: There is nonobstructive stone in the left kidney measures 4 mm. Electronically Signed: Javier Chin MD at 1:20 EDT Reading Location ID and State: [address] [place] [address] Tel , Service support , Discharge Plan Triage Chief Complaint: Flank Pain ED Provider: Wayne Nunez Dx/Rx/DC Orders Clinical Impression: Acute left flank pain, DM type 2 (diabetes mellitus, type 2), Left nephrolithiasis Instructions: ED Flank Pain, Uncertain Cause Prescriptions: No Action aspirin [Adult Low Dose Aspirin] 81 mg tablet,delayed release (DR/EC) 81 mg PO DAILY acetaminophen [Tylenol] 325 mg capsule 325 mg PO Q4H PRN (Reason: Pain Or Fever) oxybutynin chloride 10 MG tablet extended release 24hr 10 mg PO DAILY Label Comments: urine retention pravastatin 40 MG tablet 40 mg PO DAILY Label Comments: cholestrol metformin 1,000 MG tablet 1,000 mg PO BID Label Comments: diabetes hydrochlorothiazide 25 MG tablet 25 mg PO DAILY Label Comments: water pill lisinopril 40 MG tablet 40 mg PO DAILY Label Comments: blood pressure fluoxetine 20 MG capsule 20 mg PO DAILY Label Comments: depression glipizide 10 MG tablet extended release 24hr 10 mg PO DAILY semaglutide 1 MG/0.75 ML pen injector 1 mg SQ MO Rx Instructions: takes on mondays insulin lispro 100 UNIT/ML insulin pen 10 unit SQ TIDCM insulin glargine 100 UNITS/ML insulin pen 50 units SQ QHS Label Comments: Inject 15 Units subcutaneously daily at bedtime. meclizine 25 mg tablet 25 mg PO TID PRN (Reason: dizziness) Qty: 20 0RF Primary Care Provider: Sourav Forbes Referrals: Sourav Forbes MD [Primary Care Provider] - 3-5 Days if not improving Activity Restrictions/Additional Instructions: Lab stable, glucose 283. Urine negative for infection. CT scan 4 mm left stone in your kidneys. This does not cause problems unless it moves out. Monitor for rash. Use Tylenol or ibuprofen as follow-up with your doctor. Return if worsening symptoms. Disposition Disposition: Home, Self Care Discharge Date/Time: 10/15/22 01:52
[2022-10-15 00:42] LABS: Absolute Lymphocyte Count 3.73 X10^3/uL (0.83-4.51); Absolute Neutrophil Count 7.3 X10^3/uL (2.0-7.7); Basophil# 0.07 X10^3/uL; Basophil% 0.6 % (0-1); Eosinophils% 1.6 % (0-5); Hematocrit 39.8 % (37-47); Hemoglobin 12.8 g/dL (12.0-15.0); Lymphocyte # 3.73 X10^3/ul (0.83-4.51); Lymphocyte % 30.4 % (19-41); Mean Corp Hgb Conc 32.2 g/dL (32-36); Mean Corpuscular Hgb 29.5 pg (27.0-32.0); Mean Corpuscular Volume 91.7 fL (81-99); Mean Platelet Vol. 9.8 fl (6.2-12.0); Monocyte# 0.93 X10^3/uL; Monocyte% 7.6 % (0-10); NRBC Flagged by Analyzer 0 % (0-5); Neutrophil % 59.5 % (47-70); Platelet Count 409 K/mm3 (150-450); RBC Distribution Width CV 14.4 % (11.6-14.6); RBC Distribution Width SD 48.6 fl (35.1-43.9); Red Blood Count 4.34 M/mm3 (4.2-5.4); White Blood Count 12.3 K/mm3 (4.4-11.0)
[2022-10-15] MEDS: 0.9% Normal Saline 1,000 ML 150 ML IV (00:47)
[2022-10-15] MEDS: Ketorolac 15 MG/ML Vial IV (00:48)
[2022-10-15 00:58] LABS: ALB/GLOB Ratio 0.8 RATIO (0.9-2.4); AST(SGOT) 16 U/L (15-37); Alanine Aminotransfer ALT/SGPT 20 U/L (13-56); Albumin, Serum 3.2 g/dL (3.2-5.0); Alkaline Phosphatase 88 U/L (45-117); Anion Gap 3 (5-15); BUN 16 mg/dL (7-18); Calcium,Total 9.3 mg/dL (8.5-10.1); Chloride 107 mmol/L (98-107); EST Glomerular Filtration Rate 80 mL/min (>60); Est Glom Filt Rate - Afr Amer 96 mL/min (>60); Estimated Creatinine Clearance 61.37 ml/min; Globulin 3.8 g/dL (2.2-4.2); Glucose 283 mg/dL (74-106); Lipase 24 U/L (13-75); Potassium 4.5 mmol/L (3.5-5.1); Sodium Level 137 mmol/L (136-145)
[2022-10-15 01:03] LABS: Mucous, Urine 0 SEEN /hpf (<or=2+); Red Blood Cells-Urine 0 SEEN /hpf (0-5)
[2022-10-15 01:07] LABS: Color, Urine Yellow (Yellow); Glucose, Dipstick 1000 mg/dl (Normal); Ketone-Dipstick Negative (Negative); Leukocyte Esterase-Dipstick Negative /ul (Negative); Nitrite-Dipstick Negative (Negative); Occult Blood-Urine Negative /ul (Negative); Protein-Dipstick 15 mg/dl (Negative); Urine Bilirubin Dipstick Negative (Negative); Urine Clarity Clear (Clear); Urine Urobilinogen Normal (Normal)
[2022-10-15 01:14] LABS: Bacteria RARE /hpf (None Seen); Squamous Epithelial Cells - UA 0-5 SEEN /hpf (5-10); White Blood Cells 0-5 SEEN /hpf (0-5)
[2022-10-15 01:45] VITALS: BP 139/62; PULSE 81; RESP 16; O2SAT 100
== END 2022-10-15 01:52 | disposition home or self-care (01) ==
PROVIDERS: Emergency Provider Emergency Medicine; PCP Internal Medicine; Visit Provider Emergency Medicine
DX: N20.0 Calculus of kidney (principal); E11.9 Type 2 diabetes mellitus without complications; Z79.4 Long term (current) use of insulin; I10 Essential (primary) hypertension; E78.00 Pure hypercholesterolemia, unspecified; F32.A Depression, unspecified; Z79.899 Other long term (current) drug therapy; Z79.84 Long term (current) use of oral hypoglycemic drugs; Z79.85 Long-term (current) use of injectable non-insulin antidiabetic drugs; Z79.82 Long term (current) use of aspirin
CPT/HCPCS: 74176; 80053; 81001; 83690; 85025; 96361; 96374; 99283; J7030; A4216

== ENCOUNTER 2023-11-06 16:51 | Emergency (ER) | payer MEDICARE, SELFPAY ==
[2023-11-06 16:52] VITALS: BP 180/69; PULSE 88; RESP 18; TEMP 36; O2SAT 99; BMI 43.5
--- NOTE | 2023-11-06 18:27 | CT_ITS ---
EXAMINATION : Head CT w/out contrast HISTORY : headache, HTN COMPARISON : None. TECHNIQUE : Multiple contiguous axial images were obtained from the skull base to the vertex without intravenous contrast. A radiation dose optimization technique was used for this scan. FINDINGS : The ventricles and sulci are normal in size. There is no evidence for acute intracranial hemorrhage, mass effect, or midline shift. There is no extra-axial fluid collection. There is normal li-white differentiation, without CT evidence of acute ischemia or infarct. The skull base and calvarium are unremarkable. The orbits are unremarkable. The paranasal sinuses are clear. The mastoid air cells are well-aerated. The soft tissues are unremarkable. CT/Brain/Head without Contrast IMPRESSION: No acute intracranial abnormality. Electronically Signed: Sarabjit Ireland MD at 20:17 EDT ,
--- NOTE | 2023-11-06 18:28 | EDS_ITS ---
HPI History of Present Illness Chief Complaint: Hypertension Detail of Chief Complaint: High blood pressure Informant: patient Narrative Narrative: Patient presents with hypertension that she noticed yesterday. Patient states that she is been having headaches for about 4 to 5 days. She is checked her blood pressure yesterday and was elevated and was elevated again today. Headaches have been off-and-on but when she gets them Tylenol does not seem to help. Currently her headaches 4 out of 10. She denies chest pain or shortness of breath. She denies recent illness. She denies urinary symptoms. No falls or head injuries. Patient's blood pressure normally is well-controlled on her hydrochlorothiazide. [facility] Medical History Arthritis Biliary dyskinesia Chest pain Depression DM type 2 (diabetes mellitus, type 2) High cholesterol HTN (hypertension), benign Obesity Sleep apnea Home Medications ?Medication ?Instructions ?Recorded ?Last Taken ?Type fluoxetine 20 mg capsule 20 mg PO DAILY depression 03/17/16 Unknown History hydrochlorothiazide 25 mg tablet 25 mg PO DAILY water pill 03/17/16 Unknown History lisinopril 40 mg tablet 40 mg PO DAILY blood pressure 03/17/16 07/06/20 History metformin 1,000 mg tablet 1,000 mg PO BID diabetes 03/17/16 Unknown History oxybutynin chloride 10 mg 10 mg PO DAILY bladder 03/17/16 Unknown History tablet,extended release 24 hr pravastatin 40 mg tablet 40 mg PO DAILY cholesterol 03/17/16 Unknown History glipizide 10 mg tablet, extended 10 mg PO DAILY diabetes 12/11/18 Unknown History release 24 hr semaglutide 1 mg/dose (2 mg/1.5 1 mg SQ MO weight loss 08/14/19 Unknown History mL) subcutaneous pen injector acetaminophen 325 mg capsule 325 mg PO Q4H PRN Pain Or Fever 01/28/20 Unknown History (Tylenol) aspirin 81 mg tablet,delayed 81 mg PO DAILY 01/28/20 Unknown History release (Adult Low Dose Aspirin) insulin glargine 100 unit/mL (3 50 units SQ QHS 10/08/20 Unknown History mL) subcutaneous pen insulin lispro 100 unit/mL 10 unit SQ TIDCM 10/08/20 Unknown History subcutaneous pen meclizine 25 mg tablet 25 mg PO TID PRN dizziness #20 tabs 07/02/21 Unknown Rx Allergy/AdvReac Type Severity Reaction Status Date / Time No Known Allergies Allergy Verified 11/06/23 16:54 Family History Mother Hypertension Heart disease Surgical History No history of previous surgery Social History Smoking Status: Never smoker alcohol intake: never substance use type: does not use ROS ROS ED Review of Systems ROS Unobtainable: other Constitutional Constitutional ED: Reports lethargy; Denies chills, fever(s), sweats or weight loss Eyes Eyes: Denies blurry vision, change in vision or diplopia ENT ENT ED: Denies rhinorrhea or sore throat Cardiovascular Cardiovascular: Denies chest pain, orthopnea or racing heartbeat Respiratory/Chest Respiratory/Chest: Denies cough, dyspnea, dyspnea on exertion, orthopnea or sputum Gastrointestinal Gastrointestinal: Denies abdominal pain, diarrhea, nausea or vomiting Genitourinary Genitourinary ED: Denies dysuria, hematuria or urinary frequency Musculoskeletal Musculoskeletal: Denies arthralgias, back pain, myalgias or neck pain Integumentary Denies abscess, Abrasions or rash Neurologic Neurologic: Reports headache(s); Denies weakness Psychiatric Psychiatric: Denies anxiety, depression or suicidal thoughts Endocrine Endocrinology: Denies polydipsia, polyphagia or polyuria Hematologic/Lymphatic Hematologic/Lymphatic: Denies easy bleeding, easy bruising or lymphadenopathy Allergic/Immunologic Allergic/Immunologic ED: Denies mouth swelling, tongue swelling or urticaria EXAM Physical Exam Const Vital Signs: 11/06/23 16:52 11/06/23 18:51 11/06/23 19:58 Temperature 96.8 F L Temperature Source Temporal Pulse Rate 88 75 Respiratory Rate 18 19 H Respiratory Effort Normal Respiratory Pattern Normal Blood Pressure 180/69 H 118/68 Blood Pressure Mean 106 84 Pulse Ox 99 Oxygen Delivery Method Room Air 11/06/23 20:00 Temperature Temperature Source Pulse Rate 72 Respiratory Rate 16 Respiratory Effort Respiratory Pattern Blood Pressure 139/78 H Blood Pressure Mean 98 Pulse Ox 97 Oxygen Delivery Method Room Air Positive well nourished and well developed General Appearance ED: well developed and NAD HEENT Reports TM's clear and moist mucous membranes normocephalic and atraumatic; Negative for trauma or tenderness Tympanic Membrane ED: Yes TM's clear Eyes PERRL and EOMs intact bilaterally General Eye ED: Negative for pale conjunctiva or scleral icterus Neck no lymphadenopathy, supple and no JVD General: Negative for tenderness Chest Wall inspection of chest normal and palpation of chest normal Chest: Negative for tenderness Resp normal respiratory effort and clear to auscultation bilaterally Effort and Inspection: Negative for respiratory distress or pain with movement Auscultation: Negative for rhonchi, wheezes or diminished lung sounds Cardio regular rate, regular rhythm, S1 normal heart sound, S2 normal heart sound and no murmurs Peripheral Pulses: pulses 2+ throughout GI normal to inspection, nondistended, normoactive bowel sounds, soft to palpation, non-tender, non-distended and no masses Back/Spine no CVA tenderness and no thoracic nor lumbar tenderness Extremity normal to inspection General Extremety ED: Negative for edema General Extremity: Negative for edema Neuro oriented x3, CN's II-XII intact bilaterally, no sensory deficits noted and gait normal Sensorium / Orientation: awake, alert, oriented to person, oriented to place and oriented to time Motor Exam: strength 5/5 throughout and strength abnormal Psych mental status grossly normal Skin no rashes or lesions noted and no wounds MDM MDM MDM Narrative Medical decision making narrative: Patient presents with headache and hypertension. IV line established. EKG obtained arrival showed a sinus rhythm with ventricular rate of 74 bpm with no acute ST segment changes noted. CBC with differential white count of 12.2 with hemoglobin 13.1 and platelet count of 464. Chemistries unremarkable. BUN 16 and creatinine 0.63. Troponin was normal at 3. Urinalysis was normal. I did perform a CT scan of the brain without contrast given the elevated blood pressures and complaint of headache and this was negative for intracranial hemorrhage or other acute process. On repeat blood pressures her systolics have been in the 130s to 140s and diastolics in the 90s. This point recommended she just monitor her blood pressure and follow-up with her primary care physician within the next 5 to 7 days. Lab Data Labs: Laboratory Results - last 24 hr 11/06/23 11/06/23 19:40 20:10 WBC 12.2 H RBC 4.46 Hgb 13.1 Hct 40.5 MCV 90.8 MCH 29.4 MCHC 32.3 RDW Std Deviation 42.9 RDW Coeff of Kaushik 12.9 Plt Count 464 H MPV 10.3 Immature Gran % (Auto) 0.200 Neut % (Auto) 60.4 Lymph % (Auto) 31.2 [place] % (Auto) 6.3 Eos % (Auto) 1.4 Baso % (Auto) 0.5 Absolute Neuts (auto) 7.4 Absolute Lymphs (auto) 3.82 Nucleated RBC % 0 Sodium 138 Potassium 3.8 Chloride 104 Carbon Dioxide 30.0 Anion Gap 4 L BUN 16 Creatinine 0.63 Estim Creat Clear Calc 113.65 Est GFR (MDRD) Af Amer 127 Est GFR (MDRD) Non-Af 105 BUN/Creatinine Ratio 25.6 H Glucose 248 H Calcium 9.7 Troponin I High Sens 3 Urine Color Yellow Urine Clarity Clear Urine pH 6.5 Ur Specific [place] 1.010 Urine Protein Negative Urine Glucose (UA) 1000 H Urine Ketones Negative Urine Occult Blood Negative Urine Nitrite Negative Urine Bilirubin Negative Urine Urobilinogen Normal Ur Leukocyte Esterase 100 H Radiography Diagnostic Testing: Clinical Impression(s) from Imaging Studies Brain CT 11/06/23 18:27 IMPRESSION: No acute intracranial abnormality. Electronically Signed: Sarabjit Ireland MD at 20:17 EDT , Discharge Plan Triage Chief Complaint: Hypertension ED Provider: Oralia Hernandez Dx/Rx/DC Orders Clinical Impression: Hypertension Instructions: ED Hypertension, Established Prescriptions: No Action aspirin [Adult Low Dose Aspirin] 81 mg tablet,delayed release (DR/EC) 81 mg PO DAILY acetaminophen [Tylenol] 325 mg capsule 325 mg PO Q4H PRN (Reason: Pain Or Fever) oxybutynin chloride 10 MG tablet extended release 24hr 10 mg PO DAILY Patient Comments: urine retention pravastatin 40 MG tablet 40 mg PO DAILY Patient Comments: cholestrol metformin 1,000 MG tablet 1,000 mg PO BID Patient Comments: diabetes hydrochlorothiazide 25 MG tablet 25 mg PO DAILY Patient Comments: water pill lisinopril 40 MG tablet 40 mg PO DAILY Patient Comments: blood pressure fluoxetine 20 MG capsule 20 mg PO DAILY Patient Comments: depression glipizide 10 MG tablet extended release 24hr 10 mg PO DAILY semaglutide 1 MG/0.75 ML pen injector 1 mg SQ MO Rx Instructions: takes on mondays insulin lispro 100 UNIT/ML insulin pen 10 unit SQ TIDCM insulin glargine 100 UNITS/ML insulin pen 50 units SQ QHS Patient Comments: Inject 15 Units subcutaneously daily at bedtime. meclizine 25 mg tablet 25 mg PO TID PRN (Reason: dizziness) Qty: 20 0RF Primary Care Provider: Suorav oFrbes Referrals: Sourav Forbes MD [Primary Care Provider] - 5-7 Days Print Language: Indonesian Disposition Disposition: Home, Self Care
[2023-11-06 18:51] VITALS: BP 118/68; PULSE 75; RESP 19
[2023-11-06 19:57] LABS: Absolute Lymphocyte Count 3.82 X10^3/uL (0.83-4.51); Absolute Neutrophil Count 7.4 X10^3/uL (2.0-7.7); Basophil# 0.06 X10^3/uL; Basophil% 0.5 % (0-1); Eosinophil# 0.17 X10^3/uL; Eosinophils% 1.4 % (0-5); Hematocrit 40.5 % (37-47); Hemoglobin 13.1 g/dL (12.0-15.0); Lymphocyte # 3.82 X10^3/ul (0.83-4.51); Lymphocyte % 31.2 % (19-41); Mean Corp Hgb Conc 32.3 g/dL (32-36); Mean Corpuscular Hgb 29.4 pg (27.0-32.0); Mean Corpuscular Volume 90.8 fL (81-99); Mean Platelet Vol. 10.3 fl (6.2-12.0); Monocyte# 0.77 X10^3/uL; Monocyte% 6.3 % (0-10); NRBC Flagged by Analyzer 0 % (0-5); Neutrophil # 7.38 X10^3/uL (2.7-7.7); Neutrophil % 60.4 % (47-70); Platelet Count 464 K/mm3 (150-450); RBC Distribution Width CV 12.9 % (11.6-14.6); RBC Distribution Width SD 42.9 fl (35.1-43.9); Red Blood Count 4.46 M/mm3 (4.2-5.4); White Blood Count 12.2 K/mm3 (4.4-11.0)
[2023-11-06 20:00] VITALS: BP 139/78; PULSE 72; RESP 16; O2SAT 97
[2023-11-06 20:14] LABS: Bacteria 0 SEEN /hpf (None Seen); Mucous, Urine 0 SEEN /hpf (<or=2+); Red Blood Cells-Urine 0 SEEN /hpf (0-5)
[2023-11-06 20:15] LABS: Color, Urine Yellow (Yellow); Glucose, Dipstick 1000 mg/dl (Normal); Ketone-Dipstick Negative (Negative); Leukocyte Esterase-Dipstick 100 /ul (Negative); Nitrite-Dipstick Negative (Negative); Occult Blood-Urine Negative /ul (Negative); Protein-Dipstick Negative (Negative); Urine Bilirubin Dipstick Negative (Negative); Urine Clarity Clear (Clear); Urine Urobilinogen Normal (Normal); Urine pH 6.5 (5.0 - 8.0)
[2023-11-06 20:23] LABS: Anion Gap 4 (5-15); BUN 16 mg/dL (7-18); BUN/Creat Ratio 25.6 RATIO (10-20); Calcium,Total 9.7 mg/dL (8.5-10.1); Chloride 104 mmol/L (98-107); Creatinine, Serum 0.63 mg/dL (0.55-1.02); EST Glomerular Filtration Rate 105 mL/min (>60); Est Glom Filt Rate - Afr Amer 127 mL/min (>60); Estimated Creatinine Clearance 113.65 ml/min; Glucose 248 mg/dL (74-106); Potassium 3.8 mmol/L (3.5-5.1); Sodium Level 138 mmol/L (136-145); Troponin-I HS 3 pg/mL (3.0-54.0)
[2023-11-06 20:34] VITALS: BP 140/90
[2023-11-06 20:40] VITALS: BP 137/75; PULSE 78; RESP 16; TEMP 36.6; O2SAT 97
[2023-11-06 20:49] LABS: Squamous Epithelial Cells - UA 0-5 SEEN /hpf (5-10); White Blood Cells 5-10 SEEN /hpf (0-5)
== END 2023-11-06 20:41 | disposition home or self-care (01) ==
PROVIDERS: Emergency Provider Emergency Medicine; PCP Internal Medicine; Visit Provider Emergency Medicine
DX: I10 Essential (primary) hypertension (principal); E11.9 Type 2 diabetes mellitus without complications; Z79.4 Long term (current) use of insulin; R51.9 Headache, unspecified; E78.00 Pure hypercholesterolemia, unspecified; F32.A Depression, unspecified; Z79.899 Other long term (current) drug therapy; Z79.84 Long term (current) use of oral hypoglycemic drugs; Z79.82 Long term (current) use of aspirin
CPT/HCPCS: 36415; 70450; 80048; 81001; 84484; 85025; 93005; 99283; J7030; A4216

== ENCOUNTER 2023-12-20 22:13 | Emergency (ER) | payer MEDICARE, SELFPAY ==
[2023-12-20 22:14] VITALS: BP 125/71; PULSE 100; RESP 18; TEMP 36.7; O2SAT 97; BMI 42.2
--- NOTE | 2023-12-20 22:27 | EKG12_ITS ---
Test Reason : REPEAT Blood Pressure : / mmHG Vent. Rate : 082 BPM Atrial Rate : 082 BPM P-R Int : 130 ms QRS Dur : 082 ms QT Int : 390 ms P-R-T Axes : -01 045 053 degrees QTc Int : 455 ms Normal sinus rhythm Normal ECG Confirmed by Kin Rodriguez ([id number]), tape editor AMARILIS GEORGE ([id number]) on 12/22/2023 7:46:28 AM Referred By: Confirmed By:Kin Rodriguez
--- NOTE | 2023-12-20 22:28 | ED.VIS.GI ---
HPI HPI - GI History of Present Illness Chief Complaint: Abd Pain Narrative Narrative: This 53-year-old female presenting with epigastric pain. She states that she has had this for about 3 years. She reports that it was believed to be her gallbladder which is removed however she continues to have pain. She states she does not have a diagnosis of acid reflux/GERD. She does state that last night she had macaroni and cheese, watermelon, sauerkraut for dinner. She reports that this morning she woke up with the epigastric discomfort. She had tomatoes and onions and vinegar early on and states she ate spaghetti tonight for dinner which really started making the pain worse. Patient does not report any nausea. She states she had 2 episodes of diarrhea today. No fevers or chills. She does admit that she feels a little bit short of breath. She denies a cardiac history. Patient does have a history of diabetes, hypertension, hyperlipidemia, obesity. [facility] Medical History Migraine Biliary dyskinesia Sleep apnea Depression Arthritis High cholesterol Obesity Chest pain DM type 2 (diabetes mellitus, type 2) HTN (hypertension), benign Home Medications ?Medication ?Instructions ?Recorded ?Last Taken ?Type fluoxetine 20 mg capsule 40 mg PO DAILY depression 03/17/16 Unknown History hydrochlorothiazide 25 mg tablet 25 mg PO DAILY water pill 03/17/16 Unknown History lisinopril 40 mg tablet 40 mg PO DAILY blood pressure 03/17/16 07/06/20 History metformin 1,000 mg tablet 1,000 mg PO BID diabetes 03/17/16 Unknown History oxybutynin chloride 10 mg 10 mg PO QHS bladder 03/17/16 Unknown History tablet,extended release 24 hr pravastatin 40 mg tablet 40 mg PO DAILY cholesterol 03/17/16 Unknown History acetaminophen 325 mg capsule 325 mg PO Q4H PRN Pain Or Fever 01/28/20 Unknown History (Tylenol) aspirin 81 mg tablet,delayed 81 mg PO DAILY 01/28/20 Unknown History release (Adult Low Dose Aspirin) dulaglutide 4.5 mg/0.5 mL 4.5 mg subcut QWEEK 12/20/23 Unknown History subcutaneous pen injector insulin aspart 13 unit subcut BID 12/20/23 Unknown History (niacinamide)(U-100) 100 unit/mL(3 mL) subcutaneous pen (Fiasp FlexTouch U-100 Insulin) insulin degludec 100 unit/mL (3 46 unit subcut QHS 12/20/23 Unknown History mL) subcutaneous pen meloxicam 15 mg tablet 15 mg PO DAILY 12/20/23 Unknown History oxybutynin chloride 15 mg 15 mg PO DAILY 12/20/23 Unknown History tablet,extended release 24 hr topiramate 25 mg tablet 25 mg PO BID 12/20/23 Unknown History omeprazole 40 mg capsule,delayed 40 mg PO DAILY #30 caps 12/21/23 Unknown Rx release sucralfate 100 mg/mL oral 10 ml PO BID PRN epigastric pain 12/21/23 Unknown Rx suspension (Carafate) #300 mL Allergy/AdvReac Type Severity Reaction Status Date / Time No Known Allergies Allergy Verified 12/20/23 22:17 Family History Mother Hypertension Heart disease Surgical History No history of previous surgery Social History Smoking Status: Never smoker alcohol intake: never substance use type: does not use ROS ROS ED Constitutional Constitutional ED: Denies chills, fever(s) or sweats Eyes Eyes: Denies blurry vision or change in vision ENT ENT ED: Denies ear pain or sore throat Cardiovascular Cardiovascular: Denies chest pain, palpitations or racing heartbeat Respiratory/Chest Respiratory/Chest: Denies cough, dyspnea or sputum Gastrointestinal Gastrointestinal: Reports abdominal pain and diarrhea; Denies constipation, nausea or vomiting Genitourinary Genitourinary ED: Denies dysuria, hematuria or urinary frequency Musculoskeletal Musculoskeletal: Denies arthralgias, myalgias or neck pain Integumentary Denies abscess, Abrasions or rash Neurologic Neurologic: Denies headache(s), paresthesias or weakness Psychiatric Psychiatric: Denies anxiety, depression, suicidal ideation or suicidal thoughts Endocrine Endocrinology: Denies polydipsia or polyuria EXAM Physical Exam Const Vital Signs: 12/20/23 22:14 12/21/23 00:14 12/21/23 01:09 Temperature 98.1 F Temperature Source Temporal Pulse Rate 100 72 75 Respiratory Rate 18 18 Blood Pressure 125/71 H 115/51 L 138/66 H Blood Pressure Mean 89 72 Pulse Ox 97 94 Oxygen Delivery Method Room Air Positive well nourished General Appearance ED: NAD; Negative for pallor HEENT Reports moist mucous membranes normocephalic and atraumatic Eyes PERRL and EOMs intact bilaterally Neck no lymphadenopathy Resp normal respiratory effort and clear to auscultation bilaterally Auscultation: Negative for rales, rhonchi or wheezes Cardio regular rate and regular rhythm GI Palpation: tender epigastric and RLQ Extremity full ROM Neuro CN's II-XII intact bilaterally Sensorium / Orientation: alert Psych mental status grossly normal Skin no wounds General Skin Exam: Negative for jaundice or pallor MDM MDM MDM Narrative Medical decision making narrative: Patient presenting with epigastric abdominal pain which has been present all day since she ate breakfast. It worsened after eating spaghetti tonight. Differential includes colitis, diverticulitis, gastritis, pancreatitis, constipation, appendicitis, UTI, pyelonephritis, calculi, ureteral calculi, obstruction, malignancy, dehydration, electrolyte abnormalities. Patient is also stating that she has some dyspnea which is present and for this reason we will add on a cardiac workup including EKG, chest x-ray, high-sensitivity troponin. Since she has had this all day I do not believe she will need a delta troponin. Patient will be medicated with a GI cocktail, IV Pepcid, normal saline. On initial reevaluation the patient just received a GI cocktail. Lab work returned and she has a leukocytosis of 15.3. Hemoglobin stable at 14. Platelets are normal at 398. Renal function and electrolytes unremarkable. High-sensitivity troponin less than 3. Lipase 17. LFTs are normal. EKG interpreted by myself shows a sinus rhythm at 91 bpm without sign ischemic change or dysrhythmia. Chest x-ray interpreted by myself shows no acute cardiopulmonary process. The radiologist interprets this and agrees. Reevaluated the patient again at 1150 and she still having pain in her epigastric region. At this point I gave her morphine and Zofran. We will obtain a CT of the abdomen pelvis as well. CT of the abdomen pelvis shows nothing acute but does identify a pedunculated leiomyoma measuring 6 cm arising from the fundus of the uterus. There is a small fat-containing periumbilical hernia. At this point I believe her leukocytosis is reactive. At 12:55 AM the patient complained of chest pain again to the nurse and I repeat EKG was ordered. Her EKG is essentially unchanged and shows a sinus rhythm at 82 bpm without sign of ischemic change or dysrhythmia. Patient was given a nitroglycerin to see if this would help and it did relieve some of the pain. I still do believe this is more of a gastritis/GERD. I reviewed the medical history and she was seen by GI on 09/01/2020 and was started on Protonix 40 mg daily. It does appear that prior to that after her gallbladder surgery she was on omeprazole for 3 weeks and stopped taking it. I counseled her that it will take weeks for this to start helping but she also has to avoid trigger foods. She reports eating tomatoes, onions, drinking 7-Up and Sprite, pizza. I recommend that she discontinue eating those types of foods. I will discharge her with some paperwork to help her deal with her gastritis/GERD. She can follow-up with her GI specialist. All questions were answered. Impression: 1. Gastritis 2. Chest pain?noncardiac 3. Dyspnea Lab Data Labs: Laboratory Results - last 24 hr 12/20/23 12/21/23 22:53 00:12 WBC 15.3 H RBC 4.81 Hgb 14.0 Hct 43.8 MCV 91.1 MCH 29.1 MCHC 32.0 RDW Std Deviation 44.2 H RDW Coeff of Kaushik 13.2 Plt Count 398 MPV 10.0 Immature Gran % (Auto) 0.300 Neut % (Auto) 60.8 Lymph % (Auto) 30.8 [place] % (Auto) 6.4 Eos % (Auto) 1.2 Baso % (Auto) 0.5 Absolute Neuts (auto) 9.3 H Absolute Lymphs (auto) 4.70 H Nucleated RBC % 0 Sodium 132 L Potassium 4.8 Chloride 104 Carbon Dioxide 20.0 L Anion Gap 8 BUN 17 Creatinine 0.85 Estim Creat Clear Calc 82.71 Est GFR (MDRD) Af Amer 90 Est GFR (MDRD) Non-Af 74 BUN/Creatinine Ratio 20.0 Glucose 198 H Calcium 10.0 Total Bilirubin 0.10 L Direct Bilirubin 0.09 AST 7 L ALT 15 Alkaline Phosphatase 79 Troponin I High Sens < 3 L Total Protein 5.6 L Albumin 2.5 L Globulin 3.1 Lipase 17 Radiography Diagnostic Testing: Clinical Impression(s) from Imaging Studies Chest X-Ray 12/20/23 23:14 IMPRESSION: No radiographic evidence of acute cardiopulmonary disease. Electronically Signed: Kin Quan MD at 23:37 EDT , Abdomen/Pelvis CT 12/21/23 00:00 IMPRESSION: 1. No acute abdominal pelvic abnormality. 2. Pedunculated leiomyoma measuring 6 cm arising from the fundus of the uterus. 3. Fatty liver. 4. Cholecystectomy. 5. Small fat-containing paraumbilical hernia. No bowel involvement. Electronically Signed: Kin Quan MD at 0:46 EDT , Discharge Plan Triage Chief Complaint: Abd Pain ED Provider: Zackery Potter Dx/Rx/DC Orders Instructions: GERD Lifestyle Changes, ED Chest Pain, Noncardiac, ED GERD (Adult), ED Gastritis (Adult) Prescriptions: New omeprazole 40 mg capsule,delayed release(DR/EC) 40 mg PO DAILY Qty: 30 0RF sucralfate [Carafate] 100 mg/mL suspension 10 ml PO BID PRN (Reason: epigastric pain) Qty: 300 0RF No Action aspirin [Adult Low Dose Aspirin] 81 mg tablet,delayed release (DR/EC) 81 mg PO DAILY acetaminophen [Tylenol] 325 mg capsule 325 mg PO Q4H PRN (Reason: Pain Or Fever) oxybutynin chloride 10 MG tablet extended release 24hr 10 mg PO QHS Patient Comments: urine retention pravastatin 40 MG tablet 40 mg PO DAILY Patient Comments: cholestrol metformin 1,000 MG tablet 1,000 mg PO BID Patient Comments: diabetes hydrochlorothiazide 25 MG tablet 25 mg PO DAILY Patient Comments: water pill lisinopril 40 MG tablet 40 mg PO DAILY Patient Comments: blood pressure fluoxetine 20 MG capsule 40 mg PO DAILY Patient Comments: depression topiramate 25 mg tablet 25 mg PO BID meloxicam 15 mg tablet 15 mg PO DAILY insulin degludec 100 unit/mL (3 mL) insulin pen 46 unit subcut QHS Fiasp FlexTouch U-100 Insulin 100 unit/mL (3 mL) insulin pen 13 unit subcut BID dulaglutide 4.5 mg/0.5 mL pen injector 4.5 mg subcut QWEEK oxybutynin chloride 15 mg tablet extended release 24hr 15 mg PO DAILY Primary Care Provider: Sourav Forbes Referrals: Sourav Forbes MD [Primary Care Provider] - Print Language: Frisian Disposition Disposition: Home, Self Care
[2023-12-20] MEDS: Mag Hydrox/Al Hydrox/Simeth 30 ML UDC PO (22:41)
[2023-12-20] MEDS: Lidocaine 2% Viscous15 ML UDC 15 ML PO (22:41)
[2023-12-20 23:00] LABS: Absolute Neutrophil Count 9.3 X10^3/uL (2.0-7.7); Basophil# 0.08 X10^3/uL; Basophil% 0.5 % (0-1); Eosinophil# 0.18 X10^3/uL; Eosinophils% 1.2 % (0-5); Hematocrit 43.8 % (37-47); Lymphocyte % 30.8 % (19-41); Mean Corpuscular Hgb 29.1 pg (27.0-32.0); Mean Corpuscular Volume 91.1 fL (81-99); Monocyte# 0.97 X10^3/uL; Monocyte% 6.4 % (0-10); NRBC Flagged by Analyzer 0 % (0-5); Neutrophil # 9.27 X10^3/uL (2.7-7.7); Neutrophil % 60.8 % (47-70); Platelet Count 398 K/mm3 (150-450); RBC Distribution Width CV 13.2 % (11.6-14.6); RBC Distribution Width SD 44.2 fl (35.1-43.9); Red Blood Count 4.81 M/mm3 (4.2-5.4); White Blood Count 15.3 K/mm3 (4.4-11.0)
[2023-12-20] MEDS: Famotidine 200 MG/20 ML MDV 20 MG in 0.9% Normal Saline (Pres. free 8 ML 300 MG IV (23:02)
[2023-12-20] MEDS: 0.9% Normal Saline (1000mL) 1,000 ML 999 ML IV (23:03)
--- NOTE | 2023-12-20 23:14 | RAD_ITS ---
EXAM: XR CHEST, 1 VIEW CLINICAL INDICATION: chest pain TECHNIQUE: Frontal view of the chest. COMPARISON: No relevant prior studies available. FINDINGS: LUNGS AND PLEURAL SPACES: Unremarkable. No consolidation or edema. No pneumothorax. No effusion. HEART: Unremarkable. Cardiac silhouette not enlarged. MEDIASTINUM: Central airways and mediastinal contour are unremarkable. BONES/JOINTS: Unremarkable. No acute fracture. SOFT TISSUES: Unremarkable. RAD/Chest 1 View IMPRESSION: No radiographic evidence of acute cardiopulmonary disease. Electronically Signed: Kin Quan MD at 23:37 EDT ,
[2023-12-20 23:52] LABS: Anion Gap 8 (5-15); BUN 17 mg/dL (7-18); Chloride 104 mmol/L (98-107); Creatinine, Serum 0.85 mg/dL (0.55-1.02); EST Glomerular Filtration Rate 74 mL/min (>60); Est Glom Filt Rate - Afr Amer 90 mL/min (>60); Estimated Creatinine Clearance 82.71 ml/min; Glucose 198 mg/dL (74-106); Lipase 17 U/L (13-75); Potassium 4.8 mmol/L (3.5-5.1); Sodium Level 132 mmol/L (136-145); Troponin-I HS < 3 pg/mL (3.0-54.0)
--- NOTE | 2023-12-21 | CT_ITS ---
EXAM: CT ABDOMEN AND PELVIS WITH INTRAVENOUS CONTRAST CLINICAL INDICATION: epigastric pain TECHNIQUE: Helically acquired images were obtained of the abdomen and pelvis with intravenous contrast. This CT exam was performed using one or more of the following dose reduction techniques: automated exposure control, adjustment of the mA and/or kV according to patient size, and/or use of iterative reconstruction technique. CONTRAST: 100 cc of Isovue-370 IV. RADIATION DOSE: CTDIvol = 20.33 mGy, DLP = 1329.52 mGy-cm COMPARISON: CT scan of the abdomen and pelvis without contrast 10/15/2022. FINDINGS: LOWER THORAX: Unremarkable. Lung bases are clear. No cardiomegaly. No significant pericardial effusion. ABDOMEN: LIVER: There is diffuse low-attenuation of the liver. GALLBLADDER AND BILE DUCTS: Cholecystectomy. No intra- or extrahepatic biliary ductal dilation. PANCREAS: Unremarkable. No focal cystic or solid mass. SPLEEN: Unremarkable. Normal size without focal cystic or solid mass. ADRENALS: Unremarkable. No nodules. KIDNEYS AND URETERS: Unremarkable. Normal renal size and position. No hydronephrosis. STOMACH AND BOWEL: Unremarkable. No stomach or bowel distention. No focal inflammatory change. PELVIS: APPENDIX: Normal appendix. BLADDER: Unremarkable. REPRODUCTIVE: Pedunculated leiomyoma measuring 6 cm arising from the fundus of the uterus. ABDOMEN and PELVIS: INTRAPERITONEAL SPACE: Unremarkable. No ascites or other fluid collection. No free air. BONES/JOINTS: Unremarkable. No suspicious lytic or blastic abnormality. SOFT TISSUES: Small fat-containing paraumbilical hernia. VASCULATURE: Unremarkable. Abdominal aorta is non-dilated. LYMPH NODES: Unremarkable. No enlarged lymph nodes. CT/Abdomen/Pelvis W IV Cont ONLY IMPRESSION: 1. No acute abdominal pelvic abnormality. 2. Pedunculated leiomyoma measuring 6 cm arising from the fundus of the uterus. 3. Fatty liver. 4. Cholecystectomy. 5. Small fat-containing paraumbilical hernia. No bowel involvement. Electronically Signed: Kin Quan MD at 0:46 EDT ,
[2023-12-21 00:14] VITALS: BP 115/51; PULSE 72; RESP 18; O2SAT 94
[2023-12-21] MEDS: Ondansetron 4 MG/2 ML Vial IV (00:16)
[2023-12-21] MEDS: Morphine 4 MG/ML Syringe IV (00:17)
[2023-12-21 00:36] LABS: AST(SGOT) 7 U/L (15-37); Alanine Aminotransfer ALT/SGPT 15 U/L (13-56); Albumin, Serum 2.5 g/dL (3.2-5.0); Alkaline Phosphatase 79 U/L (45-117); Bilirubin, Direct 0.09 mg/dL (0.00-0.30); Globulin 3.1 g/dL (2.2-4.2); Protein, Total 5.6 g/dL (6.4-8.2)
--- NOTE | 2023-12-21 00:57 | ED.RN ---
Family member alerted this RN that pt was having increased CP. Pt placed on monitor and called for repeat EKG. Dr. Potter notified.
--- NOTE | 2023-12-21 01:01 | EKG12_ITS ---
Test Reason : ABD PAIN Blood Pressure : / mmHG Vent. Rate : 091 BPM Atrial Rate : 091 BPM P-R Int : 134 ms QRS Dur : 078 ms QT Int : 370 ms P-R-T Axes : -03 030 016 degrees QTc Int : 455 ms Normal sinus rhythm Normal ECG Confirmed by Kin Rodriguez ([id number]), supervising editor trailer AMARILIS GEORGE ([id number]) on 12/22/2023 7:46:17 AM Referred By: Confirmed By:Kin Rodriguez
[2023-12-21 01:09] VITALS: BP 138/66; PULSE 75
[2023-12-21] MEDS: Nitroglycerin SL (ED/IMG/CATH) 0.4 MG TABLET SL (01:09)
[2023-12-21 01:27] VITALS: BP 149/73; PULSE 82; RESP 16; TEMP 36.5; O2SAT 95
== END 2023-12-21 01:36 | disposition home or self-care (01) ==
PROVIDERS: Emergency Provider Student in an Organized Health Care Education/Training Program; PCP Internal Medicine; Visit Provider Student in an Organized Health Care Education/Training Program
DX: R10.13 Epigastric pain (principal); E11.9 Type 2 diabetes mellitus without complications; Z79.4 Long term (current) use of insulin; K29.70 Gastritis, unspecified, without bleeding; I10 Essential (primary) hypertension; E78.00 Pure hypercholesterolemia, unspecified; R06.00 Dyspnea, unspecified; R07.89 Other chest pain; Z90.49 Acquired absence of other specified parts of digestive tract; F32.A Depression, unspecified; Z79.899 Other long term (current) drug therapy; Z79.84 Long term (current) use of oral hypoglycemic drugs; Z79.82 Long term (current) use of aspirin; Z79.85 Long-term (current) use of injectable non-insulin antidiabetic drugs
CPT/HCPCS: 71045; 74177; 80048; 80076; 83690; 84484; 85025; 93005; 96361; 96374; 96375; 99283; J7030; Q9967; A4216; J2405; J3490

== ENCOUNTER 2024-03-04 16:41 | Emergency (ER) | payer MEDICARE, SELFPAY ==
[2024-03-04 16:44] VITALS: BP 125/71; PULSE 94; RESP 18; TEMP 36; O2SAT 97; BMI 39.9
--- NOTE | 2024-03-04 16:47 | EDS_ITS ---
HPI History of Present Illness Chief Complaint: Hypoglycemia [facility] Medical History Migraine Biliary dyskinesia Sleep apnea Depression Arthritis High cholesterol Obesity Chest pain DM type 2 (diabetes mellitus, type 2) HTN (hypertension), benign Home Medications ?Medication ?Instructions ?Recorded ?Last Taken ?Type fluoxetine 20 mg capsule 40 mg PO DAILY depression 03/17/16 Unknown History hydrochlorothiazide 25 mg tablet 25 mg PO DAILY water pill 03/17/16 Unknown History lisinopril 40 mg tablet 40 mg PO DAILY blood pressure 03/17/16 07/06/20 History metformin 1,000 mg tablet 1,000 mg PO BID diabetes 03/17/16 Unknown History oxybutynin chloride 10 mg 10 mg PO QHS bladder 03/17/16 Unknown History tablet,extended release 24 hr pravastatin 40 mg tablet 40 mg PO DAILY cholesterol 03/17/16 Unknown History acetaminophen 325 mg capsule 325 mg PO Q4H PRN Pain Or Fever 01/28/20 Unknown History (Tylenol) aspirin 81 mg tablet,delayed 81 mg PO DAILY 01/28/20 Unknown History release (Adult Low Dose Aspirin) dulaglutide 4.5 mg/0.5 mL 4.5 mg subcut QWEEK 12/20/23 Unknown History subcutaneous pen injector insulin aspart 13 unit subcut BID 12/20/23 Unknown History (niacinamide)(U-100) 100 unit/mL(3 mL) subcutaneous pen (Fiasp FlexTouch U-100 Insulin) insulin degludec 100 unit/mL (3 46 unit subcut QHS 12/20/23 Unknown History mL) subcutaneous pen meloxicam 15 mg tablet 15 mg PO DAILY 12/20/23 Unknown History oxybutynin chloride 15 mg 15 mg PO DAILY 12/20/23 Unknown History tablet,extended release 24 hr topiramate 25 mg tablet 25 mg PO BID 12/20/23 Unknown History omeprazole 40 mg capsule,delayed 40 mg PO DAILY #30 caps 12/21/23 Unknown Rx release sucralfate 100 mg/mL oral 10 ml PO BID PRN epigastric pain 12/21/23 Unknown Rx suspension (Carafate) #300 mL Allergy/AdvReac Type Severity Reaction Status Date / Time No Known Allergies Allergy Verified 12/20/23 22:17 Family History Mother Hypertension Heart disease Surgical History No history of previous surgery Social History Smoking Status: Never smoker alcohol intake: never substance use type: does not use EXAM Physical Exam Const Vital Signs: 03/04/24 16:44 03/04/24 17:28 03/04/24 18:31 Temperature 96.8 F L Temperature Source Temporal Pulse Rate 94 84 Respiratory Rate 18 18 Respiratory Effort Normal Non-Labored Respiratory Pattern Normal Blood Pressure 125/71 H 113/69 Blood Pressure Mean 89 83 Pulse Ox 97 99 Oxygen Delivery Method Room Air Room Air MDM MDM MDM Narrative Medical decision making narrative: HISTORY OF PRESENT ILLNESS: 53-year-old female with history of hypertension, type 2 diabetes high cholesterol and obesity presents with low blood sugar. She states she took her short acting insulin 12 units and metformin at 1 PM. She then ate several carbo hydrate rich or sugar sweetened foods without any improvement blood sugars. Her blood sugars remained in the low 60s to 70s range. She notes her last long- acting insulin was taken last night at approximately 8 PM. Denies taking sulfonylureas. REVIEW OF SYSTEMS: Pertinent positives: Low blood sugar, dizziness Pertinent negatives: Headache, chest pain, palpitations, shortness of breath, cough, fever, abdominal pain, focal weakness PHYSICAL EXAM: Nursing triage notes reviewed, Vital signs reviewed Constitutional: please see mdm HENT: MMM Eyes: Pupils equal round and reactive to light, Extraocular muscles intact, no nystagmus Neck: No stridor, no JVD, full neck ROM Lungs: Clear to auscultation, No wheezing or rales. No increased work of breathing, no conversational dyspnea, no accessory muscle use, no nasal flaring. No respiratory distress noted Heart: Regular rate and rhythm, No murmurs, No rubs and No gallops, 2+ distal pulses (radial, femoral, posterior tibial) in all extremities Abdomen: Soft, there is no tenderness, rigidity, rebound or guarding, no obvious peritoneal signs, no palpable pulsatile abdominal masses, no auscultated abdominal bruit : No CVAT Extremities: No edema Neuro: Alert and oriented x3, neuro exam at baseline, cranial nerves II through XII are intact. No pain with extraocular muscle movement. There is negative test of skew. No obvious abnormalities with head impulse testing. 5 of 5 strength in upper and lower extremities in flexion extension. Intact sensation to light touch in upper and lower extremity dermatomes. No truncal or extremity ataxia. No dysdiadochokinesia. Normal gait. 2+ reflexes in upper and lower extremities. No meningeal signs. Negative Babinski. NIH of 0. Skin: No rash or lesions noted MEDICAL DECISION MAKING: Chief Complaint: Hypoglycemia External records reviewed: Medications reviewed: Patient is currently on insulin 13 units subcu twice daily, long-acting insulin for 60 units nightly, metformin and dulaglutide Factors affecting care: Type 2 diabetes MDM Narrative: The patient was initially hemodynamically stable, afebrile and nontoxic- appearing. She had nonfocal neuroexam. She was awake alert and oriented. She had cogent thoughts goal-directed thought processes. She not appear in distress, diaphoretic or confused I considered the following differential diagnosis: Hypoglycemia, ACS, anemia, arrhythmia, electrolyte disturbance, UTI, dehydration mass, ICH, posterior circulation CVA I obtained a broad lab and imaging workup to further elucidate etiologies of the patient's complaints. The patient's neurologic exam was not consistent with a posterior circulation CVA (no ataxia, unremarkable hints exam) ALL IMAGES (IF OBTAINED) HAVE BEEN PERSONALLY REVIEWED AND INTERPRETED BY MYSELF. EKG with normal sinus rhythm, normal axis, normal intervals, no STEMI CBC with leukocytosis suggestive of systemic inflammation, no anemia or thrombocytopenia CT scan of the head shows no evidence of intracranial abnormality I have personally reviewed the patient's chest x-ray. Chest x-ray is unremarkable for pulmonary edema, pneumothorax, pneumonia or focal cardiopulmonary abnormality. High-sensitivity troponin is negative, no evidence of myocardial ischemia Urinalysis shows no evidence of urinary inflammation suggestive of UTI CT scan of the brain shows no evidence of intracranial normality BMP without evidence of significant electrolyte abnormalities, no anion gap, no acute kidney injury. Shows a glucose of 135. LFTs show no evidence of hepatobiliary pathology. Glucose remained stable The patient is not on any long-acting glucose lowering medication such as sulfonylurea. Glucose remained stable. She is appropriate discharge home. She is encouraged to eat small frequent meals that contained carbohydrates or sugar. Encouraged to eat a midnight snack. She was instructed to her blood sugars regularly at home. Strict return precautions were discussed The patient and/or family, caregivers express understanding. The patient and/or family, caregivers agrees with the plan. Shared decision making: I will have a discussion with the patient and or visitors regarding risk/benefits of further testing or admission. They will be made aware of of the risk/benefits inherent in this decision they will be given the opportunity to voice understanding. Total critical care time today provided was at least 0 minutes. This excludes separately billable procedures. Critical care time (if documented) is secondary to the patient having high probability of clinically significant/life threatening deterioration in the patient's condition which required my urgent intervention. Impression: 1. Hypoglycemia 2. History of type 2 diabetes Dispo: Discharge home This note was generated with [employer] dictation software. It may contain incorrect words, spelling, and punctuation that were not noted in review of the chart prior to signing. Lab Data Labs: Laboratory Results - last 24 hr 03/04/24 03/04/24 17:20 19:51 WBC 12.7 H RBC 4.34 Hgb 12.8 Hct 40.5 MCV 93.3 MCH 29.5 MCHC 31.6 L RDW Std Deviation 45.6 H RDW Coeff of Kaushik 13.3 Plt Count 493 H MPV 10.1 Sodium 137 Potassium 4.5 Chloride 106 Carbon Dioxide 26.0 Anion Gap 5 BUN 13 Creatinine 0.61 Estim Creat Clear Calc 112.57 Est GFR (MDRD) Af Amer 132 Est GFR (MDRD) Non-Af 109 BUN/Creatinine Ratio 21.4 H Glucose 135 H Calcium 9.4 Total Bilirubin 0.20 AST 8 L ALT 17 Alkaline Phosphatase 81 Troponin I High Sens 3 Total Protein 6.9 Albumin 3.4 Globulin 3.5 Albumin/Globulin Ratio 1.0 Urine Color Straw Urine Clarity Clear Urine pH 6.0 Ur Specific [place] 1.010 Urine Protein 15 H Urine Glucose (UA) 50 H Urine Ketones Negative Urine Occult Blood Negative Urine Nitrite Negative Urine Bilirubin Negative Urine Urobilinogen Normal Ur Leukocyte Esterase 100 H Urine RBC 0 SEEN Urine WBC 50-100 SEEN Ur Squamous Epith Cells 5-10 SEEN Urine Bacteria 1+ Urine Mucus 0 SEEN POC Glucose 126 H Radiography Diagnostic Testing: Clinical Impression(s) from Imaging Studies Brain CT 03/04/24 17:05 IMPRESSION: Normal unenhanced CT scan of the brain. Electronically Signed: Thiago Quiroga MD at 18:32 EDT , Chest X-Ray 03/04/24 17:55 IMPRESSION: Degenerative changes, as described above. No demonstrated acute cardiopulmonary process. Electronically Signed: Thiago Quiroga MD at 18:33 EDT , Discharge Plan Triage Chief Complaint: Hypoglycemia ED Provider: Kayden Perry Dx/Rx/DC Orders Prescriptions: No Action aspirin [Adult Low Dose Aspirin] 81 mg tablet,delayed release (DR/EC) 81 mg PO DAILY acetaminophen [Tylenol] 325 mg capsule 325 mg PO Q4H PRN (Reason: Pain Or Fever) oxybutynin chloride 10 MG tablet extended release 24hr 10 mg PO QHS Patient Comments: urine retention pravastatin 40 MG tablet 40 mg PO DAILY Patient Comments: cholestrol metformin 1,000 MG tablet 1,000 mg PO BID Patient Comments: diabetes hydrochlorothiazide 25 MG tablet 25 mg PO DAILY Patient Comments: water pill lisinopril 40 MG tablet 40 mg PO DAILY Patient Comments: blood pressure fluoxetine 20 MG capsule 40 mg PO DAILY Patient Comments: depression topiramate 25 mg tablet 25 mg PO BID meloxicam 15 mg tablet 15 mg PO DAILY insulin degludec 100 unit/mL (3 mL) insulin pen 46 unit subcut QHS Fiasp FlexTouch U-100 Insulin 100 unit/mL (3 mL) insulin pen 13 unit subcut BID dulaglutide 4.5 mg/0.5 mL pen injector 4.5 mg subcut QWEEK oxybutynin chloride 15 mg tablet extended release 24hr 15 mg PO DAILY omeprazole 40 mg capsule,delayed release(DR/EC) 40 mg PO DAILY Qty: 30 0RF sucralfate [Carafate] 100 mg/mL suspension 10 ml PO BID PRN (Reason: epigastric pain) Qty: 300 0RF Primary Care Provider: Sourav Forbes Referrals: Sourav Forbes MD [Primary Care Provider] - Print Language: Estonian
--- NOTE | 2024-03-04 17:05 | CT_ITS ---
STUDY: CT BRAIN WITHOUT CONTRAST REASON FOR EXAM: Female, 53 years old. Dizziness RADIATION DOSAGE (If Supplied By Facility): CTDIvol = ( 44.99 ) mGy, DLP = ( 796.11 ) mGycm TECHNIQUE: Transaxial CT imaging of the brain was performed without administration of intravenous contrast material. Individualized dose optimization techniques were used for this CT. COMPARISON: November 06, 2023 FINDINGS: Normal soft tissue structures. Normal calvarium. Normal size ventricles and extra-axial spaces for the patient''s age. Normal white matter tracts of the cerebral hemispheres. Normal basal ganglia and thalami. Normal brainstem. Normal cerebellum. There is no intracranial hemorrhage. There are no findings of an acute ischemic infarction. Normal visualized paranasal sinuses. CT/Brain/Head without Contrast IMPRESSION: Normal unenhanced CT scan of the brain. Electronically Signed: Thiago Quiroga MD at 18:32 EDT ,
--- NOTE | 2024-03-04 17:07 | EKG12_ITS ---
Test Reason : HYPOGLYCEMIA Blood Pressure : / mmHG Vent. Rate : 083 BPM Atrial Rate : 083 BPM P-R Int : 150 ms QRS Dur : 082 ms QT Int : 374 ms P-R-T Axes : -11 088 015 degrees QTc Int : 439 ms Normal sinus rhythm with sinus arrhythmia Low voltage QRS Borderline ECG Confirmed by KARYN COL[place], SANDRA ([id number]), digital editor LIZZIE DUNN ([id number]) on 03/05/2024 1:22:24 PM Referred By: Confirmed By:SANDRA BOSS MD
[2024-03-04] MEDS: Dextrose 5%/0.9% NaCl 1,000 ML 200 ML IV (17:38)
[2024-03-04 17:45] LABS: Mucous, Urine 0 SEEN /hpf (<or=2+); Red Blood Cells-Urine 0 SEEN /hpf (0-5)
[2024-03-04 17:47] LABS: Hematocrit 40.5 % (37-47); Hemoglobin 12.8 g/dL (12.0-15.0); Mean Corp Hgb Conc 31.6 g/dL (32-36); Mean Corpuscular Hgb 29.5 pg (27.0-32.0); Mean Corpuscular Volume 93.3 fL (81-99); Mean Platelet Vol. 10.1 fl (6.2-12.0); Platelet Count 493 K/mm3 (150-450); RBC Distribution Width CV 13.3 % (11.6-14.6); RBC Distribution Width SD 45.6 fl (35.1-43.9); Red Blood Count 4.34 M/mm3 (4.2-5.4); White Blood Count 12.7 K/mm3 (4.4-11.0)
--- NOTE | 2024-03-04 17:55 | RAD_ITS ---
STUDY: X-RAY CHEST REASON FOR EXAM: Female, 53 years old. Dizziness TECHNIQUE: Single AP portable view of the chest. COMPARISON: December 20, 2023 FINDINGS: The lungs are clear and expanded. There is no demonstrated pleural abnormality. Normal size heart. Normal mediastinum and mahendra. Normal visualized pulmonary arteries. Normal visualized aortic arch and descending thoracic aorta. There are diffuse degenerative changes of the visualized thoracic spine. Normal visualized ribs, clavicles, and shoulders. There is no demonstrated abnormality of the visualized soft tissue structures of the upper abdomen. RAD/Chest 1 View (Portable) IMPRESSION: Degenerative changes, as described above. No demonstrated acute cardiopulmonary process. Electronically Signed: Thiago Quiroga MD at 18:33 EDT ,
[2024-03-04 18:03] LABS: Color, Urine Straw (Yellow); Glucose, Dipstick 50 mg/dl (Normal); Ketone-Dipstick Negative (Negative); Leukocyte Esterase-Dipstick 100 /ul (Negative); Nitrite-Dipstick Negative (Negative); Occult Blood-Urine Negative /ul (Negative); Protein-Dipstick 15 mg/dl (Negative); Urine Bilirubin Dipstick Negative (Negative); Urine Clarity Clear (Clear); Urine Urobilinogen Normal (Normal)
[2024-03-04 18:16] LABS: Bacteria 1+ /hpf (None Seen); Squamous Epithelial Cells - UA 5-10 SEEN /hpf (5-10); White Blood Cells 50-100 SEEN /hpf (0-5)
[2024-03-04 18:31] VITALS: BP 113/69; PULSE 84; RESP 18; O2SAT 99
[2024-03-04 18:41] LABS: AST(SGOT) 8 U/L (15-37); Alanine Aminotransfer ALT/SGPT 17 U/L (13-56); Albumin, Serum 3.4 g/dL (3.2-5.0); Alkaline Phosphatase 81 U/L (45-117); Anion Gap 5 (5-15); BUN 13 mg/dL (7-18); BUN/Creat Ratio 21.4 RATIO (10-20); Calcium,Total 9.4 mg/dL (8.5-10.1); Chloride 106 mmol/L (98-107); Creatinine, Serum 0.61 mg/dL (0.55-1.02); EST Glomerular Filtration Rate 109 mL/min (>60); Est Glom Filt Rate - Afr Amer 132 mL/min (>60); Estimated Creatinine Clearance 112.57 ml/min; Globulin 3.5 g/dL (2.2-4.2); Glucose 135 mg/dL (74-106); Potassium 4.5 mmol/L (3.5-5.1); Protein, Total 6.9 g/dL (6.4-8.2); Sodium Level 137 mmol/L (136-145); Troponin-I HS 3 pg/mL (3.0-54.0)
[2024-03-04 20:10] LABS: Bedside Glucose 126 mg/dL (74-106)
[2024-03-04 20:40] VITALS: BP 136/81; PULSE 81; RESP 14; TEMP 35.5; O2SAT 100
== END 2024-03-04 20:40 | disposition home or self-care (01) ==
PROVIDERS: Emergency Provider Emergency Medicine; PCP Internal Medicine; Visit Provider Emergency Medicine
DX: E11.649 Type 2 diabetes mellitus with hypoglycemia without coma (principal); Z79.4 Long term (current) use of insulin; Z79.84 Long term (current) use of oral hypoglycemic drugs; I10 Essential (primary) hypertension; E78.00 Pure hypercholesterolemia, unspecified; F32.A Depression, unspecified; Z79.899 Other long term (current) drug therapy; Z79.82 Long term (current) use of aspirin; Z79.85 Long-term (current) use of injectable non-insulin antidiabetic drugs
CPT/HCPCS: 70450; 71045; 80053; 81001; 82962; 84484; 85027; 93005; 96360; 96361; 99284; A4216

== ENCOUNTER 2024-12-28 03:54 | Emergency (ER) | payer MEDICARE, SELFPAY ==
[2024-12-28 03:55] VITALS: BP 193/94; PULSE 89; RESP 20; TEMP 36.8; O2SAT 99; BMI 46.3
[2024-12-28 04:50] LABS: Hematocrit 41.1 % (37-47); Hemoglobin 13.5 g/dL (12.0-15.0); Immature Granulocytes Count 0.070 X10^3/uL (0.0-0.0); Mean Corp Hgb Conc 32.8 g/dL (32-36); Mean Corpuscular Volume 89.3 fL (81-99); Mean Platelet Vol. 9.9 fl (6.2-12.0); NRBC Flagged by Analyzer 0 % (0-5); Platelet Count 522 K/mm3 (150-450); RBC Distribution Width CV 14.4 % (11.6-14.6); RBC Distribution Width SD 46.3 fl (35.1-43.9); Red Blood Count 4.60 M/mm3 (4.2-5.4); White Blood Count 15.7 K/mm3 (4.4-11.0)
[2024-12-28 05:00] VITALS: BP 144/80; PULSE 84; RESP 18; O2SAT 96
[2024-12-28 05:38] LABS: Anion Gap 13 (5-15); BUN 17 mg/dL (4-19); BUN/Creat Ratio 23.8 RATIO (10-20); Calcium,Total 10.0 mg/dL (7.6-11.0); Carbon Dioxide 22.2 mmol/L (21.0-32.0); Chloride 103 mmol/L (98-108); Estimated Creatinine Clearance 104.55 ml/min (50-250); Glucose 231 mg/dL (70-99); Potassium 4.1 mmol/L (3.3-5.1)
[2024-12-28 05:51] LABS: Mucous, Urine 0 SEEN /hpf (<or=2+)
[2024-12-28 05:52] LABS: Color, Urine Yellow (Yellow); Glucose, Dipstick 100 mg/dl (Normal); Ketone-Dipstick Negative (Negative); Leukocyte Esterase-Dipstick 500 /ul (Negative); Nitrite-Dipstick Negative (Negative); Occult Blood-Urine 250 /ul (Negative); Protein-Dipstick 100 mg/dl (Negative); Specific Gravity, Urine 1.030 (1.002-1.030); Urine Bilirubin Dipstick Negative (Negative)
[2024-12-28 06:49] LABS: Calcium Oxalate Crystals Ur 1+ /hpf (<or=2+); Red Blood Cells-Urine 5-10 SEEN /hpf (0-5); Squamous Epithelial Cells - UA 0-5 SEEN /hpf (5-10)
[2024-12-28 06:57] VITALS: BP 152/72; PULSE 75; RESP 18; TEMP 36.8; O2SAT 99
== END 2024-12-28 06:59 | disposition home or self-care (01) ==
PROVIDERS: Emergency Provider Emergency Medicine; PCP Internal Medicine; Visit Provider Emergency Medicine
DX: R10.9 Unspecified abdominal pain (principal); E11.9 Type 2 diabetes mellitus without complications; Z79.4 Long term (current) use of insulin; N20.0 Calculus of kidney; I10 Essential (primary) hypertension; D72.829 Elevated white blood cell count, unspecified; E78.00 Pure hypercholesterolemia, unspecified; Z79.899 Other long term (current) drug therapy; Z79.84 Long term (current) use of oral hypoglycemic drugs; F32.A Depression, unspecified
CPT/HCPCS: 74176; 80048; 81001; 85025; 87086; 87088; 96374; 96375; 99283; A4216; J2405